=== PATIENT | female | born 1995 | race Caucasian/White ===

== ENCOUNTER 2023-12-11 10:16 | Outpatient (OUT) | payer BC, SELFPAY ==
[2023-12-11 10:44] LABS: Basophils Percent Auto 0.5 % (0.2-2.0); Eosinophils Absolute Auto 0.4 10^3/uL (0.0-0.7); Eosinophils Percent Auto 4.9 % (0.9-7.0); Hemoglobin 12.6 g/dL (12.0-16.0); Immature Granulocytes Abs Auto 0.01 10^3/uL (0.00-0.03); Immature Granulocytes Pct Auto 0.1 % (0.0-0.5); Lymphocytes Absolute Auto 3.1 10^3/uL (1.2-3.8); Lymphocytes Percent Auto 35.3 % (20.5-60.0); Mean Corpuscular HGB Conc 33.2 g/dL (29.9-35.2); Mean Corpuscular Hemoglobin 28.1 pg (26.7-34.0); Mean Corpuscular Volume 84.8 fL (81.0-99.0); Mean Platelet Volume 8.8 fL (9.5-13.5); Monocytes Absolute Auto 0.6 10^3/uL (0.3-0.8); Monocytes Percent Auto 7.1 % (1.7-12.0); Neutrophils Absolute Auto 4.6 10^3/uL (1.4-6.5); Neutrophils Percent Auto 52.1 % (43.0-75.0); Platelet Count 325 10^3/uL (150-450); Red Blood Count 4.48 10^6/uL (4.20-5.40); Red Cell Distribution Width 12.4 % (11.0-15.0); White Blood Count 8.8 10^3/uL (4.0-11.0)
[2023-12-11 10:59] LABS: INR 0.96; Partial Thromboplastin Time 32.8 sec (22.3-36.2); Prothrombin Time 10.2 sec (9.0-11.6)
[2023-12-11 11:26] LABS: HCG Quantitative <1 mIU/mL; Thyroid Stimulating Hormone 1.049 uIU/mL (0.358-3.740)
[2023-12-11 11:33] LABS: Estimated Average Glucose 103 mg/dL; Glycohemoglobin A1C 5.2 % (4.5-6.2)
[2023-12-11 11:43] LABS: Free T4 0.97 ng/dL (0.76-1.46)
== END 2023-12-11 10:17 | disposition home or self-care (01) ==
LOC: LAB 10:21
PROVIDERS: PCP Family Medicine; Visit Provider Obstetrics & Gynecology
DX: N92.0 Excessive and frequent menstruation with regular cycle (principal)
CPT/HCPCS: 36415; 83036; 84439; 84443; 84702; 85025; 85610; 85730

== ENCOUNTER 2024-02-18 20:37 | Outpatient (REF) | payer BC, SELFPAY ==
--- OUTSIDE RECORDS SUMMARY | 2024-02-18 20:42 | XMS_ITS | CCD ---
Author Organization [facility] Care Team Providers Care Parts Identification Technician Name Role Phone Chris Zazueta Attending Unavailable Saji Mays~[phone] UNKNOWN Primary Care Unavailable DENICE, DR VIVIAN Welch Consulting Unavailabl e DENICE, DR VIVIAN Welch Admitting Unavailabl e CHRISY ., DR LENNON Primary Care Unavailable DENICE, DR VIVIAN Welch Attending Unavailabl e JERICHJOEL ., JACKSON JAY Consulting Unavailchristine e MICHELLE ., DR LENNON Attending Unavailable HOY ., DR LENNON Primary Care Unavailable HOY ., DR LENNON Admitting Unavailable OSVALDO SIDDIQI Attending Unavailable OSVALDO SIDDIQI Consulting Unavailable OSVALDO SIDDIQI Admitting Unavailable CHRISY ., DR LENNON Primary Care Unavailable MICHELLE ., DR LENNON Primary Care Unavailable MARKER ., DR BROOKE Attending Unavailable MARKER ., DR BROOKE Consulting Unavailable MARKER ., DR BROOKE Admitting Unavailable JAC HOGUE Consulting Unavailable Unavailable Primary Care Provider UnavailSaji Caldera MD Primary Care Provider [phone] KRISTEN BEARD Attending Unavailable Allergies Allergy Classification Reported Allergen(s) Allergy Type Date of Onset Reaction(s) Facility (3 sources) Sulfamethoxazole / Trimethoprim; Translations: [Bactrim] Drug Allergy 7 [facility] Repository (2 sources) Sulfamethoxazole / Trimethoprim Drug Allergy 4 Unknown [facility] Medications Current Medications Medication Drug Class(es) Dates Sig (Normalized) Sig (Original) cephalexin 500 mg oral capsule (1 source) Cephalosporin Antibacterial Start: 12-11-2023 End: 12-25-2023 take 1 capsule by mouth in the morning, then take 1 capsule by mouth in the evening, then take 1 capsule by mouth at bedtime cephalexin (Keflex) 500 MG capsule Indications: Crampy pain associated with menses Take 1 capsule (500 mg) by mouth in the morning and 1 capsule (500 mg) in the evening and 1 capsule (500 mg) before bedtime. Do all this for 14 days. 102 capsule 0 12/11/2023 12/25/2023 Active citalopram 40 mg oral tablet (1 source) Serotonin Reuptake Inhibitor take 1 tablet by mouth once daily citalopram (CeleXA) 40 MG tablet TAKE 1 TABLET BY MOUTH ONCE DAILY for 90 days 0 Active 24 hr metFORMIN hydrochloride 500 mg extended release oral tablet (1 source) Biguanide Start: 12-11-2023 End: 12-10-2024 take 1 tablet by mouth every twenty-four hours at mealtime metFORMIN XR (Glucophage-XR) 500 MG 24 hr tablet Indications: Irregular periods/menstrual cycles Take 1 tablet (500 mg) by mouth in the evening. Take with meals Do not crush, chew, or split. 30 tablet 11 12/11/2023 12/10/2024 Active nystatin 100 unt/mg topical powder (1 source) Polyene Antifungal Start: 01-13-2023 nystatin (Mycostatin) 175840 UNIT/GM powder Apply a small amount to skin twice a day 0 01/13/2023 Active omeprazole 20 mg delayed release oral capsule (1 source) Proton Pump Inhibitor take 1 capsule by mouth once daily omeprazole (PriLOSEC) [address] capsule TAKE 1 CAPSULE BY MOUTH ONCE DAILY for 90 days 0 Active ondansetron 4 mg oral tablet (1 source) Serotonin-3 Receptor Antagonist Start: 04-03-2023 take 1 tablet by mouth every twenty-four hours as needed ondansetron (Zofran) 4 MG tablet Take 4 mg by mouth Daily as needed 0 04/03/2023 Active predniSONE 20 mg oral tablet (1 source) Start: 01-13-2023 take 3 tablets by mouth in the morning predniSONE (Deltasone) 20 MG tablet Take 60 mg by mouth in the morning. 0 01/13/2023 Active Vit-Fe Fumarate-FA ( Vitamin) 27-0.8 MG tablet (1 source) Vit-Fe Fumarate-FA ( Vitamin) 27-0.8 MG tablet 1 (one) time each day at the same time 0 Active Problems Active Problems Problem Classification Problem Date Documented Da te Episodic/Chronic Other female genital disorders (1 source) Abnormal uterine and vaginal bleeding, unspecified; Translations: [ABNORMAL UTERINE VAGINAL BLEED UNS] Onset: 11-11-2022 Chronic Substance-related disorders (1 source) Nicotine dependence, cigarettes, uncomplicated; Translations: [NICOTINE DEPEND CIGARETTES UNCOMP] Onset: 11-11-2022 Chronic Unclassified (3 sources) COUGH, UNSPECIFIED; Translations: [COUGH, UNSPECIFIED] Onset: 11-07-2022 Unclassified (1 source) UNVACCINATED FOR COVID-19; Translations: [UNVACCINATED FOR COVID-19] Onset: 11-07-2022 Unclassified (4 sources) CONTACT W/AND (SUSP) EXPOS COVID-19; Translations: [CONTACT W/AND (SUSP) EXPOS COVID-19] Onset: 10-25-2022 Past or Other Problems Problem Classification Problem Date Documented Da te Episodic/Chronic Other aftercare (1 source) Other halfway (current) drug therapy; Translations: [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] Onset: 11-11-2022 Episodic Other upper respiratory disease (1 source) Nasal congestion; Translations: [NASAL CONGESTION] Onset: 10-25-2022 Episodic Other upper respiratory infections (1 source) Acute upper respiratory infection, unspecified; Translations: [ACUTE UP RESPIRATORY INFECTION UNS] Onset: 11-11-2022 Episodic Unclassified (1 source) COUGH, UNSPECIFIED; Translations: [COUGH, UNSPECIFIED] Onset: 11-07-2022 Unclassified (1 source) CONTACT W/AND (SUSP) EXPOS COVID-19; Translations: [CONTACT W/AND (SUSP) EXPOS COVID-19] Onset: 10-22-2022 Urinary tract infections (1 source) Urinary tract infection, site not specified; Translations: [UTI SITE NOT SPECIFIED] Onset: 11-11-2022 Episodic Results Test Name Value Interpretation Reference Range Facil ity ALL CBC WITH AUTO DIFFon BASOPHILS ABSOLUTE AUTO 0.0 [facility] Basophils/100 WBC (Bld) 0.5 % 0.2 - 2.0 % [facility] Eosinophils/100 WBC (Bld) 4.9 % 0.9 - 7.0 % [facility] Erythrocyte distribution width (RBC) [Ratio] 12.4 % 11.0 - 15.0 % [facility] Hematocrit (Bld) [Volume fraction] 38.0 % 36.0 - 48.0 % [facility] Hemoglobin (Bld) [Mass/Vol] 12.6 g/dL 12.0 - 16.0 g/dL [facility] IMMATURE GRANULOCYTES ABS AUTO 0.01 [facility] Immature granulocytes/100 WBC (Bld) 0.1 % 0.0 - 0.5 % [facility] Interpretation and review of laboratory results Abnormal [facility] LYMPHOCYTES ABSOLUTE AUTO 3.1 [facility] Lymphocytes/100 WBC (Bld) 35.3 % 20.5 - 60.0 % [facility] MCH (RBC) [Entitic mass] 28.1 pg 26.7 - 34.0 pg [facility] MCHC (RBC) [Mass/Vol] 33.2 g/dL 29.9 - 35.2 g/dL [facility] MCV (RBC) [Entitic vol] 84.8 fL 81.0 - 99.0 fL [facility] MONOCYTES ABSOLUTE AUTO 0.6 [facility] Monocytes/100 WBC (Bld) 7.1 % 1.7 - 12.0 % [facility] NEUTROPHILS ABSOLUTE AUTO 4.6 [facility] Neutrophils/100 WBC (Bld) 52.1 % 43.0 - 75.0 % [facility] Platelet mean volume (Bld) [Entitic vol] 8.8 fL Low 9.5 - 13.5 fL [facility] EO # 0.4 [facility] PLT 325 [facility] RBC 4.48 [facility] WBC 8.8 [facility] CULTURE URINEon 11-07-2022 CULTURE URINE Culture Observations: MODERATE GROWTH OF MIXED GENITAL RASHIDA. NO POTENTIAL PATHOGENS SEEN. Normal [facility] Comment on above: Performed By: #### U RCX #### [facility] [address] [address] [address] Crys Hutchinson ER URINE PROFILEon 3 Bilirubin Ql (U) Negative Normal NEGATIVE [facility] Comment on above: Performed By: #### P REGU, UMICRO, ERUR #### [facility] [address] [place], [place] [address] Dr. Crys Hutchinson Clarity (U) CLEAR Normal CLEAR [facility] Comment on above: Performed By: #### P REGU, UMICRO, ERUR #### [facility] [address] [address] [address] Crys Hutchinson Color (U) LT. YELLOW Normal YELLOW [facility] Comment on above: Performed By: #### P REGU, UMICRO, ERUR #### [facility] [address] [address] [address] Crys CLAYTOND A micrscopic examination will be performed if indicated. Normal [facility] Comment on above: Performed By: #### P REGU, UMICRO, ERUR #### [facility] [address] [address] [address] Crys Hutchinson Glucose Ql (U) Negative Normal NEGATIVE [facility] Comment on above: Performed By: #### P REGU, UMICRO, ERUR #### [facility] [address] [address] [address] Crys Hutchinson Hemoglobin Ql (U) LARGE Abnormal NEGATIVE [facility] Comment on above: Performed By: #### P REGU, UMICRO, ERUR #### [facility] [address] [address] [address] Crys Hutchinson Ketones Ql (U) Negative Normal NEGATIVE [facility] Comment on above: Performed By: #### P REGU, UMICRO, ERUR #### [facility] [address] [address] [address] Crys Hutchinson LEUKOCYTES TRACE Abnormal NEGATIVE [facility] Comment on above: Performed By: #### P REGU, UMICRO, ERUR #### [facility] [address] [address] [address] Crys Hutchinson Nitrite Ql (U) Negative Normal NEGATIVE [facility] Comment on above: Performed By: #### P REGU, UMICRO, ERUR #### [facility] [address] [address] [address] Crys Hutchinson pH (U) 5.5 [pH] Normal 5-9 [facility] Comment on above: Performed By: #### P REGU, UMICRO, ERUR #### [facility] [address] [address] [address] Crys Hutchinson SPEC GRAVITY 1.020 Normal 1.005-<=1.025 [facility] Comment on above: Performed By: #### P REGU, UMICRO, ERUR #### [facility] [address] [address] [address] Crys Hutchinson UA PROTEIN Negative Normal NEGATIVE/ TRACE [facility] Comment on above: Performed By: #### P REGU, UMICRO, ERUR #### [facility] [address] [place] [address] Dr. Crys Hutchinson UR MICRO IND INDICATED Normal [facility] Comment on above: Performed By: #### P REGU, UMICRO, ERUR #### [facility] [address] [place] [address] Dr. Crys Hutchinson Urobilinogen Qn (U) 0.2 {Ryann'U}/dL Normal 0.2 - 1. 0 [facility] Comment on above: Performed By: #### P REGU, UMICRO, ERUR #### [facility] [address] [place] [address] Dr. Crys Hutchinson URon 11-07-2022 , QUAL Negative Normal NEGATIVE [facility] Comment on above: Performed By: #### P REGU, UMICRO, ERUR #### [facility] [address] [place] [address] Dr. Crys Hutchinson URINE MICROSCOPIC ONLYon BACTERIA SMALL Abnormal NONE SEEN [facility] Comment on above: Performed By: #### P REGU, UMICRO, ERUR #### [facility] [address] [place] [address] Dr. Crys Hutchinson Bacteria identified Cx Nom (U) INDICATED Normal [facility] Comment on above: Performed By: #### P REGU, UMICRO, ERUR #### [facility] [address] [place] [address] Dr. Crys Hutchinson CAST NONE SEEN Normal NONE SEEN [facility] Comment on above: Performed By: #### P REGU, UMICRO, ERUR #### [facility] [address] [address] [address] Crys Hutchinson Crystals LM Nom (Urine sed) NONE SEEN Normal NONE SEEN [facility] Comment on above: Performed By: #### P REGU, UMICRO, ERUR #### [facility] [address] [address] [address] Crys Hutchinson Epithelial cells LM Ql (Urine sed) FEW Abnormal NONE SEEN /RARE [facility] Comment on above: Performed By: #### P REGU, UMICRO, ERUR #### [facility] [address] [address] [address] Crys Hutchinson MUCOUS NONE SEEN Normal NONE SEEN [facility] Comment on above: Performed By: #### P REGU, UMICRO, ERUR #### [facility] [address] [address] [address] Crys Hutchinson RBC 10-20 Abnormal 0-2 [facility] Comment on above: Performed By: #### P REGU, UMICRO, ERUR #### [facility] [address] [address] [address] Crys Hutchinson WBC 2-5 Abnormal NONE SEEN [facility] Comment on above: Performed By: #### P REGU, UMICRO, ERUR #### [facility] [address] [address] [address] Crys Hutchinson XR CHEST 1 Von 11-06-2022 XR CHEST 1 V EXAMINATION: XR CHEST 1 V HISTORY: Cough COMPARISON: None. TECHNIQUE: Portable chest FINDINGS: The lung parenchyma is free of consolidation or infiltrate. No pneumothorax or pleural effusion. The cardiac, mediastinal and hilar contours are normal. The visualized osseous structures exhibit no gross abnormality. IMPRESSION: Normal chest x-ray. Electronically authenticated by: JAC HOGUE Date: 2022-11-05 22:55 Normal [facility]on 10-27 SARS-CoV-2 (COVID-19) RNA ALTAF+probe Ql (Unsp spec) Not detected Normal NOT DETECTED [facility] Comment on above: Result Comment: This test is not yet approved or cleared by the [place] FDA. When there are no FDA-approved or cleared tests available, and other criteria are met, FDA can make tests available under an emergency access mechanism called an Emergency Use Authorization (EUA). The EUA for this test is supported by the Building Illuminating Engineer of Health and Human Service's (HHS's) declaration that circumstances exist to justify the emergency use of in vitro diagnostics for the detection and/or diagnosis of the virus that causes COVID-19. This EUA will remain in effect (meaning this test can be used) for the duration of the COVID-19 declaration justifying emergency of IVDs, unless it is terminated or revoked by FDA (after which the test may no longer be used). When diagnostic testing is negative, the possibility of a false negative should be considered in the context of a patient's recent exposures and the presence of clinical signs and symptoms consistent with SARS-CoV-2. Performed By: #### C VDTBH #### [facility] [address] [place] [address] Dr. Crys Hutchinson GROUP A STREP CULTUREon 10-27 S. pyogenes Ag Ql (Unsp spec) Culture Observations: NEGATIVE FOR GROUP A STREPTOCOCCUS. Normal [facility] Comment on above: Performed By: #### S PAT GRASTCX #### [facility] [address] [place] [address] Dr. Crys Hutchinson INFLUENZA A AND B AGon 11-05 INFLUENZA A AG Negative Normal NEGATIVE SEE COMMENT [facility] Comment on above: Performed By: #### I NFLUAB #### [facility] [address] [place] [address] Dr. Crys Hutchinson INFLUENZA B AG Negative Normal NEGATIVE SEE COMMENT [facility] Comment on above: Performed By: #### I NFLUAB #### [facility] [address] [place] [address] Dr. Crys Hutchinson STREPT SCREENon 11-05-2022 STREP SCREEN A Negative Normal NEGATIVE [facility] Comment on above: Performed By: #### S PAT GRASTCX #### [facility] [address] [place], [place] [id number] Dr. Crys Hutchinson Covid-19 PCR [facility]on 09-27 SARS-CoV-2 (COVID-19) RNA ALTAF+probe Ql (Unsp spec) Not detected Normal NOT DETECTED [facility] Comment on above: Result Comment: This test is not yet approved or cleared by the [place] FDA. When there are no FDA-approved or cleared tests available, and other criteria are met, FDA can make tests available under an emergency access mechanism called an Emergency Use Authorization (EUA). The EUA for this test is supported by the Lester of Health and Human Service's (HHS's) declaration that circumstances exist to justify the emergency use of in vitro diagnostics for the detection and/or diagnosis of the virus that causes COVID-19. This EUA will remain in effect (meaning this test can be used) for the duration of the COVID-19 declaration justifying emergency of IVDs, unless it is terminated or revoked by FDA (after which the test may no longer be used). When diagnostic testing is negative, the possibility of a false negative should be considered in the context of a patient's recent exposures and the presence of clinical signs and symptoms consistent with SARS-CoV-2. Performed By: #### P RIDGE PALACIOS, YOLANDA #### [facility] [address] [place] [address] Dr. Crys Hutchinson INFLUENZA A AND B AGon 10-22 [facility] SEE BELOW Normal [facility] Comment on above: Result Comment: Nega tive for Flu A protein angiten. Infection due to Flu A cannot be ruled out. Flu A angiten in the sample may be below the detection limit of the test. Performed By: #### I NFLUAB #### [facility] [address] [place] [address] Dr. Crys Hutchinson INFLUBNEG SEE BELOW Normal [facility] Comment on above: Result Comment: Nega tive for Flu B protein antigen. Infection due to Flu B cannot be ruled out. Flu B antigen in the sample may be below the detection limit of the test. Performed By: #### I NFLUAB #### [facility] [address] [place] [address] Dr. Crys Hutchinson INFLUENZA A AG Negative Normal NEGATIVE SEE COMMENT [facility] Comment on above: Performed By: #### I NFLUAB #### [facility] [address] [address] [address] Crys Hutchinson INFLUENZA B AG Negative Normal NEGATIVE SEE COMMENT [facility] Comment on above: Performed By: #### I NFLUAB #### [facility] [address] [address] [address] Crys Hutchinson INTERNAL CONTROLS Within Normal Limits Normal Within Normal Limits [facility] Comment on above: Performed By: #### I NFLUAB #### [facility] [address] [address] [address] Crys Hutchinson Encounters Encounter Date Encounter Type Care Provider Facility Start: 12-11-2023 [facility] Result Encounter Kristen Kisha DO Work Phone: [facility] Unsolicited Start: 12-11-2023 [facility] Result Encounter Kristen Kisha DO Work Phone: [facility] Unsolicited Start: 12-11-2023 End: 12-11-2023 ambulatory KRISTEN KISHA Not Available Start: 12-10-2023 Chart abstracting Kristen Kisha DO Work Phone: [facility] Start: 01-15-[address] SAJI MAYS . Facili ty:[facility] Start: 11-07-2022 End: 11-07-[address] VIVIAN GALDAMEZ Facility:[facility] Start: 11-05-2022 End: 11-06-[address] SAJI MAYS . Facility:[facility] Start: 10-22-2022 End: 10-22-2022 ambulatory OSVALDO SIDDIQI Facility:[facility] Start: 12-31-2018 End: 01-01-2019 Patient encounter procedure Chris Morrisshant Facility:CD:[id number] Procedures Date Procedure Procedure Detail Performing Clinician Start: 12-11-2023 ALL CBC WITH AUTO DIFF Kristen Kisha DO Work Phone: Plan of Treatment Date Care Activity Detail Author Start: 02-18-2024 End: 02-18-2024 Patient encounter procedure 02/18/2024 3:00 PM EDT Office Visit [facility] [address] [place] [address] Kristen Beard, DO [address] [place] [address] [facility] Start: 12-11-2023 End: 12-11-2023 Patient encounter procedure 12/11/2023 9:00 AM EST Office Visit [facility] [address] [place] [address] Kristen Beard, DO [address] [place] [address] Irregular periods/menstrual cycles; Crampy pain associated with menses [facility] Comment on above: Irregular periods/me nstrual cycles; Crampy pain associated with menses Payers Date Payer Category Payer Unknown BCBS BCBS [id number] 2023-Present [phone] [address] [place] [address] [id number] 2023 Unknown [id number] 2018 Private Health Insurance 1997 Unknown [id number] 1997 Unknown [id number] 1997 Unknown [id number] 1997 Unknown [id number] 1997 Unknown [id number] 93 1997 Unknown [id number] 1959 Self-pay [id number] 1957 Unknown [id number] Social History Date Type Detail Facility Start: 12-10-2023 Tobacco smoking stat [facility] Tobacco smoking consumption unknown [facility] Start: 12-10-2023 End: 12-11-2023 Alcohol intake Ex-drinker (finding) [facility] Start: 12-10-2023 Tobacco Comment * current smok er frequency unknown [facility] Start: 12-10-2023 Alcohol Comment Recently quit [facility] Start: 1995 Sex Assigned At Not on file [facility] Gender identity Not on file [facility] Summary Purpose Family History No Family History Records FoundNo Family History Records FoundNo Family History Records Found Advance Directives No Advanced Directives Records FoundNo Advanced Directives Records FoundNo Advanced Directives Records Found Additional Source Comments INFORMATION SOURCE (unrecogn ized section and content) DATE CREATED AUTHOR 01/02/2019 [facility] DATE CREATED AUTHOR AUTHOR'S ORGANIZ ATION 02/28/2023 [facility] DATE CREATED AUTHOR AUTHOR'S ORGANIZ ATION 12/13/2023 [facility] EPIC Care Teams (unrecognized sec tion and content) Parts Identification Technician Relationship Specialty Start Date End Date Saji Mays MD [address] [place] [address] PCP - General Family Medicine 12/11/23 FOR RECORDS PERTAINING TO PATIENTS WHO ARE OR HAVE BEEN ENROLLED IN A CHEMICAL DEPENDENCY/SUBSTANCEABUSE PROGRAM, SOME INFORMATION MAY BE OMITTED. This clinical summary was aggregated from multiple sources. Caution should be exercised in using it in the provision of clinical care. This summary normalizes information from multiple sources, and as a consequence, information in this document may materially change the coding, format and clinical context of patient data. In addition, data may be omitted in some cases. CLINICAL DECISIONS SHOULD BE BASED ON THE PRIMARY CLINICAL RECORDS. [facility]. provides no warranty or guarantee of the accuracy or completeness of information in this document.
[2024-02-24 14:09] LABS: Age Gdln ACOG Testing Note (.); IGP, rfx Aptima HPV ASCU Note (.)
== END 2024-02-18 20:38 | disposition home or self-care (01) ==
LOC: LAB 20:37
PROVIDERS: PCP Family Medicine; Visit Provider Obstetrics & Gynecology
DX: Z01.419 Encounter for gynecological examination (general) (routine) without abnormal findings (principal)
CPT/HCPCS: G0145

== ENCOUNTER 2024-11-23 16:37 | Outpatient (OUT) | payer BC, SELFPAY ==
--- OUTSIDE RECORDS SUMMARY | 2024-11-23 16:42 | XMS_ITS | CCD ---
Author Organization [facility] [employer] (P)[facility] Care Team Providers Care Agriculture Scientist Name Role Phone Chris Zazueta Attending Unavailable Saji [phone] UNKNOWN Primary Care Unavailable DENICE, DR VIVIAN Welch Consulting Unavailabl e DENICE, DR VIVIAN Welch Admitting Unavailabl e MICHELLE ., DR LENNON Primary Care Unavailable JOVANIECK, DR VIVIAN Welch Attending Unavailabl e GRECHJOEL ., JACKSON JAY Consulting Unavailabl e HORsoa ., DR LENNON Attending Unavailable HOY ., DR LENNON Primary Care Unavailable HORosa ., DR LENNON Admitting Unavailable OSVALDO SIDDIQI Attending Unavailable OSVALDO SIDDIQI Consulting Unavailable OSVALDO SIDDIQI Admitting Unavailable MICHELLE ., DR LENNON Primary Care Unavailable HOY ., DR LENNON Primary Care Unavailable MARKER ., DR BROOKE Attending Unavailable MARKER ., DR BROOKE Consulting Unavailable MARKER ., DR BROOKE Admitting Unavailable JAC HOGUE Consulting Unavailable Unavailable Primary Care Provider Unavailchristine Mays MD, Saji Mirza Primary Care Provider [phone] KRISTEN BEARD Attending Unavailable KRISTEN BEARD Attending Unavailable ANNETTE BAEZ Attending Unavailable ANNETTE BAEZ Attending Unavailable Allergies Allergy Classification Reported Allergen(s) Allergy Type Date of Onset Reaction(s) Facility (3 sources) Sulfamethoxazole / Trimethoprim; Translations: [Bactrim] Drug Allergy 7 [facility] Repository (8 sources) Sulfamethoxazole / Trimethoprim Drug Allergy 4 [...] 12/25/2023 Active citalopram 40 mg oral tablet (7 sources) Serotonin Reuptake Inhibitor End: 11-15-2024 take 1 tablet by mouth once daily citalopram (CeleXA) 40 MG tablet TAKE 1 TABLET BY MOUTH ONCE DAILY for 90 days 11/15/2024 Discontinued clindamycin 10 mg/ml topical lotion (5 sources) Lincosamide Antibacterial Start: 09-15-2024 clindamycin (Cleocin T) 1 % lotion Indications: Acne vulgaris Apply thin layer to face, once daily in the morning, 30 day supply 60 mL 11 09/15/2024 Active 24 hr metFORMIN hydrochloride 500 mg extended release oral tablet (4 sources) Biguanide Start: 12-11-2023 End: 12-10-2024 take 1 tablet by mouth every twenty-four hours at mealtime metFORMIN XR (Glucophage-XR) 500 MG 24 hr tablet Indications: Irregular periods/menstrual cycles Take 1 tablet (500 mg) by mouth in the evening. Take with meals Do not crush, chew, or split. 30 tablet 11 12/11/2023 09/15/2024 Discontinued nystatin 100 unt/mg topical powder (4 sources) Polyene Antifungal Start: 01-13-2023 End: 09-15-2024 nystatin (Mycostatin) [id number] UNIT/GM powder Apply a small amount to skin twice a day 01/13/2023 09/15/2024 Discontinued omeprazole 20 mg delayed release oral capsule (7 sources) Proton Pump Inhibitor take 1 capsule by mouth once daily omeprazole (PriLOSEC) [address] capsule TAKE 1 CAPSULE BY MOUTH ONCE DAILY for 90 days Active ondansetron 4 mg oral tablet (7 sources) Serotonin-3 Receptor Antagonist Start: 04-03-2023 take 1 tablet by mouth every twenty-four hours as needed ondansetron (Zofran) 4 MG tablet Take 4 mg by mouth Daily as needed 04/03/2023 Active predniSONE 20 mg oral tablet (4 sources) Start: 01-13-2023 End: 09-15-2024 take 3 tablets by mouth in the morning predniSONE (Deltasone) 20 MG tablet Take 60 mg by mouth in the morning. 01/13/2023 09/15/2024 Discontinued Vit-Fe Fumarate-FA ( Vitamin) 27-0.8 MG tablet (4 sources) End: 09-15-2024 Vit-Fe Fumarate-FA ( Vitamin) 27-0.8 MG tablet 1 (one) time each day at the same time 09/15/2024 Discontinued Vit-Fe Fumarate-FA ( Vitamin) 27-0.8 MG tablet 1 (one) time each day at the same time Active Vit-Fe Fumarate-FA ( Vitamin) 27-0.8 MG tablet 1 (one) time each day at the same time 0 Active tretinoin 0.25 mg/ml topical cream (5 sources) Retinoid Start: 09-15-2024 End: 09-15-2025 tretinoin (Retin-A) 0.025 % cream Indications: Acne vulgaris Apply topically at bedtime Apply thin layer to face at bedtime 45 g 11 09/15/2024 09/15/2025 Active triamcinolone acetonide 1 mg/ml topical cream (5 sources) Corticosteroid Start: 09-15-2024 triamcinolone (Kenalog) 0.1 % cream Indications: Psoriasis vulgaris (CMS/HCC) Apply topically 2 (two) times a day as needed for rash 240 g 11 09/15/2024 Active Problems Active Problems Problem Classification Problem Date Documented Da te Episodic/Chronic Other aftercare (2 sources) Taking high risk medication; Translations: [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 lines 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] 11-15-2024 Episodic Other female genital disorders (1 source) Abnormal uterine and vaginal bleeding, unspecified; Translations: [ABNORMAL UTERINE VAGINAL BLEED UNS] Onset: 11-11-2022 Chronic Other inflammatory condition of skin (4 sources) Psoriasis vulgaris; Translations: [Psoriasis vulgaris] 09-15-2024 Chronic Other skin disorders (4 sources) Acne vulgaris; Translations: [Acne vulgaris] 09-15-2024 Episodic Substance-related disorders (1 source) Nicotine dependence, cigarettes, [...] te Episodic/Chronic Other aftercare (1 source) Other long lines 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; Translations: [OTH [facility] CURRENT DRUG THERAPY] Onset: 11-11-2022 Episodic Other [...] WITH AUTO DIFFon BASOPHILS ABSOLUTE AUTO 0.0 [facility] Basophils/100 WBC (Bld) 0.5 % 0.2 - 2.0 % [facility] Eosinophils/100 WBC (Bld) 4.9 % 0.9 - 7.0 % [facility] Erythrocyte distribution width (RBC) [Ratio] 12.4 % 11.0 - 15.0 % [facility] Hematocrit (Bld) [Volume fraction] 38.0 % 36.0 - 48.0 % [facility] ([facility]ld) [Mass/Vol] 12.6 g/dL 12.0 - 16.0 g/dL [facility] IMMATURE GRANULOCYTES ABS AUTO 0.01 [facility] Immature granulocytes/100 WBC (Bld) 0.1 % 0.0 - 0.5 % [facility] Interpretation and review of laboratory results Abnormal [facility] LYMPHOCYTES ABSOLUTE AUTO 3.1 [facility] Lymphocytes/100 WBC (Bld) 35.3 % 20.5 - 60.0 % [facility] MCH (RBC) [Entitic mass] 28.1 pg 26.7 - 34.0 pg [facility] MCHC (RBC) [Mass/Vol] 33.2 g/dL 29.9 - 35.2 g/dL [facility] MCV (RBC) [Entitic vol] 84.8 fL 81.0 - 99.0 fL [facility] MONOCYTES ABSOLUTE AUTO 0.6 [facility] Monocytes/100 WBC (Bld) 7.1 % 1.7 - 12.0 % [facility] NEUTROPHILS ABSOLUTE AUTO 4.6 [facility] Neutrophils/100 WBC (Bld) 52.1 % 43.0 - 75.0 % [facility] Platelet mean volume (Bld) [Entitic vol] 8.8 fL Low 9.5 - 13.5 fL [facility]T [facility] RBC 4.48 [facility] WBC 8.8 [facility] CULTURE URINEon 11-07-2022 CULTURE URINE Culture Observations: MODERATE GROWTH OF MIXED GENITAL RASHIDA. NO POTENTIAL PATHOGENS SEEN. Normal [facility] Comment on above: Performed By: #### U RCX #### [facility] [address] [address] [address] Crys Hutchinson ER URINE PROFILEon 3 Bilirubin Ql (U) Negative Normal NEGATIVE [facility] Comment on above: Performed By: #### P RIDGE PALACIOS, ERUR #### [facility] [address] [address] [address] Crys Hutchinson Clarity (U) CLEAR Normal CLEAR [facility] Comment on above: Performed By: #### P REGUALEJANDRARO, ERUR #### [facility] [address] [address] [address] Crys Hutchinson Color (U) LT. YELLOW Normal YELLOW [facility] Comment on above: Performed By: #### P REGU, UMICRO, ERUR #### [facility] [address] [address] [address] Crys RIVAS A micrscopic examination will be performed if indicated. Normal [facility] Comment on above: Performed By: #### P REGU, UMICRO, ERUR #### [facility] [address] [address] [address] Crys Hutchinson Glucose Ql (U) Negative Normal NEGATIVE [facility] Comment on above: Performed By: #### P REGU, UMICRO, ERUR #### [facility] [address] [address] [address] Crys Hutchinson Hemoglobin Ql (U) LARGE Abnormal NEGATIVE The [facility] Comment on above: Performed By: #### P REGU, UMICRO, ERUR #### [facility] [address] [address] [address] Crys Hutchinson Ketones Ql (U) Negative Normal NEGATIVE [facility] Comment on above: Performed By: #### P REGU, UMICRO, ERUR #### [facility] [address] [address] [address] Crys Hutchinson LEUKOCYTES TRACE Abnormal NEGATIVE [facility] Comment on above: Performed By: #### P REGU, UMICRO, ERUR #### [facility] [address] [address] [address] Crys Hutchinson Nitrite Ql (U) Negative Normal NEGATIVE [facility] Comment on above: Performed By: #### P REGU, UMICRO, ERUR #### [facility] [address] [address] [address] Crys Hutchinson pH (U) 5.5 [pH] Normal 5-9 [facility] Comment on above: Performed By: #### P REGU, UMICRO, ERUR #### [facility] [address] [address] [address] Crys Hutchinson SPEC GRAVITY 1.020 Normal 1.005-<=1.025 The [facility] Comment on above: Performed By: #### P REGU, UMICRO, ERUR #### [facility] [address] [address] [address] Crys Hutchinson UA PROTEIN Negative Normal NEGATIVE/ TRACE [facility] Comment on above: Performed By: #### P REGU, UMICRO, ERUR #### [facility] [address] [address] [address] Crys Hutchinson UR MICRO IND INDICATED Normal [facility] Comment on above: Performed By: #### P REGU, UMICRO, ERUR #### [facility] [address] [address] [address] Crys Hutchinson Urobilinogen Qn (U) 0.2 {Ryann'U}/dL Normal 0.2 - 1. 0 [facility] Comment on above: Performed By: #### P REGU, UMICRO, ERUR #### [facility] [address] [place] [address] Dr. Crys Hutchinson URon 11-07-2022 , QUAL Negative Normal NEGATIVE [facility] Comment on above: Performed By: #### P REGU, UMICRO, ERUR #### [facility] [address] [place] [address] Dr. Crys Hutchinson URINE MICROSCOPIC ONLYon BACTERIA SMALL Abnormal NONE SEEN [facility] Comment on above: Performed By: #### P REGU, UMICRO, ERUR #### [facility] [address] [place] [address] Dr. Crys Hutchinson Bacteria identified Cx Nom (U) INDICATED Normal [facility] Comment on above: Performed By: #### P REGU, UMICRO, ERUR #### [facility] [address] [address] [address] Crys Hutchinson CAST NONE SEEN Normal NONE SEEN [facility] Comment on above: Performed By: #### P REGU, UMICRO, ERUR #### [facility] [address] [place] [address] Dr. Crys Hutchinson Crystals LM Nom (Urine sed) NONE SEEN Normal NONE SEEN [facility] Comment on above: Performed By: #### P REGU, UMICRO, ERUR #### [facility] [address] [address] [address] Crys Hutchinson Epithelial cells LM Ql (Urine sed) FEW Abnormal NONE SEEN /RARE [facility] Comment on above: Performed By: #### P REGU, UMICRO, ERUR #### [facility] [address] [address] [address] Crys Hutchinson MUCOUS NONE SEEN Normal NONE SEEN [facility] Comment on above: Performed By: #### P REGU, UMICRO, ERUR #### [facility] [address] [address] [address] Crys Hutchinson RBC 10-20 Abnormal 0-2 [facility] Comment on above: Performed By: #### P REGU, UMICRO, ERUR #### [facility] [address] [address] [address] Crys Hutchinson WBC 2-5 Abnormal NONE SEEN [facility] Comment on above: Performed By: #### P REGU, UMICRO, ERUR #### [facility] [address] [address] [address] Crys Hutchinson XR CHEST 1 Von [...] JAC HOGUE Date: 2022-11-05 22:55 Normal [facility] Covid-19 PCR (CVDTB)on 10-27 SARS-CoV-2 (COVID-19) RNA ALTAF+probe Ql (Unsp spec) Not detected Normal NOT DETECTED [facility] Comment on above: Result Comment: This test is not yet approved or cleared by the [place] FDA. When there are no FDA-approved or cleared tests available, and other criteria are met, FDA can make tests available under an emergency access mechanism called an Emergency Use Authorization (EUA). The EUA for this test is supported by the [place] of Health and Human Service's (HHS's) declaration [...] SARS-CoV-2. Performed By: #### C VDTBH #### [facility] [address] [place] [address] Dr. Crys Hutchinson GROUP A STREP CULTUREon 10-27 S. pyogenes Ag Ql (Unsp spec) Culture Observations: NEGATIVE FOR GROUP A STREPTOCOCCUS. Normal [facility] Comment on above: Performed By: #### S PAT GRASTCX #### [facility] [address] [place] [address] Dr. Crys Hutchinson INFLUENZA A AND B AGon 11-05 INFLUENZA A AG Negative Normal NEGATIVE SEE COMMENT [facility] Comment on above: Performed By: #### I NFLUAB #### [facility] [address] [place] [address] Dr. Crys Hutchinson INFLUENZA B AG Negative Normal NEGATIVE SEE COMMENT [facility] Comment on above: Performed By: #### I NFLUAB #### [facility] [address] [place] [address] Dr. Crys Hutchinson STREPT SCREENon 11-05-2022 STREP SCREEN A Negative Normal NEGATIVE [facility] Comment on above: Performed By: #### S PAT GRASTCX #### [facility] [address] [place] [address] Dr. Crys Hutchinson Covid-19 PCR ([facility])on 09-27 SARS-CoV-2 (COVID-19) RNA ALTAF+probe Ql (Unsp spec) Not detected Normal NOT DETECTED [facility] Comment on above: Result Comment: This test is not yet approved or cleared by the [place] FDA. When there are no FDA-approved or cleared tests available, and other criteria are met, FDA can make tests available under an emergency access mechanism called an Emergency Use Authorization (EUA). The EUA for this test is supported by the [place] of Health and Human Service's (HHS's) declaration [...] SARS-CoV-2. Performed By: #### P RIDGE PALACIOS, LIAMR #### [facility] [address] [place] [address] Dr. Crys Hutchinson INFLUENZA A AND B AGon 10-[facility] BEL[facility] Normal [facility] Comment on above: Result Comment: Nega tive for Flu A protein angiten. Infection due to Flu A cannot be ruled out. Flu A angiten in the sample may be below the detection limit of the test. Performed By: #### I NFLUAB #### [facility] [address] [place] [address] Dr. Crys Hutchinson INFLUBNEG SEE BELOW Normal [facility] Comment on above: Result Comment: Nega tive for Flu B protein antigen. Infection due to Flu B cannot be ruled out. Flu B antigen in the sample may be below the detection limit of the test. Performed By: #### I NFLUAB #### [facility] [address] [place] [address] Dr. Crys Hutchinson INFLUENZA A AG Negative Normal NEGATIVE SEE COMMENT [facility] Comment on above: Performed By: #### I NFLUAB #### [facility] [address] [place] [address] Dr. Crys Hutchinson INFLUENZA B AG Negative Normal NEGATIVE SEE COMMENT [facility] Comment on above: Performed By: #### I NFLUAB #### [facility] [address] [address] [address] Crys Hutchinson INTERNAL CONTROLS Within Normal Limits Normal Within Normal Limits [facility] Comment on above: Performed By: #### I NFLUAB #### [facility] [address] [address] [address] Crys Hutchinson Encounters Encounter Date Encounter Type Care Provider Facility Start: 11-15-2024 End: 11-15-2024 Bamboo flowsheet Annette Northeim PA Work Phone: [facility] Start: 11-15-2024 End: 11-15-2024 Bamboo flowsheet Annette Northeim PA Work Phone: [facility] Start: 11-15-2024 End: 11-15-2024 Office outpatient visit 25 minutes Annette Northeim PA Work Phone: [facility] Comment on above: Psoriasis vulgaris ( CMS/HCC) (Primary Dx); High risk medication use; Acne vulgaris Start: 11-15-2024 End: 11-15-2024 ambulatory ANNETTE NORTHEIM Not Available Start: 09-15-2024 End: 09-15-2024 Bamboo flowsheet Annette Northeim PA Work Phone: [facility] Start: 09-15-2024 End: 09-15-2024 Bamboo flowsheet Annette Northeim PA Work Phone: [facility] Start: 09-15-2024 End: 09-15-2024 Office outpatient new 45 minutes Annette Northeim PA Work Phone: [facility] Comment on above: Psoriasis vulgaris ( CMS/HCC); Acne vulgaris Start: 09-15-2024 End: 09-15-2024 ambulatory ANNETTE NORTHEIM Not Available Start: 02-18-2024 End: 02-18-2024 ambulatory KRISTEN KISHA Not Available Start: 12-11-2023 [facility] Result Encounter Kristen Kisha DO Work Phone: [facility] Unsolicited Start: 12-11-2023 Clinisync Result Encounter Kristen Beard DO Work Phone: [facility] Unsolicited Start: 12-11-2023 End: 12-11-2023 ambulatory KRISTEN BEARD Not Available Start: 12-10-2023 Chart abstracting Kristen Beard DO Work Phone: [facility] Start: 01-15-[address] SAJI MAYS . Facili ty:[facility]1 Start: 11-07-2022 End: 11-07-[address] VIVIAN GALDAMEZ Facility:[facility] Start: 11-05-2022 End: 11-06-[address] SAJI MAYS . Facility:[facility] Start: 10-22-2022 End: 10-22-2022 ambulatory OSVALDO SIDDIQI Facility:[facility] Start: 12-31-2018 End: 01-01-2019 Patient encounter procedure Chris Zazueta Facility::[id number] Procedures Date Procedure Procedure Detail Performing Clinician Start: 12-11-2023 ALL CBC WITH AUTO DIFF Kristen Beard DO Work Phone: Plan of Treatment Date Care Activity Detail Author Start: 03-15-2025 End: 03-15-2025 Patient encounter procedure 03/15/2025 8:50 AM EDT Office Visit [facility] [address] [place] [id number] Annette Baez PA [address] [place] [address] [facility] Start: 02-28-2025 End: 02-28-2025 Patient encounter procedure 02/28/2025 4:00 PM EDT Office Visit [facility] [address] [address] Kristen Beard, DO [address] [place] [address] [facility] Start: 11-15-2024 End: 11-15-2025 Alanine aminotransferase [Enzymatic activity/volume] in Serum or Plasma ALT Lab Routine Psoriasis vulgaris (CMS/HCC) High risk medication use Expected: 11/15/2024 (Approximate), Expires: 11/15/2025 [facility] Comment on above: Expected: 11/15/2024 (Approximate), Expires: 11/15/2025 Start: 11-15-2024 End: 11-15-2025 Aspartate aminotransferase [Enzymatic activity/volume] in Serum or Plasma AST Lab Routine Psoriasis vulgaris (CMS/HCC) High risk medication use Expected: 11/15/2024 (Approximate), Expires: 11/15/2025 [facility] Comment on above: Expected: 11/15/2024 (Approximate), Expires: 11/15/2025 Start: 11-15-2024 End: 11-15-2025 CBC W Auto Differential panel - Blood CBC and differential Lab Routine Psoriasis vulgaris (CMS/HCC) High risk medication use Expected: 11/15/2024 (Approximate), Expires: 11/15/2025 [facility] Comment on above: Expected: 11/15/2024 (Approximate), Expires: 11/15/2025 Start: 11-15-2024 End: 11-15-2025 Hepatitis B virus surface Ag [Presence] in Serum or Plasma by Immunoassay Hepatitis B surface antigen Lab Routine Psoriasis vulgaris (CMS/HCC) High risk medication use Expected: 11/15/2024 (Approximate), Expires: 11/15/2025 [facility] Comment on above: Expected: 11/15/2024 (Approximate), Expires: 11/15/2025 Start: 11-15-2024 End: 11-15-2025 Hepatitis C virus Ab [Presence] in Serum or Plasma by Immunoassay Hepatitis C antibody Lab Routine Psoriasis vulgaris (CMS/HCC) High risk medication use Expected: 11/15/2024 (Approximate), Expires: 11/15/2025 [facility] Comment on above: Expected: 11/15/2024 (Approximate), Expires: 11/15/2025 Start: 11-15-2024 End: 11-15-2025 HIV 1 RNA,QL REAL TIME PCR HIV 1 RNA,QL REAL TIME PCR Lab Routine Psoriasis vulgaris (CMS/HCC) High risk medication use Expected: 11/15/2024 (Approximate), Expires: 11/15/2025 [facility] Comment on above: Expected: 11/15/2024 (Approximate), Expires: 11/15/2025 Start: 11-15-2024 End: 11-15-2025 QUANTIFERON TB GOLD [facility] Work Phone: Comment on above: Expected: 11/15/2024 (Approximate), Expires: 11/15/2025 Start: 11-15-2024 End: 11-15-2024 Patient encounter procedure [facility] Comment on above: Arrived Start: 09-15-2024 End: 09-15-2024 Patient encounter procedure 09/15/2024 8:40 AM EST Office Visit [facility] [address] [place] [address] Annette Baez PA [address] [place] [address] Arrived [facility] Comment on above: Arrived Start: 02-18-2024 End: 02-18-2024 Patient encounter procedure 02/18/2024 3:00 PM EDT Office Visit [facility] [address] [place] [address] Kristen Beard, DO [address] [facility] [address] [place], [place] [id number] [facility] Start: 12-11-2023 End: 12-11-2023 Patient encounter procedure 12/11/2023 9:00 AM EST Office Visit [facility] [address] [place] [address] Kristen Beard, DO [address] [place], [place] [id number] Irregular periods/menstrual cycles; Crampy pain associated with menses [facility] Comment on above: Irregular periods/me nstrual cycles; Crampy pain associated with menses Payers Date Payer Category Payer [facility] [employer]BS [id number] 2023 Unknown BCBS BCBS [id number] [id number] 2023-Present [phone] [address] [place] [address] [id number] 2023 Unknown [id number] 2018 Private Health Insurance 1997 Unknown [id number] 1997 Unknown [id number] 593 1997 Unknown [id number] 593 1997 Unknown [id number] 593 1997 Unknown [id number] [id number] 593 1997 Unknown [id number]. 1259 1997 Unknown [id number] [id number]. 1259 1997 Unknown [id number]. 1259 1997 Unknown [id number] 1259 1959 Self-pay [id number] 1959 Unknown [id number] Social History Date Type Detail Facility Start: 12-10-2023 End: 11-15-2024 Tobacco smoking status NHIS Tobacco smoking consumption unknown [facility] Start: 12-10-2023 End: 11-15-2024 Alcohol intake Ex-drinker (finding) [facility] Start: 12-10-2023 Tobacco Comment * current smok er frequency unknown [facility] Start: 12-10-2023 Alcohol Comment [facility] quit [facility] Start: 1995 Sex Assigned At Not on file [facility] Gender identity Not [facility] file [facility] History of Present illness Narrative 11-15-2024 JACKSON Sargent - 11/15/2024 8:30 AM EST Note Date & Type Note Facility 11-15-2024 History of Presen t illness Narrative Images from the original note were not included. Subjective Maria C Flores is a 29 y.o. female who presents for the following: Psoriasis biologic follow up Location: Bilateral knees and elbows Duration: Years Associated Factors: getting more tender and itchy Initial BSA: 10%, sPGA 3 Joint pain present: No History of Depression: Yes, currently takes Celexa Treatments tried: TAC Changes made to treatment at last visit: Yes Current treatment: Otezla 30 mg BID(samples given last appointment), TAC 0.1% BID prn--pt states she just finished samples and will wait for Tremfya injection training Months of current treatment: 2 Last TB test: 2019 Patient has not noticed improvement in scaling since starting current treatment. Established patient Follow up Diagnosis: Acne Location: face Last visit: 2 months ago Symptoms: still flared Status: no change Current treatment: Clindamycin lotion qAM, Tretinoin 0.025% nightly--per patient scripts were too expensive and did not pick them up; pt states she will try a more natural route All pertinent medical history, medications, and allergies were reviewed. General Exam: alert, oriented to person, place, and time, normal affect, well appearing Accompanied by spouse A focused exam completed based on patient reported problems, see below: 1. Psoriasis vulgaris (CMS/HCC) Left Elbow - Posterior, Left Knee - Anterior, Right Elbow - Posterior, Right Knee - Anterior Well-marginated erythematous papules/plaques with silvery scale. Flaring today BSA 10% %. sPGA 3 The patient was informed that psoriasis is a chronic condition that can be controlled but not cured. Patient has been on Otezla in the past and received samples for 4 weeks from our office. She improved but never cleared, and had significant GI upset. Lower extremities are very flared and bothersome today. Patient also has ear involvement that is not clear with use of TAC 0.1%. Discontinue Otezla at this point. Continue using TAC 0.1% bid when flared for stubborn areas, refills given today. At this point, patient is candidate for injectable biologic medication as penitentiary use of topical steroids in contraindicated. Discussed starting Tremfya. Patient denies history of CHF, IBD, or MS. Reviewed side effects with patient including increased risk of infections and injection site reactions. Recommended holding medication dose if patient has an active infection and can resume once cleared. Dosing would include one 100 mg injection at week one, repeat 100 mg injection at week 4 and then one 100 mg injection every 8 weeks after. Related Procedures QUANTIFERON TB GOLD CBC and differential AST ALT Hepatitis B surface antigen Hepatitis C antibody HIV 1 RNA,QL REAL TIME PCR QUANTIFERON TB GOLD Related Medications triamcinolone (Kenalog) 0.1 % cream Apply topically 2 (two) times a day as needed for rash 2. High risk medication use Related Procedures CBC and differential AST ALT Hepatitis B surface antigen Hepatitis C antibody HIV 1 RNA,QL REAL TIME PCR QUANTIFERON TB GOLD 3. Acne vulgaris Head - Anterior (Face) Scattered comedones and inflammatory pustules. Flaring today Patient was counseled that this condition is chronic and can be controlled, but not cured. The patient and/or parent were counseled that it may take up to 2-3 months to notice significant improvement of the acne. Non comedogenic skin care was discussed. Patient declines treatment at this time. Would like to try other natural remedies. Related Medications clindamycin (Cleocin T) 1 % lotion Apply thin layer to face, once daily in the morning, 30 day supply tretinoin (Retin-A) 0.025 % cream Apply topically at bedtime Apply thin layer to face at bedtime Next Visit: prn (injection training)//4 months (psoriasis follow up) documented in this encounter [facility] History of Present illness Narrative 09-15-2024 JACKSON Sargent - 09/15/2024 8:40 AM EST Note Date & Type Note Facility 09-15-2024 History of Presen t illness Narrative Images from the original note were not included. Subjective Maria C Flores is a 29 y.o. female who presents for the following: Dry skin. Location: Bilateral knees Duration: Years Associated Factors: itchy, scaly Joint pain present: No History of Depression: Yes-currently takes Celexa Treatments tried: triamcinolone Current treatment: nothing currently- has been on Otezla which worked great but patient was having issues getting covered through insurance Months of current treatment: Last TB test: 2019 Patient has noticed improvement in scaling since starting current treatment. New patient All pertinent medical history, medications, and allergies were reviewed. General Exam: alert, oriented to person, place, and time, normal affect, well appearing Unaccompanied A focused exam completed based on patient reported problems, see below: 1. Psoriasis vulgaris (CMS/HCC) Left Knee - Anterior, Right Knee - Anterior Well-marginated erythematous papules/plaques with silvery scale. Flaring today BSA 10%. sPGA 3 The patient was informed that psoriasis is a chronic condition that can be controlled but not cured. Patient was clear on Otezla before insurance stopped covering it for her. Today, she is flaring on knees, elbows and scalp. Start Otezla samples given today for 4 week supply. Instructed to contact office if psoriasis worsens or fails to improve despite treatment. Patient aware that our PA nurse will work with insurance to see options for coverage. Dose will be 30 mg twice daily. Discussed most common side effects including GI upset and diarrhea. Continue using TAC 0.1% bid when flared for stubborn areas, refills given today. Follow up in 2 months. Related Medications triamcinolone (Kenalog) 0.1 % cream Apply topically 2 (two) times a day as needed for rash 2. Acne vulgaris Head - Anterior (Face) Scattered comedones and inflammatory pustules. Flaring today Patient was counseled that this condition is chronic and can be controlled, but not cured. The patient and/or parent were counseled that it may take up to 2-3 months to notice significant improvement of the acne. Non comedogenic skin care was discussed. Continue using OTC Cetaphil wash and moisturizer. Start Clindamycin lotion qam and Tretinoin 0.025% at bedtime. Start by using a pea size amount of tretinoin every other night working up to using every night. Follow up in 2 months. Avoid while on this medication, pt denies current /plans to become . Related Medications clindamycin (Cleocin T) 1 % lotion Apply thin layer to face, once daily in the morning, 30 day supply tretinoin (Retin-A) 0.025 % cream Apply topically at bedtime Apply thin layer to face at bedtime Next Visit: 2 months documented in this encounter [facility] Evaluation note Note Date & Type Note Facility Evaluation note Diagnosis Psoriasis vulgaris (CMS/HCC) Other psoriasis Acne vulgaris Other acne documented in this encounter [facility] Evaluation note Note Date & Type Note Facility Evaluation note Diagnosis Psoriasis vulgaris (CMS/HCC)- Primary Other psoriasis High risk medication use Acne vulgaris Other acne documented in this encounter [facility] Healthcare Summary Purpose Family History No Family History Records FoundNo Family History Records FoundNo Family History Records Found Advance Directives No Advanced Directives Records FoundNo Advanced Directives Records FoundNo Advanced Directives Records Found Additional Source Comments INFORMATION SOURCE (unrecogn ized section and content) DATE CREATED AUTHOR [facility] DATE CREATED AUTHOR AUTHOR'S ORGANIZ ATION 02/28/2023 [facility] DATE CREATED AUTHOR AUTHOR'S ORGANIZ ATION 11/16/2024 [facility] Care Teams (unrecognized sec tion and content) Agriculture Scientist Relationship Specialty Start Date End Date Saji Mays MD [address] [facility] [place] [address] PCP - General Family Medicine 12/11/23 Agriculture Scientist Relationship Specialty Start Date End Date Saji Mays MD [address] [facility] [place] [address] PCP - General Family Medicine 12/11/23 Agriculture Scientist Relationship Specialty Start Date End Date Saji Mays MD [address] [facility] [place] [address] PCP - General Family Medicine 12/11/23 Agriculture Scientist Relationship Specialty Start Date End Date Saji Mays MD [address] [facility] [place] [address] PCP - General Family Medicine 12/11/23 Agriculture Scientist Relationship Specialty Start Date End Date Saji Mays MD [address] [facility] [place] [address] PCP - General Family Medicine 12/11/23 Reason for Visit (unrecogniz ed section and content) Reason Comments Dry skin Reason Comments Follow-up FOR RECORDS PERTAINING TO PATIENTS WHO ARE [...] BE BASED ON THE PRIMARY CLINICAL RECORDS. [facility]. provides no warranty or guarantee of the accuracy or completeness of information in this document.
[2024-11-23 17:04] LABS: Basophils Absolute Auto 0.1 10^3/uL (0.0-0.1); Basophils Percent Auto 0.6 % (0.2-2.0); Eosinophils Absolute Auto 0.6 10^3/uL (0.0-0.7); Eosinophils Percent Auto 6.4 % (0.9-7.0); Hemoglobin 12.9 g/dL (12.0-16.0); Immature Granulocytes Abs Auto 0.02 10^3/uL (0.00-0.03); Immature Granulocytes Pct Auto 0.2 % (0.0-0.5); Lymphocytes Absolute Auto 4.1 10^3/uL (1.2-3.8); Mean Corpuscular HGB Conc 33.9 g/dL (29.9-35.2); Mean Corpuscular Hemoglobin 28.7 pg (26.7-34.0); Mean Corpuscular Volume 84.4 fL (81.0-99.0); Mean Platelet Volume 8.9 fL (9.5-13.5); Monocytes Absolute Auto 0.7 10^3/uL (0.3-0.8); Monocytes Percent Auto 7.5 % (1.7-12.0); Neutrophils Absolute Auto 3.4 10^3/uL (1.4-6.5); Neutrophils Percent Auto 38.3 % (43.0-75.0); Platelet Count 339 10^3/uL (150-450); Red Cell Distribution Width 11.9 % (11.0-15.0); White Blood Count 8.8 10^3/uL (4.0-11.0)
[2024-11-23 17:22] LABS: Alanine Aminotransferase 18 U/L (14-59); Aspartate Amino Transferase 12 U/L (15-37)
[2024-11-25 05:07] LABS: HBsAg Screen Negative (Negative); HCV Antibody Non Reactive (Non Reactive); HIV Ab/p24 Ag Screen Non Reactive (Non Reactive)
[2024-11-26 10:07] LABS: QuantiFERON-TB Gold Plus Negative (Negative)
== END 2024-11-23 16:38 | disposition home or self-care (01) ==
PROVIDERS: PCP Family Medicine; Visit Provider Student in an Organized Health Care Education/Training Program
DX: L40.0 Psoriasis vulgaris (principal); Z79.899 Other long term (current) drug therapy
CPT/HCPCS: 36415; 84450; 84460; 85025; 86480; 86803; 87340; 87389

== ENCOUNTER 2025-02-28 20:17 | Outpatient (REF) | payer BC, SELFPAY ==
[2025-03-03 16:09] LABS: Age Gdln ACOG Testing Note (.); IGP, rfx Aptima HPV ASCU Note (.)
== END 2025-02-28 20:18 | disposition home or self-care (01) ==
LOC: LAB 20:17
PROVIDERS: PCP Family Medicine; Visit Provider Obstetrics & Gynecology
DX: Z01.419 Encounter for gynecological examination (general) (routine) without abnormal findings (principal)
CPT/HCPCS: 88175

== ENCOUNTER 2025-10-03 18:13 | Emergency (ER) | payer BC, SELFPAY ==
[2025-10-03] VITALS (10 sets, daily range): BP systolic 140; BP diastolic 80–88; PULSE 85–234; TEMP 36.8; O2SAT 95–100; BMI 33.1
--- NOTE | 2025-10-03 18:28 | ECG_ITS ---
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 Measurements Intervals [place] Rate: 225 P: 55 ND: 166 QRS: 67 QRSD: 80 T: 25 QT: 266 QTc: 370 Interpretive Statements SUPRAVENTRICULAR TACHYCARDIA [address] depression, possible subendocardial injury 4564 Twave abnormality, possible lateral ischemia 9150 abnormal ECG No previous ECG available for comparison Electronically Signed On 10-04-2025 19:59:30 EST by ELIU YANG M.D.
--- NOTE | 2025-10-03 18:28 | ECG_ITS ---
[facility] Test Date: 2025-10-03 Pat Name: TANIYA QUIGLEY Department: Room: - Gender: Female Activity Manager: : 1995 Requested By: [id number] Order Number: [id number] Reading MD: ELIU YANG M.D. Measurements Intervals [place] Rate: 99 P: 63 HI: 138 QRS: 60 QRSD: 82 T: 50 QT: 318 QTc: 375 Interpretive Statements 1100 Sinus rhythm 9110 normal ECG Compared to ECG 10/03/2025 18:21:16 Supraventricular tachycardia no longer present ST (T wave) deviation no longer present Possible ischemia no longer present Electronically Signed On 10-04-2025 19:59:53 EST by ELIU YANG M.D.
[2025-10-03 18:34] LABS: Hematocrit 42.9 % (36.0-48.0); Hemoglobin 14.5 g/dL (12.0-16.0); Immature Granulocytes Abs Auto 0.03 10^3/uL (0.00-0.03); Immature Granulocytes Pct Auto 0.2 % (0.0-0.5); Lymphocytes Absolute Auto 4.8 10^3/uL (1.2-3.8); Mean Corpuscular HGB Conc 33.8 g/dL (29.9-35.2); Mean Corpuscular Hemoglobin 29.2 pg (26.7-34.0); Mean Corpuscular Volume 86.3 fL (81.0-99.0); Platelet Count 359 10^3/uL (150-450); Red Blood Count 4.97 10^6/uL (4.20-5.40); White Blood Count 13.7 10^3/uL (4.0-11.0)
[2025-10-03] MEDS: 0.9 % SODIUM CHLORIDE 1,000 ML 1000 ML IV (18:37)
[2025-10-03 18:50] LABS: Alanine Aminotransferase 33 U/L (14-59); Albumin Globulin Ratio 1.1; Albumin Level 3.8 g/dL (3.4-5.0); Alkaline Phosphatase 90 U/L (46-116); Anion Gap 18.6; Aspartate Amino Transferase 30 U/L (15-37); Blood Urea Nitrogen 11.0 mg/dL (7.0-18.0); Calcium 8.9 mg/dL (8.5-10.1); Carbon Dioxide 22.8 mmol/L (21.0-32.0); Chloride 102 mmol/L (98-107); Estimated GFR (African America >60 (>=60 mL/min/1.73m^2); Estimated GFR (Non-African Ame >60 (>=60 mL/min/1.73m^2); Globulin 3.5 g/dL; Glucose 149 mg/dL (74-106); Magnesium 1.7 mg/dL (1.8-2.4); Potassium 3.4 mmol/L (3.5-5.1); Sodium 140 mmol/L (136-145); Total Protein 7.3 g/dL (6.4-8.2)
--- NOTE | 2025-10-03 18:56 | ED.ARRPALP1 ---
HPI - Arrhythmia/Palpitations General Chief Complaint: Arrhythmia/Palpitations Stated Complaint: Racing heart, SOB Time Seen by Provider: 10/03/25 18:27 Source: patient Limitations: no limitations History of Present Illness HPI narrative: The patient is a 30-year-old female presented to the ER with a sense of dizziness was found to be in SVT on arrival she did not have any chest pain, no nausea no vomiting no other complaints Related Data Allergies Allergy/AdvReac Type Severity Reaction Status Date / Time sulfamethoxazole (From Allergy Unknown Unknown Verified 10/03/25 18:18 Bactrim) trimethoprim (From Bactrim) Allergy Unknown Unknown Verified 10/03/25 18:18 Review of Systems ROS Status of ROS 10 or more systems reviewed and unremarkable except as noted in history and below PFSH PFSH Social History Little interest or pleasure in doing things: not at all Feeling down, depressed, or hopeless: not at all Exam Narrative Exam Narrative: Nurses notes and vital signs reviewed and patient is not hypoxic. General: Well-appearing and in no apparent distress. Skin: Warm, dry, no pallor noted. No rash. Head: Normocephalic, atraumatic. Neck: Supple, non-tender. Eye: Pupils are equal, round and EOMI. No scleral icterus. Ears, Nose, Mouth, and Throat: TM are clear, no nasal mucosal hypertrophy. Oral mucosa is moist, no posterior oropharynx erythema, uvula is mid-line Cardiovascular: Regular Rate and Rhythm without murmur, gallop or rub. Respiratory: No accessory muscle use or respiratory distress. Lungs are clear to auscultation, no wheezing, rales or rhonchi Chest Wall: no tenderness Back: No midline thoracic or lumbar vertebral tenderness. No CVA tenderness Musculoskeletal: normal ROM, no calf or popliteal tenderness, no lower extremity edema/swelling GI: Abdomen is soft, non-distended. Normal bowel sounds. No masses appreciated. No tenderness to palpation. No rebound, guarding, or rigidity noted. Neurological: A&O x4. No cranial nerve dysfunction observed. No truncal ataxia. Moves all extremities. Sensation intact. Psychiatric: Cooperative and interactive. Normal mood and affect. Constitutional Vital Signs, click to edit/add: Last Vital Signs Temp 98.2 F 10/03/25 18:18 Pulse 100 H 10/03/25 18:30 Resp 21 H 10/03/25 18:30 BP 140/88 10/03/25 18:22 Pulse Ox 95 10/03/25 18:30 O2 Del Method Room Air 10/03/25 18:18 Course Vital Signs Vital signs: Vital Signs Temperature 98.2 F 10/03/25 18:18 Pulse Rate 233 H 10/03/25 18:18 Respiratory Rate 22 H 10/03/25 18:18 Blood Pressure 140/80 10/03/25 18:18 Pulse Oximetry 100 10/03/25 18:18 Oxygen Delivery Method Room Air 10/03/25 18:18 Temperature 98.2 F 10/03/25 18:18 Pulse Rate 100 H 10/03/25 18:30 Respiratory Rate 21 H 10/03/25 18:30 Blood Pressure 140/88 10/03/25 18:22 Pulse Oximetry 95 10/03/25 18:30 Oxygen Delivery Method Room Air 10/03/25 18:18 MDM - Arrhythmia/Palpitations MDM Narrative Medical decision making narrative: On arrival the patient was found to be in SVT with a heart rate of [address] ovation CBC and chemistry ordered and awaiting the result Troponin pending as well Patient care will be transferred to Dr. Donis Lab Data Labs: Lab Results 10/03/25 Range/Units 18:23 WBC 13.7 H (4.0-11.0) 10^3/uL RBC 4.97 (4.20-5.40) 10^6/uL Hgb 14.5 (12.0-16.0) g/dL Hct 42.9 (36.0-48.0) % MCV 86.3 (81.0-99.0) fL MCH 29.2 (26.7-34.0) pg MCHC 33.8 (29.9-35.2) g/dL RDW 12.5 (11.0-15.0) % Plt Count 359 (150-450) 10^3/uL MPV 8.8 L (9.5-13.5) fL Neut % (Auto) 56.4 (43.0-75.0) % Lymph % (Auto) 34.9 (20.5-60.0) % [place] % (Auto) 5.1 (1.7-12.0) % Eos % (Auto) 2.8 (0.9-7.0) % Baso % (Auto) 0.6 (0.2-2.0) % Neut # (Auto) 7.7 H (1.4-6.5) 10^3/uL Lymph # (Auto) 4.8 H (1.2-3.8) 10^3/uL [place] # (Auto) 0.7 (0.3-0.8) 10^3/uL Eos # (Auto) 0.4 (0.0-0.7) 10^3/uL Baso # (Auto) 0.1 (0.0-0.1) 10^3/uL Abs Immat Gran (auto) 0.03 (0.00-0.03) 10^3/uL Imm/Tot Granulo (auto) 0.2 (0.0-0.5) % Sodium 140 (136-145) mmol/L Potassium 3.4 L (3.5-5.1) mmol/L Chloride 102 (98-107) mmol/L Carbon Dioxide 22.8 (21.0-32.0) mmol/L Anion Gap 18.6 BUN 11.0 (7.0-18.0) mg/dL Creatinine 0.81 (0.55-1.02) mg/dL Est GFR ( Amer) >60 (>=60 mL/min/1.73m^2) Est GFR (Non-Af Amer) >60 (>=60 mL/min/1.73m^2) BUN/Creatinine Ratio 13.6 Glucose 149 H (74-106) mg/dL Calcium 8.9 (8.5-10.1) mg/dL Magnesium 1.7 L (1.8-2.4) mg/dL Total Bilirubin 0.4 (0.2-1.0) mg/dL AST 30 (15-37) U/L ALT 33 (14-59) U/L Alkaline Phosphatase 90 (46-116) U/L Troponin I High Sens 5.9 (4.0-51.3) pg/mL Total Protein 7.3 (6.4-8.2) g/dL Albumin 3.8 (3.4-5.0) g/dL Globulin 3.5 g/dL Albumin/Globulin Ratio 1.1 Discharge Plan Discharge Patient Disposition: Still a Patient
--- OUTSIDE RECORDS SUMMARY | 2025-10-03 18:56 | XMS_ITS | CCD ---
Author Organization [facility] Care Team Providers [employer] Program Director Name Role Phone Chris Zazueta Attending Unavailable Saji [phone] UNKNOWN Primary Care Unavailable DENICE, DR VIVIAN Welch Consulting Unavailabl e REINECK, DR VIVIAN Welch Admitting Unavailabl e HOY ., DR LENNON Primary Care Unavailable REINECK, DR VIVIAN Welch Attending Unavailabl e GRECHNY ., JACKSON JAY Consulting Unavailabl e HOY ., DR LENNON Attending Unavailable HOY ., DR LENNON Primary Care Unavailable HOY ., DR LENNON Admitting Unavailable OSVALDO SIDDIQI Attending Unavailable DEVANG, OSVALDO Consulting Unavailable OSVALDO SIDDIQI Admitting Unavailable HOY ., DR LENNON Primary Care Unavailable HOY ., DR LENNON Primary Care Unavailable MARKER ., DR BROOKE Attending Unavailable MARKER ., DR BROOKE Consulting Unavailable MARKER ., DR BROOKE Admitting Unavailable JAC HOGUE Consulting Unavailable Unavailable Primary Care Provider UnavailSaji Caldera MD Primary Care Provider [phone] Saji Mays MD Primary Care Provider [phone] Saji Mays MD Primary Care Provider [id number] Saji Mays MD Primary Care Provider [id number] MICHELINE SOUZA Attending Unavailable KRISTEN BEARD Attending Unavailable NORTHEIM, ANNETTE Attending Unavailable NORTHEIM, ANNETTE Attending Unavailable NORTHEIM, ANNETTE Attending Unavailable NORTHEIM, ANNETTE Attending Unavailable NORTHEIM, ANNETTE Attending Unavailable NORTHEIM, ANNETTE Attending Unavailable Allergies Allergy ClassificationReported Allergen(s)Allergy TypeDate of OnsetReaction(s) Facility (3 sources)Sulfamethoxazole / Trimethoprim; Translations: [Bactrim]Drug Allergy 97-78-5094IgccczFirelands [facility] (20 sources)Sulfamethoxazole / TrimethoprimDrug Eicrjqi66-09-3681JdzwnvfPGKN Healthcare Medications Current Medications MedicationDrug Class(es)DatesSig (Normalized)Sig (Original)calcium citrate 950 mg oral tablet (13 sources)calcium citrate (Calcitrate) 950 (200 Ca) MG tablet Take 475 mg by mouth Daily Activecephalexin 500 mg oral capsule (1 source)Cephalosporin AntibacterialStart: 12-11-2023 End: 33-31-3130kiks 1 capsule by mouth in the morning, then take 1 capsule by mouth in the evening, then take 1 capsule by mouth at bedtimecephalexin (Keflex) 500 MG capsule Indications: Crampy pain associated with menses Take 1 capsule (500 mg) by mouth in the morning and 1 capsule (500 mg) in the evening and 1 capsule (500 mg) before bedtime. Do all this for 14 days. 102 capsule 0 12/11/2023 12/25/2023 ActiveCholecalciferol (Vitamin D3) 2400 UNIT/ML liquid (13 sources)Cholecalciferol (Vitamin D3) 2400 UNIT/ML liquid as directed Active citalopram 40 mg oral tablet (20 sources)Serotonin Reuptake InhibitorStart: 61-81-8484urxw 1 tablet by mouth once dailycitalopram (CeleXA) 40 MG tablet Take 40 mg by mouth Daily 02/21/2025 Active End: 53-95-5757mhhi 1 tablet by mouth once dailycitalopram (CeleXA) 40 MG tablet TAKE 1 TABLET BY MOUTH ONCE DAILY for 90 days 11/15/2024 DiscontinuedMAGNESIUM 4 MUSCLES (13 sources)MAGNESIUM 4 MUSCLES Magnesium Agkcjs30 hr metFORMIN hydrochloride 500 mg extended release oral tablet (4 sources)BiguanideStart: 12-11-2023 End: 32-19-2898vlxj 1 tablet by mouth every twenty-four hours at mealtime metFORMIN XR (Glucophage-XR) 500 MG 24 hr tablet Indications: Irregular periods/menstrual cycles Take 1 tablet (500 mg) by mouth in the evening. Take with meals Do not crush, chew, or split. 30 tablet 11 12/11/2023 09/15/2024 Discontinuednystatin 100 unt/mg topical powder (4 sources)Polyene AntifungalStart: 01-13-2023 End: 34-69-0269awfbadif (Mycostatin) 843290 UNIT/GM powder Apply a small amount to skin twice a day 01/13/2023 09/15/2024 Discontinuedondansetron 4 mg oral tablet (20 sources)Serotonin-3 Receptor AntagonistStart: 31-82-1681uflp 1 tablet by mouth every twenty-four hours as neededondansetron (Zofran) 4 MG tablet Take 4 mg by mouth Daily as needed 04/03/2023 Activephentermine hydrochloride 37.5 mg oral tablet (1 source)Sympathomimetic Amine AnorecticStart: 94-83-8614xxie 1 tablet by mouth before mealtimephentermine (Adipex-P) 37.5 MG tablet Take 37.5 mg by mouth in the morning. Take before meals. 07/06/2025 ActivepredniSONE 20 mg oral tablet (4 sources)Start: 01-13-2023 End: 41-98-3884dpcn 3 tablets by mouth in the morningpredniSONE (Deltasone) 20 MG tablet Take 60 mg by mouth in the morning. 01/13/2023 09/15/2024 Discontinued Vit-Fe Fumarate-FA ( Vitamin) 27-0.8 MG tablet (4 sources) End: 36-37-7978Wiymjexo Vit-Fe Fumarate-FA ( Vitamin) 27-0.8 MG tablet 1 (one) time each day at the same time 09/15/2024 DiscontinuedPrenatal Vit-Fe Fumarate-FA ( Vitamin) 27-0.8 MG tablet 1 (one) time each day at the same time ActivePrenatal Vit-Fe Fumarate-FA ( Vitamin) 27-0.8 MG tablet 1 (one) time each day at the same time 0 Activezinc gluconate 77 mg oral lozenge (13 sources)Zinc 10 MG lozenge Zinc Active Completed/Discontinued Medications MedicationDrug Class(es)DatesSig (Normalized)Sig (Original)clindamycin 10 mg/ml topical lotion (10 sources)Lincosamide AntibacterialStart: 09-15-2024 End: 05-93-8410upvlcgeohcd (Cleocin T) 1 % lotion Indications: Acne vulgaris Apply thin layer to face, once daily in the morning, 30 day supply 60 mL 11 09/15/2024 02/28/2025 Discontinued1 ml guselkumab 100 mg/ml prefilled syringe (20 sources)Interleukin-23 AntagonistStart: 09-01-2025 End: 93-41-0851viwuqlrbox (Tremfya) injection 100 mgStart: 09-01-2025 End: 01-73-2509252 mg, Subcutaneous, Once, On Radha 09/01/25 at 1530, For 1 dose, Administer into front of thighs, back of upper arm, or lower abdomen (at least 2 inches from navel); avoid tender, bruised, red, hard, thick, or psoriatic skin. Rotate injection sites. Remove from fridge and allow to sit at room temperature in original carton for 30 minutes prior to administering. Do not shake.Start: 07-07-2025 End: 92-01-3902Kxgrbldlpn solution auto-injector 100 mgStart: 07-07-2025 End: 29-43-7826uuoaau 100 mg by subcutaneous injection ftgg556 mg, Subcutaneous, Once, On Radha 07/07/25 at 1600, For 1 doseStart: 07-07-2025 End: 91-26-1319Dpcswaeibb solution auto-injector 100 mgStart: 07-07-2025 End: 16-62-7878mnzqxa 100 mg by subcutaneous injection irdw465 mg, Subcutaneous, Once, On Radha 07/07/25 at 1600, For 1 doseStart: 49-25-5381vhkzuzrvxt (Tremfya) injection 100 mgStart: 03-10-2025 End: 93-12-2054ripeddtmsg (Tremfya) injection 100 mgStart: 03-10-2025 End: 71-55-3577zrdjilbhod (Tremfya) injection 100 mgStart: 03-10-2025 End: 31-40-8062774 mg, Subcutaneous, Once, On Radha 03/10/25 at 1615, For 1 dose, Administer into front of thighs, back of upper arm, or lower abdomen (at least 2 inches from navel); avoid tender, bruised, red, hard, thick, or psoriatic skin. Rotate injection sites. Remove from fridge and allow to sit at room temperature in original carton for 30 minutes prior to administering. Do not shake.Start: 03-10-2025 End: 49-27-4097688 mg, Subcutaneous, Once, On Radha 03/10/25 at 1615, For 1 dose, Administer into front of thighs, back of upper arm, or lower abdomen (at least 2 inches from navel); avoid tender, bruised, red, hard, thick, or psoriatic skin. Rotate injection sites. Remove from fridge and allow to sit at room temperature in original carton for 30 minutes prior to administering. Do not shake.Start: 02-07-2025 End: 05-43-8525Zuxqnomblt solution auto-injector 100 mgStart: 02-07-2025 End: 78-52-9570kopirw 100 mg by subcutaneous injection qtto581 mg, Subcutaneous, Once, On 02/07/25 at 1600, For 1 doseStart: 02-01-2025 End: 40-92-0043Gztbrboqlf (Tremfya) 100 MG/ML solution auto-injector Indications: Plaque Psoriasis Inject 100 mg under the skin See administration instructions Inject 100 mg (contents of one pen) under the skin at week 0 and week 4. 2 mL 02/01/2025 03/02/2025 ActiveStart: 32-24-4405Iztjrboyqv (Tremfya) 100 MG/ML solution auto-injector Indications: Plaque Psoriasis Inject 100 mg un devi the skin every 8 (eight) weeks 1 mL 01/31/2025 Activeomeprazole 20 mg delayed release oral capsule (12 sources)Proton Pump Inhibitor End: 83-60-6483dqtgyvrpql (PriLOSEC) [address] capsule 02/28/2025 Discontinued tretinoin 0.25 mg/ml topical cream (10 sources)RetinoidStart: 09-15-2024 End: 31-84-5750iqtlirtiu (Retin-A) 0.025 % cream Indications: Acne vulgaris Apply topically at bedtime Apply thin layer to face at bedtime 45 g 09/15/2024 02/28/2025 Discontinuedtriamcinolone acetonide 1 mg/ml topical cream (10 sources)CorticosteroidStart: 09-15-2024 End: 25-45-7705imoqbkjbcqisz (Kenalog) 0.1 % cream Indications: Psoriasis vulgaris (CMS/HCC) Apply topically 2 (two) times a day as needed for rash 240 g 11 09/15/2024 02/28/2025 Discontinued Problems Active Problems Problem ClassificationProblemDateDocumented DateEpisodic/ChronicOther aftercare (10 sources)Taking high risk medication; Translations: [Other meterman (current) drug therapy]55-21-7575CyqpmvuzJjuvq female genital disorders (1 source)Abnormal uterine and vaginal bleeding, unspecified; Translations: [ABNORMAL UTERINE VAGINAL BLEED UNS]Onset: 08-81-2500EmefdkdFhogj inflammatory condition of skin (12 sources)Psoriasis vulgaris; Translations: [Psoriasis vulgaris]09-15-2024 ChronicOther skin disorders (4 sources)Acne vulgaris; Translations: [Acne vulgaris]30-40-6983Ktmijbcv Substance-related disorders (1 source)Nicotine dependence, cigarettes, uncomplicated; Translations: [NICOTINE DEPEND CIGARETTES UNCOMP]Onset: 31-81-8578QikzvycTdkbpibcvkob (3 sources)COUGH, UNSPECIFIED; Translations: [COUGH, UNSPECIFIED]Onset: 54-07-0108Lwzroonyybfq (1 source)UNVACCINATED FOR COVID-19; Translations: [UNVACCINATED FOR COVID-19] Onset: 91-52-5058Pobdngubrcdl (4 sources)CONTACT W/AND (SUSP) EXPOS COVID-19; Translations: [CONTACT W/AND (SUSP) EXPOS COVID-19]Onset: 10-25-2022 Past or Other Problems Problem ClassificationProblemDateDocumented DateEpisodic/ChronicOther aftercare (1 source)Other meterman (current) drug therapy; Translations: [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]Onset: 22-39-6349RfjrgtflWhvuf upper respiratory disease (1 source)Nasal congestion; Translations: [NASAL CONGESTION]Onset: 10-25-2022 EpisodicOther upper respiratory infections (1 source)Acute upper respiratory infection, unspecified; Translations: [ACUTE UP RESPIRATORY INFECTION UNS]Onset: 00-42-0164YsyjzbppPlvyozgayqki (1 source)COUGH, UNSPECIFIED; Translations: [COUGH, UNSPECIFIED]Onset: 49-88-7727Dbgturdjjjyr (1 source)CONTACT W/AND (SUSP) EXPOS COVID-19; Translations: [CONTACT W/AND (SUSP) EXPOS COVID-19]Onset: 69-37-4941Morpobd tract infections (1 source)Urinary tract infection, site not specified; Translations: [UTI SITE NOT SPECIFIED]Onset: 06-02-4432Ndsaabch Results Test NameValueInterpretationReference RangeFacilityIGP,APTIMA HPV,AGE GDLNon 24-58-8697QGJ GDLN ACOG TESTINGNote.[facility] HealthcareComment on above:TESTS RESULT FLAG UNITS REF RANGE LAB Clinician Provided Cytology Information Source.............Cervix;Endocervix No. of containers..01 ThinPrep Vial Age Algo ACOG Marcia... FLAG LEGEND: L-Low Normal,H-High Normal,LL-Alert Low,HH-Alert High <-Panic Low,>-Panic High,A-Abnormal,AA-Critical Abnormal Performed at: 01 =[facility], [place] [address] Priscila Majano MD, IGP, RFX APTIMA HPV ASCUNote.[facility] HealthcareComment on above:TESTS RESULT FLAG UNITS REF RANGE LAB DIAGNOSIS: 02 NEGATIVE FOR INTRAEPITHELIAL LESION OR MALIGNANCY. Specimen adequacy: 02 Satisfactory for evaluation. Endocervical and/or squamous metaplastic cells (endocervical component) are present. Performed by: Vanita Zelaya Claim Representative ([facility]) . 02 Note: Note 02 The Pap smear is a screening test designed to aid in the detection of premalignant and malignant conditions of the uterine cervix. It is not a diagnostic procedure and should not be used as the sole means of detecting cervical cancer. Both false-positive and false-negative reports do occur. Test Methodology: Note 02 This liquid based ThinPrep(R) pap test was screened with the use of an image guided system. . 02 The HPV DNA reflex criteria were not met with this specimen result therefore, no HPV testing was performed. FLAG LEGEND: L-Low Normal,H-High Normal,LL-Alert Low,HH-Alert High <-Panic Low,>-Panic High,A-Abnormal,AA-Critical Abnormal Performed at: [address] [place] [address] Priscila Majano MD, Performed at: =G - [facility] [address], [place] [id number] Neurology Director: Priscila Majano MD, Phone: [phone] Performed at: - [facility] [id number] Neurology Director: Priscila Majano MD, Phone: [phone] BRUSH-SPATULA CERVIX ENDOCERVIX CLINISYNCNOUT HealthcareCytology Cervical or vaginal smear or scraping studyon 89-74-2760EVPQSullivan County Memorial HospitalALL CBC WITH AUTO DIFFon 30-88-1838FRTVSBTFO ABSOLUTE AUTO0.0NOHarry S. Truman Memorial Veterans' HospitalBasophils/100 WBC (Bld)0.5 %0.2 - 2.0 %[facility] Eosinophils/100 WBC (Bld)4.9 %0.9 - 7.0 %[facility] HospitalErythrocyte distribution width (RBC) [Ratio]12.4 %11.0 - 15.0 %[facility] HospitalHematocrit (Bld) [Volume fraction]38.0 %36.0 - 48.0 %[facility] HospitalHemoglobin (Bld) [Mass/Vol]12.6 g/dL 12.0 - 16.0 g/dLSullivan County Memorial HospitalIMMATURE GRANULOCYTES ABS AUTO0.01NOHarry S. [facility] Immature granulocytes/100 WBC (Bld)0.1 %0.0 - 0.5 %[facility] HospitalInterpretation and review of laboratory resultsAbnormalSullivan County Memorial HospitalLYMPHOCYTES ABSOLUTE AUTO3.1NOMS [facility] HospitalLymphocytes/100 WBC (Bld)35.3 %20.5 - 60.0 %[facility] HospitalH (RBC) [Entitic mass]28.1 pg26.7 - 34.0 pgGeneral Leonard Wood Army Community HospitalHC (RBC) [Mass/Vol]33.2 g/dL29.9 - 35.2 g/dLSullivan County Memorial HospitalMCV (RBC) [Entitic vol]84.8 fL 81.0 - 99.0 fLSullivan County Memorial HospitalMONOCYTES ABSOLUTE AUTO0.6NOHarry [facility]. [facility] Monocytes/100 WBC (Bld)7.1 %1.7 - 12.0 %[facility] HospitalNEUTROPHILS ABSOLUTE AUTO 4.6NOHarry S. Truman Memorial Veterans' HospitalNeutrophils/100 WBC (Bld)52.1 %43.0 - 75.0 %[facility] Platelet mean volume (Bld) [Entitic vol]8.8 fLLow9.5 - 13.5 fLSullivan County Memorial HospitalTB EO #0.4NOMS [facility] HospitalTB [id number] Area Regional Medical Center RBC4.48NOMineral Area Regional Medical Center WBC 8.8NOHarry S. Truman Memorial Veterans' HospitalCLINISYNCNOMS HealthcareCULTURE URINEon 92-20-0440ATNGQCL URINECulture Observations: MODERATE GROWTH OF MIXED GENITAL RASHIDA. NO POTENTIAL PATHOGENS SEEN.NormalThe [facility] Methodist HospitalComment on above:Performed By: #### URCX #### [facility] [address] [address] [address] Crys Bishop URINE PROFILEon 62-55-3180Ybujzntxj Ql (U)NegativeNormal NEGATIVEHolzer Health SystemComment on above:Performed By: #### PREGU, UMICRO, ERUR #### [facility] [address] [address] [address] Crys Weathersarity (U)CLEARNormalCLEARHolzer Health SystemComment on above: Performed By: #### PREGU, UMICRO, ERUR #### [facility] [address] [address] [address] Crys Turner (U)LT. YELLOWNormalYELLOWHolzer Health SystemComment on above:Performed By: #### PREGU, UMICRO, ERUR #### [facility] [address] [address] [address] Crys CamachoKANE COUNTY HUMAN RESOURCE SSD micrscopic examination will be performed if indicated. NormalHolzer Health SystemComhills & dales general hospital on above:Performed By: #### PREGU, UMICRO, ERUR #### [facility] [address] [address] [address] Crys HutchinsonGlucose Ql (U)NegativeNormalNEGATIVEHolzer Health SystemComment on above:Performed By: #### PREGU, UMICRO, ERUR #### [facility] [address] [address] [address] Crys HutchinsonHemoglobin Ql (U)LARGEAbnormalNEGATIVETrinity Health System West Campus on above:Performed By: #### PREGU, UMICRO, ERUR #### [facility] [address] [address] [address] Crys HutchinsonKetones Ql (U)NegativeNormalNEGATIVEHolzer Health SystemComment on above:Performed By: #### PREGU, UMICRO, ERUR #### [facility] [address] [address] [address] Crys HutchinsonLEUKOCYTESTRACEAbnormalNEGATIVEThe [facility]de HospitalComment on above:Performed By: #### PREGU, UMICRO, ERUR #### [facility] [address] [address] [address] Crys Nava Ql (U)NegativeNormalNEGATIVEThe [facility] HospitalComment on above:Performed By: #### PREGU, UMICRO, ERUR #### [facility] [address] [address] [address] Crys HutchinsonpH (U)5.5 [pH]Normal5-9The [facility] HospitalComment on above: Performed By: #### PREGU, UMICRO, ERUR #### [facility] [address] [place] [address] Dr. Crys HutchinsonSPEC GRAVITY1.403Mabdnu2.005-<=1.025The [facility] HospitalComment on above:Performed By: #### PREGU UMICRO, ERUR #### [facility] [address] [place] [address] Dr. Crys Parekh PROTEINNegativeNormalNEGATIVE/ TRACEThe [facility] Comment on above:Performed By: #### PREGU, UMICRO, ERUR #### [facility] [address] [place] [address] Dr. Crys Chadwick MICRO INDINDICATEDNormTrumbull Memorial HospitalComment on above: Performed By: #### PREGU, UMICRO, ERUR #### [facility] [address] [place] [address] Dr. Crys Puentebilinogen Qn (U)0.2 {Ryann'U}/dLNormal0.2 - 1.0The [facility] HospitalComment on above:Performed By: #### PREGU, UMICRO, ERUR #### [facility] [address] [place] [address] Dr. Crys HutchinsonPREGNANCY URon 89-54-2465ISXEYYJWW, QUALNegativeNormalNEGATIVEThe [facility] HospitalComment on above:Performed By: #### PREGU, UMICRO, ERUR #### [facility] [address] [address] [address] Crys Huston MICROSCOPIC ONLYon 16-94-0554RFFYCAIFAQBPNGlezbpxmAOGA SEEN [facility] on above:Performed By: #### PREGU, UMICRO, ERUR #### [facility] [address] [address] [address] Crys Waite identified Cx Nom (U)INDICATEDNormalThe [facility] HospitalComhills & dales general hospital on above:Performed By: #### PREGU, UMICRO, ERUR #### [facility] [address] [address] [address] Crys GomesE SEENNormalNONE SEENCleveland Clinic Avon Hospital on above:Performed By: #### PREGU, UMICRO, ERUR #### [facility] [address] [address] [address] Crys Isbellystals LM Nom (Urine sed)NONE SEENNormalNONE SEENThe [facility] on above:Performed By: #### PREGU, UMICRO, ERUR #### [facility] [address] [address] [address] Spangler ChangEpithelial cells LM Ql (Urine sed)FEWAbnormalNONE SEEN /RAREThe [facility] on above:Performed By: #### PREGU, UMICRO, ERUR #### [facility] [address] [address] [address] Crys BoswellCOUSNONE SEENNormalNONE SEENCleveland Clinic [facility] Hospital on above:Performed By: #### PREGU, UMICRO, ERUR #### [facility] [address] [address] [address] Crys CamachoRtuylMQC34-82Bdhcwvdd9-4YefCleveland Clinic [facility] on above: Performed By: #### PREGU, UMICRO, ERUR #### [facility] [address] [address] [address] Crys ZamoraBC2-5AbnormalNONE SEENThe [facility] HospitalComment on above: Performed By: #### ADDIEURIDGE, ERUR #### [facility] [address] [address] [address] Crys HutchinsonXR CHEST 1 Von 70-13-3065EG CHEST 1 VEXAMINATION: XR CHEST 1 V HISTORY: Cough COMPARISON: None. TECHNIQUE: Portable chest FINDINGS: The lung parenchyma is free of consolidation or infiltrate. No pneumothorax or pleural effusion. The cardiac, mediastinal and hilar contours are normal. The visualized osseous structures exhibit no gross abnormality. IMPRESSION: Normal chest x-ray. Electronically authenticated by: JAC HOGUE Date: 2022-11-05 22:55NormHighland District Hospitale [facility] HospitalCovid-19 PCR (CVDTBH)on 81-41-4953LCGA-CoV-2 (COVID-19) RNA ALTAF+probe Ql (Unsp spec)Not detectedNormalNOT DETECTEDThe [facility] Comment on above:Result Comment: This test is not yet approved or cleared by the [place] FDA. When there are no FDA-approved or cleared tests available, and other criteria are met, FDA can make tests available under an emergency access mechanism called an Emergency Use Authorization (EUA). The EUA for this test is supported by the [place] of Health and Human Service's (HHS's) declaration that circumstances exist to justify the emergency use of in vitro diagnostics for the detection and/or diagnosis of the virus that causes COVID- 19. This EUA will remain in effect (meaning [...] of clinical signs and symptoms consistent with SARS-CoV-2.Performed By: #### CVDTBH #### [facility] [address] [address] [address] Crys HutchinsonGROUP A STREP CULTUREon 11-05-2022S. pyogenes Ag Ql (Unsp spec) Culture Observations: NEGATIVE FOR GROUP A STREPTOCOCCUS.NormalThe [facility] HospitalComment on above: Performed By: #### SSCRN, GRASTCX #### [facility] [address] [address] [address] Crys HutchinsonINFLHILARYZA A AND B AGon 76-89-2429JNWQQPFVW A AGNegativeNormal NEGATIVE SEE COMMENTThe [facility] HospitalComment on above:Performed By: #### INFLUAB #### [facility] [address] [place] [address] Dr. Crys HutchinsonINFLABY B AGNegativeNormalNEGATIVE SEE COMMENTThe [facility] HospitalComment on above:Performed By: #### INFLUAB #### [facility] [address] [place] [address] Dr. Crys HutchinsonSTREPT SCREENon [id number] SCREEN ANegativeNormalNEGATIVEThe [facility] HospitalComment on above:Performed By: #### SSCRTameka, GRASTCX #### [facility] [address] [place] [address] Dr. Crys HutchinsonCovid-19 PCR ([facility])on [id number]-CoV-2 (COVID-19) RNA ALTAF+probe Ql (Unsp spec)Not detectedNormalNOT DETECTEDThe [facility] Comment on above:Result Comment: This test is not yet approved or cleared by the [place] FDA. When there are no FDA-approved or cleared tests available, and other criteria are met, FDA can make tests available under an emergency access mechanism called an Emergency Use Authorization (EUA). The EUA for this test is supported by the [place] of Health and Human Service's (HHS's) declaration that circumstances exist to justify the emergency use of in vitro diagnostics for the detection and/or diagnosis of the virus that causes COVID- 19. This EUA will remain in effect (meaning [...] of clinical signs and symptoms consistent with SARS-CoV-2.Performed By: #### RIDGE CHRISTINE ERUR #### [facility] [address] [place] [address] Dr. Crys Gupta AND B AGon [id number] Health Lorain Hospital on above:Result Comment: Negative for Flu A protein angiten. Infection due to Flu A cannot be ruled out. FluA angiten in the sample may be below the detection limit of the test.Performed By: #### INFLUAB #### [facility] [address] [place] [address] Dr. Crys BearUBNEGHSOhio State Health System on above: Result Comment: Negative for Flu B protein antigen. Infection due to Flu B cannot be ruled out. FluB antigen in the sample may be below the detection limit of the test.Performed By: #### INFLUAB #### [facility] [address] [place] [address] Dr. Crys Gupta AGNegativeNormalNEGATIVE SEE COMMENTThe [facility] on above:Performed By: #### INFLUAB #### [facility] [address] [place] [address] Dr. Crys Meadows AGNegativeNormalNEGATIVE SEE COMMENTThe [facility] on above:Performed By: #### INFLUAB #### [facility] [address] [place] [address] Dr. Crys HutchinsonINTERNAL CONTROLSWithin Normal LimitsNormalWithin Normal Limits [facility] on above:Performed By: #### INFLUAB #### [facility] [address] [place] [address] Dr. Crys Hutchinson Vital Signs Date TimeVital SignValuePerforming HbyjzfcdsPqtyrevp61-40-3890 15:58-0400Body mass index (BMI) [Ratio]34.78 kg/d4Tiany Kisha DO Work Phone: [facility] HospitalVhksilazsw34-95-5267 15:58-0400Body dzpfex74.8 kg Kristen Kisha DO Work Phone: [facility] HospitalIpcjjnufjm22-09-4209 15:58-0400Diastolic blood ruyzokma11 mm[Hg]Kristen Kisha DO Work Phone: NOTS Yewoiokfad72-22-4744 15:58-0400Systolic blood mm[Hg]Kristen Kisha DO Work Phone: [facility] Encounters Encounter DateEncounter TypeCare ProviderFacilityStart: 09-01-2025 End: 22-50-9825Dsnfhx outpatient visit 5 minutesRylee Northeim PA Work Phone: [facility] DermatologyComment on above:Psoriasis vulgaris (Primary Dx); High risk medication useStart: 09-01-2025 End: 80-27-4077sueyxdwgvhJDRLJ NORTHEIMNot AvailableStart: 09-01-2025 End: 87-93-9514Vjwnbr flowsheetRylee Northeim PA Work Phone: [facility] DermatologyStart: 09-01-2025 End: 11-75-4893Rskcyz flowsheetRylee Northeim PA Work Phone: [facility] DermatologyStart: 07-07-2025 End: 40-62-2723Dmmshh outpatient visit 5 minutesRylee Northeim PA Work Phone: [facility]enzie DermatologyComment on above:Psoriasis vulgaris ; High risk medication useStart: 07-07-2025 End: 71-56-1523ilmombzpylYSBKE NORTHEIMNot AvailableStart: 05-05-2025 End: 49-04-3176Amhvyr outpatient visit 5 minutesRylee Northeim PA Work Phone: NOBO SWS DERMComment on above:Psoriasis vulgaris (Primary Dx); High risk medication useStart: 05-05-2025 End: 62-73-5174zfifqehxncSPFDA NORTHEIMNot AvailableStart: 05-05-2025 End: 04-69-0334Arxdkl flowsheetRylee Northeim PA Work Phone: [facility] SWS DERMStart: 05-05-2025 End: 62-48-2680Gdjqwg flowsheetMagnetic SoftwareSaint [facility] PA Work Phone: noms SWS DERMStart: 03-10-2025 End: 84-06-9339Wnezhw outpatient visit 5 minutesRylee Joesouth [facility] PA Work Phone: noms SWS DERMComment on above:Psoriasis vulgaris (CMS/HCC) (Primary Dx); High risk medication useStart: 03-10-2025 End: 60-74-8681pakdtwaibhYOQFM NORTHMNot AvailableStart: 03-10-2025 End: 49-97-7468Oqgxxw flowsheetCrockett Hospital PA Work Phone: NOHL SWS DERMStart: 03-10-2025 End: 67-81-7576Efnvvg flowsheetCrockett Hospital PA Work Phone: noms SWS DERMStart: 02-28-2025 End: 39-42-3373Uiyiswo encounter procedureCorey Kisha DO Work Phone: N[facility] HealthcareStart: 02-28-2025 End: 84-01-0584Htcqdjtz preventive med est patient 18-39 yrsCorey Kisha DO Work Phone: NOAG BCP OBComment on above:Well woman exam with routine gynecological examStart: 02-28-2025 End: 29-19-7113pjusedzsgoMUZNA FAZIONot AvailableStart: 02-28-2025 End: 76-58-4839Mscbsz flowsheetCorey Kisha DO Work Phone: [facility] BCP OBStart: 02-28-2025 End: 51-01-8779Qmneci flowsheetCorey Kisha DO Work Phone: [facility] BCP OBStart: 02-28-2025 End: 43-89-3172Brcdzqcel Result EncounterCorey Kisha DO Work Phone: NOPZ External Department UnsolicitedStart: 02-07-2025 End: 50-52-5112Mnwyvb outpatient visit 5 minutesNatalie A Felter CARE ASST-TECHNOLOGY INTERN Work Phone: NOFB SWS DERMComment on above:Psoriasis vulgaris (CMS/HCC); High risk medication useStart: 02-07-2025 End: 91-97-5522vivbjhurtfNCNEZVT A FELTERNot AvailableStart: 02-07-2025 End: 68-38-3428Vvbhyk flowsheetNatalie A Felter CARE ASST-TECHNOLOGY INTERN Work Phone: NOMS SWS DERMStart: 02-07-2025 End: 25-24-3037Lklvhe flowsheetNatalie A Felter CARE ASST-TECHNOLOGY INTERN Work Phone: NOMS SWS DERMStart: 11-15-2024 End: 41-82-4533Qnqeda flowsheetRylee [facility] PA Work Phone: NOMS SWS DERMStart: 11-15-2024 End: 13-42-4554Jliajm flowsheetRye [facility] PA Work Phone: NOMS SWS DERMStart: 11-15-2024 End: 58-27-0685Wscyze outpatient visit 25 minutesC[facility]ett [facility] PA Work Phone: NOMS SWS DERMComment on above:Psoriasis vulgaris (CMS/HCC) (Primary Dx); High risk medication use; Acne vulgarisStart: 11-15-2024 End: 83-24-0219dubvzbvxctQOCEI NORTHEIMNot AvailableStart: 09-15-2024 End: 72-86-6878Vjxurd flowsheetlee [facility] PA Work Phone: N[facility] SWS DERMStart: 09-15-2024 End: 38-20-4610Fdjgcq flowsheetRylee [facility] PA Work Phone: [facility] SWS DERMStart: 09-15-2024 End: 37-67-7949Jupzwa outpatient new 45 minutesCrockett Hospital PA Work Phone: [facility] SWS DERMComment on above:Psoriasis vulgaris (CMS/HCC); Acne vulgarisStart: 09-15-2024 End: 80-31-0981ofggupucjjNECSL NORTHEIMNot AvailableStart: 67-10-0934Tkkpnepeb Result EncounterCorey Kisha DO Work Phone: noms External Department UnsolicitedStart: 12-11-2023 Clinisync Result EncounterCorey Kisha DO Work Phone: noms External Department UnsolicitedStart: 12-10-2023 Chart abstractingCorey Kisha DO Work Phone: [facility] BCP OBStart: 46-48-1344jctmxlbmxtKV SAJI MICHELLE . Facility:P0Xusnp: 11-07-2022 End: 21-51-5704zgckuxojicZO VIVIAN Welch DENICEFacility:P8Ysdxk: 11-05-2022 End: 61-92-0074pinvlfcwtzIF SAJI MICHELLE .Facility:M1Biszf: 10-22-2022 End: 59-63-6837rrwtnytmczRROIDQ CRAMERFacility:A2Wblgf: 12-31-2018 End: 43-65-2929Zywbfxk encounter procedureJodeb ZazuetaFacility:CD:[id number] Procedures DateProcedureProcedure DetailPerforming ClinicianStart: 08-88-3525QSF,APTIMA HPV,AGE GDLNCorey Kisha DO Work Phone: Start: 51-70-4906Jdkx cerv/vag auto thin layer prep mnl screenCorey Kisha DO Work Phone: Start: 27-92-6680UTS CBC WITH AUTO DIFFCorey Kisha DO Work Phone: Plan of Treatment DateCare ActivityDetailAuthorStart: 03-06-2026 End: 03-72-4443Fiypnir encounter procedureNOMS BCP OBStart: 11-02-2025 End: 16-70-6962Plblcgs encounter pceljztth02/07/2026 3:00 PM EST Office Visit [facility] [address] [place] [address] Annette Baez PA [address] [place] [address] NOMReynaldo Mann DermatologyStart: 09-01-2025 End: 81-62-6668Gzughey encounter procedureNOMS Mackenzie DermatologyComment on above:ArrivedStart: 07-07-2025 End: 92-69-9531Gatausm encounter bmaffnshn54/11/2025 3:50 PM EDT Office Visit [facility] [address] [place] [address] Annette Baez PA [address] [place] [address] NOMS SWS DERMStart: 05-05-2025 End: 83-40-5205Efbktjx encounter procedureNOMS SWS DERMComment on above:Arrived Start: 03-15-2025 End: 02-14-6166Ibyknbi encounter geakdkpwk44/20/2025 8:50 AM EDT Office Visit [facility] [address] [place] [address] Annette Baez, JACKSON [address] [place] [address] NOMS SWS DERMStart: 03-10-2025 End: 52-01-8029Pgsthqi encounter procedureNOMS SWS DERMComment on above:Arrived Start: 02-28-2025 End: 84-42-2234Teuwrqk encounter procedureNOMS BCP OBComment on above:Arrived Start: 02-07-2025 End: 57-20-1847Jqbxrtpb Slmzxyl0702/07/2025 3:35 PM EDT Clinical Support [facility] [address] [place] [address] Micheline Souza APRN-TIM [address] [place] [address] ( Work) ArrivedNOMS SWS DERMComment on above:ArrivedStart: 11-15-2024 End: 58-32-3998Hmybaru aminotransferase [Enzymatic activity/volume] in Serum or PlasmaALT Lab Routine Psoriasis vulgaris (CMS/HCC) High risk medication use Expected: 11/15/2024 (Approximate), Expires: 11/15/2025[facility] HealthcareComment on above:Expected: 11/15/2024 (Approximate), Expires: 11/15/2025Start: 11-15-2024 End: 06-17-2709Vdwawshli aminotransferase [Enzymatic activity/volume] in Serum or PlasmaAST Lab Routine Psoriasis vulgaris (CMS/HCC) High risk medication use Expected: 11/15/2024 (Approximate), Expires: 11/15/2025[facility] HealthcareComment on above:Expected: 11/15/2024 (Approximate), Expires: 11/15/2025Start: 11-15-2024 End: 38-65-5378OAV W Auto Differential panel - BloodCBC and differential Lab Routine Psoriasis vulgaris ([facility]/HCC) High risk medication use Expected: (Approximate), Expires: 11/15/2025[facility] HealthcareComment on above: Expected: 11/15/2024 (Approximate), Expires: 11/15/2025Start: 11-15-2024 End: 09-41-6298Crqeowxcl B virus surface Ag [Presence] in Serum or Plasma by ImmunoassayHepatitis B surface antigen Lab Routine Psoriasis vulgaris ([facility]/HCC) High risk medication use Expected: 11/15/2024 (Approximate), Expires: 11/15/2025 [facility] HealthcareComment on above:Expected: 11/15/2024 (Approximate), Expires: 11/15/2025Start: 11-15-2024 End: 90-01-3723Rcmfvlmra C virus Ab [Presence] in Serum or Plasma by Immunoassay Hepatitis C antibody Lab Routine Psoriasis vulgaris (CMS/HCC) High risk medication use Expected: 11/15/2024 (Approximate), Expires: 11/15/2025[facility] HealthcareComment on above:Expected: 11/15/2024 (Approximate), Expires: 11/15/2025Start: 11-15-2024 End: 61-71-1140UOR 1 RNA,QL REAL TIME PCRHIV 1 RNA,QL REAL TIME PCR Lab Routine Psoriasis vulgaris (CMS/HCC) High risk medication use Expected: 11/15/2024 (Approximate), Expires: 11/15/2025[facility] HealthcareComment on above:Expected: 11/15/2024 (Approximate), Expires: 11/15/2025Start: 11-15-2024 End: 68-98-1913KWGKPEJIPHI TB GOLDNOMS Healthcare Work Phone: comment on above:Expected: 11/15/2024 (Approximate), Expires: 11/15/2025Start: 11-15-2024 End: 41-27-9221Sidpazb encounter procedureNOMS SWS DERMComment on above:Arrived Start: 09-15-2024 End: 64-19-1028Mtvhqrb encounter yzeumooxe26/20/2024 8:40 AM EST Office Visit [facility] [address] [place] [address] Annette Baez PA [address] [place] [address] ArrivedNOMS SWS DERMComment on above:ArrivedStart: 02-18-2024 End: 37-32-7533Yfnxpwz encounter hplejwzgj59/24/2024 3:00 PM EDT Office Visit [facility] [address] [place] [phone] Kristen Beard, DO [address] [place], [place] [id number] NOM[facility] BCP OBStart: 12-11-2023 End: 33-14-4687Qcrfyxa encounter gugxcgcju92/15/2024 9:00 AM EST Office Visit [facility] [address] [place] [address] Kristen Beard, DO [address] [place], [place] [id number] Irregular periods/menstrual cycles; Crampy pain associated with mensesNOMS BCP OBComment on above:Irregular periods/menstrual cycles; Crampy pain associated with mensesCytology Cervical or vaginal smear or scraping studyPap Smear Pathology and Cytology Routine Well woman exam with routine gynecological exam Ordered: 02/28/2025[facility] Work Phone: comment on above:Ordered: 02/28/2025 Payers DatePayer CategoryPayerPolicy [id number] Sub[facility] Plan / Payer (Effective 2023-Present) Name: Maria C Flores Relation to Subscriber: Spouse Name: Devin Flores Dateof : 1991 Address: [facility] [address] [place] [address] Payer ID: Not on file Type: Not on file Address: [id number] [place], [place] [id number] [facility] [id number] 2023-Present [phone] [place], [place] [id number] Private Health Nz[id number] 2.840.1.233169.3.579.2.727 [id number] 2.840.1.709992.3.57[id number] 2.840.1.062493.3.57[id number] 2.0.1.215284.3.57[id number] 2.16.840.1.434122.3.579.[id number] 2.16.840.1.109831.3.579.[id number] 2.16.840.1.775170.3.57[id number] 2.16.840.1.519416.3.57[id number] 2.16.840.1.138934.3.57[id number] 2.16.840.1.394855.3.57[id number] 2.16.840.1.041901.3.57[id number] 2.16.840.1.672006.3.57[id number] 2.16.840.1.035566.3.579.2.876416-57-1254Rboq-zny59886881136-31-8931Uxjxiwa [id number] Social History DateTypeDetailFacilityStart: 12-10-2023 End: 63-94-2143Qjloktp smoking status NHISTobacco smoking consumption unknown [facility] HealthcareStart: 12-10-2023 End: 73-26-6070Vuyxhni intakeEx-drinker (finding)[facility] HealthcareStart: 33-89-2570Ijxubbz Comment* current smoker frequency unknownNOUT HealthcareStart: 19-03-1534Pffijig CommentRecently quitNOMS HealthcareStart: 29-69-2310Ryu Assigned At BirthNot on fileNOUT HealthcareStart: 12-96-5314Xddnxx identityNot on [facility] HealthcareStart: 61-64-8288Yfbudbr smoking status NHISNever smoked tobaccoNOMS HealthcareStart: 05-02-7271Klvdhyn use and exposureSmokeless tobacco non-userNOUT HealthcareStart: 39-37-5414Qzxpsqk of Social functionNOUT HealthcareStart: 25-54-2545JniKhwxqfUOLD Healthcare Clinical Notes 09-15-2024 to 09-01-2025 Note Date & NaldEhiwGrxrqrov15-12-7051 History of Present illness Narrative* JACKSON Sargent - 09/01/2025 3:30 PM EST Follow up: Psoriasis Location: bilateral knees and elbows Duration: years Associated Factors: none today Initial BSA: 10%, sPGA 3 Joint pain present: No History of Depression: Yes, currently takes Celexa Treatments tried: TAC 0.1 % cream, Otezla 30 mg Changes made to treatment at last visit: no Current treatment: Tremfya 100 MG/ML solution auto-injector Last TB test: 12/01/2024 Patient has noticed improvement in itching since starting current treatment. Here today for Tremfya injection All pertinent medical history, medications, and allergies were reviewed. General Exam: alert, oriented to person, place, and time, normal affect, well appearing Unaccompanied A focused exam completed based on patient reported problems, see below: Skin Exam 1. PSORIASIS VULGARIS Left Elbow - Posterior, Left Knee - Anterior, Right Elbow - Posterior, Right Knee - Anterior Here for injection today. Patient presents today for Tremfya 100 mg injection. The patient was educated on the proper procedure for self-injecting. Informed patient the frequency in which the injection should be given. The patient was instructed to postpone injection if ill on the day injection is due and to resume when feeling well. Instructed not to receive any live vaccines while taking this medication. Proper methods of sharps disposal were reviewed. RTC 8 weeks for next injection. Medication: Tremfya Route: Subcutaneous Location of injection: right thigh Lot #: [id number] Expiration date: 04/2026 Plan to follow up in 8 weeks for next injection. This Visit - guselkumab (Tremfya) injection 100 mg Existing Treatments - Guselkumab (Tremfya) 100 MG/ML solution auto-injector - Inject 100 mg under the skin every 8 (eight) weeks - guselkumab (Tremfya) injection 100 mg 2. HIGH RISK MEDICATION USE This Visit - guselkumab (Tremfya) injection 100 mg Existing Treatments - guselkumab (Tremfya) injection 100 mg Next Visit: 8 weeks injection and follow up documented in this encounterSullivan County Memorial HospitalIbuebktehc33-80-2450 History of Present illness Narrative* JACKSON Sargent - 07/07/2025 3:50 PM EDT Follow up: Psoriasis Location: bilateral knees and elbows Duration: years Associated Factors: none today Initial BSA: 10%, sPGA 3 Joint pain present: No History of Depression: Yes, currently takes Celexa Treatments tried: TAC 0.1 % cream, Otezla 30 mg Changes made to treatment at last visit: no Current treatment: Tremfya 100 MG/ML solution auto-injector Last TB test: 12/01/2024 Patient has noticed improvement in itching since starting current treatment. Here today for Tremfya injection All pertinent medical history, medications, and allergies were reviewed. General Exam: alert, oriented to person, place, and time, normal affect, well appearing Unaccompanied A focused exam completed based on patient reported problems, see below: Skin Exam 1. PSORIASIS VULGARIS Left Elbow - Posterior, Left Knee - Anterior, Right Elbow - Posterior, Right Knee - Anterior Here for injection today. Patient presents today for Tremfya 100 mg injection. The patient was educated on the proper procedure for self-injecting. Informed patient the frequency in which the injection should be given. The patient was instructed to postpone injection if ill on the day injection is due and to resume when feeling well. Instructed not to receive any live vaccines while taking this medication. Proper methods of sharps disposal were reviewed. RTC 8 weeks for next injection. Tremfya supplied by patient. See MAR Location: right thigh Expiration: 04/26/2026 Lot #: [id number] Plan to follow up in 8 weeks for next injection. Related Medications Guselkumab (Tremfya) 100 MG/ML solution auto-injector Inject 100 mg under the skin every 8 (eight) weeks guselkumab (Tremfya) injection 100 mg Guselkumab solution auto-injector 100 mg 2. HIGH RISK MEDICATION USE Related Medications guselkumab (Tremfya) injection 100 mg Next Visit: 09/01, INJECTION documented in this encounterSullivan County Memorial HospitalXxzspghevy25-26-4390 History of Present illness Narrative* JACKSON Sargent - 05/05/2025 3:50 PM EDT Follow up: Psoriasis Location: bilateral knees and elbows Duration: years Associated Factors: none today Initial BSA: 10%, sPGA 3 Joint pain present: No History of Depression: Yes, currently takes Celexa Treatments tried: TAC 0.1 % cream, Otezla 30 mg Changes made to treatment at last visit: no Current treatment: Tremfya 100 MG/ML solution auto-injector Last TB test: 12/01/2024 Patient has noticed improvement in itching since starting current treatment. Here today for Tremfya injection All pertinent medical history, medications, and allergies were reviewed. General Exam: alert, oriented to person, place, and time, normal affect, well appearing Unaccompanied A focused exam completed based on patient reported problems, see below: Skin Exam 1. PSORIASIS VULGARIS Left Elbow - Posterior, Left Knee - Anterior, Right Elbow - Posterior, Right Knee - Anterior Here for injection today. Patient presents today for Tremfya 100 mg injection. The patient was educated on the proper procedure for self-injecting. Informed patient the frequency in which the injection should be given. The patient was instructed to postpone injection if ill on the day injection is due and to resume when feeling well. Instructed not to receive any live vaccines while taking this medication. Proper methods of sharps disposal were reviewed. RTC 8 weeks for next injection. Tremfya supplied by patient. See MAR Location: right thigh Expiration: 06/27/2026 Lot #: [id number] Plan to follow up in 8 weeks for next injection. Related Medications Guselkumab (Tremfya) 100 MG/ML solution auto-injector Inject 100 mg under the skin every 8 (eight) weeks guselkumab (Tremfya) injection 100 mg 2. HIGH RISK MEDICATION USE Related Medications guselkumab (Tremfya) injection 100 mg Next Visit: 2 months documented in this encounterSullivan County Memorial HospitalDcjodatxys32-84-1374 History of Present illness Narrative* JACKSON Sargent - 03/10/2025 3:50 PM EDT Subjective Maria C Flores is a 29 y.o. female who presents for the following: Psoriasis biologic follow up Location: bilateral knees and elbows Duration: years Associated Factors: none today Initial BSA: 10%, sPGA 3 Joint pain present: No History of Depression: Yes, currently takes Celexa Treatments tried: TAC 0.1 % cream, Otezla 30 mg Changes made to treatment at last visit: no Current treatment: Tremfya 100 MG/ML solution auto-injector Months of current treatment: 1 Last TB test: 12/01/2024 Patient has noticed improvement in itching since starting current treatment. Established patient All pertinent medical history, medications, and allergies were reviewed. General Exam: alert, oriented to person, place, and time, normal affect, well appearing Unaccompanied A focused exam completed based on patient reported problems, see below: Skin Exam 1. PSORIASIS VULGARIS (CMS/HCC) Left Elbow - Posterior, Left Knee - Anterior, Right Elbow - Posterior, Right Knee - Anterior Patient presents today for Tremfya 100 mg injection. The patient was educated on the proper procedure for self-injecting. Informed patient the frequency in which the injection should be given. The patient was instructed to postpone injection if ill on the day injection is due and to resume when feeling well. Instructed not to receive any live vaccines while taking this medication. Proper methods of sharps disposal were reviewed. RTC 8 weeks for next injection. Tremfya supplied by patient. See MAR Location: left thigh Expiration: 04/26/2026 Lot #: [id number]. Plan to follow up in 8 weeks for next injection. Related Medications Guselkumab (Tremfya) 100 MG/ML solution auto-injector Inject 100 mg under the skin every 8 (eight) weeks guselkumab (Tremfya) injection 100 mg 2. HIGH RISK MEDICATION USE Next Visit: as scheduled. documented in this encounterSullivan County Memorial HospitalIgzvsuwxiy74-18-2429 History of Present illness Narrative* Fallon Davidson, EXTERIOR DOOR INSTALLER - 02/28/2025 4:00 PM EDT Reason for Appointment: Patient ID: Maria C Flores is a 29 y.o. female who presents for Well Women Visit Patient presents today for Annual Exam. MEDICATIONS Current Outpatient Medications Medication Instructions calcium citrate (CALCITRATE) 475 mg, Daily Cholecalciferol (Vitamin D3) 2400 UNIT/ML liquid as directed citalopram (CELEXA) 40 mg, Daily MAGNESIUM 4 MUSCLES Magnesium ondansetron (ZOFRAN) 4 mg, Daily PRN Tremfya 100 mg, Subcutaneous, Every 8 weeks Tremfya 100 mg, Subcutaneous, See admin instructions, Inject 100 mg (contents of one pen) under theskin at week 0 and week 4. Zinc 10 MG lozenge Zinc ALLERGIES Allergies Allergen Reactions Sulfamethoxazole-Trimethoprim Unknown Other Reaction(s): never taken, family is allergic PROBLEMS Active Ambulatory Problems Diagnosis Date Noted No Active Ambulatory Problems Resolved Ambulatory Problems Diagnosis Date Noted No Resolved Ambulatory Problems Past Medical History: Diagnosis Date Anxiety and depression ([facility]) Contraceptive education Current smoker Hip pain Morbid obesity with BMI of 50.0-59.9, [place] Pap smear for cervical cancer screening 2019 Pubic bone pain HISTORY PAST MEDICAL HISTORY SOCIAL HISTORY Past Medical History: Diagnosis Date Anxiety and depression ([facility]) Contraceptive education Current smoker Hip pain Morbid obesity with BMI of 50.0-59.9, adult ([facility]) Pap smear for cervical cancer screening 2019 neg Pubic bone pain Social History Tobacco Use Smoking status: Unknown Smokeless tobacco: Not on file Tobacco comments: * current smoker frequency unknown Vaping Use Vaping status: Never Used Substance Use Topics Alcohol use: Not Currently Comment: Recently quit Drug use: Never FAMILY HISTORY Family History Problem Relation Name Age of Onset Hypertension Father Heart disease Father Cancer Maternal Grandmother Diabetes Maternal Grandfather Heart disease Paternal Grandfather Hypertension Paternal Grandfather SURGICAL HISTORY Past Surgical History: Procedure Laterality Date CYST REMOVAL 2017 WISDOM TOOTH EXTRACTION 2013 wisdom teeth REVIEW OF SYSTEMS Review of Systems: Review of Systems Constitutional: Negative. HENT: Negative. Eyes: Negative. Respiratory: Negative. Cardiovascular: Negative. Gastrointestinal: Negative. Genitourinary: Negative. Musculoskeletal: Negative. Skin: Negative. Neurological: Negative. All other systems reviewed and are negative. Hematological: Negative. Endocrine: Negative. Allergic/Immunologic: Negative. OBJECTIVE Objective: Physical Exam Constitutional: Appearance: Normal appearance. She is well-developed. Genitourinary: Vulva normal. Breasts: Breasts are soft. Right: Normal. Left: Normal. Cardiovascular: Rate and Rhythm: Normal rate and regular rhythm. Pulmonary: Effort: Pulmonary effort is normal. Breath sounds: Normal breath sounds. Abdominal: General: Bowel sounds are normal. There is no distension. Palpations: Abdomen is soft. Tenderness: There is no abdominal tenderness. There is no guarding or rebound. Musculoskeletal: General: No swelling. Normal range of motion. Right lower leg: No edema. Left lower leg: No edema. Neurological: Mental Status: She is alert and oriented to person, place, and time. Skin: General: Skin is warm and dry. Psychiatric: Mood and Affect: Mood normal. Behavior: Behavior normal. Vitals and nursing note reviewed. Exam conducted with a collections agent present. Vitals: Estimated body mass index is 34.78 kg/m as calculated from the following: Height as of 24: 5' 5 . Weight as of this encounter: 209 lb. BP: 126/80 No LMP recorded. ASSESSMENT & PLAN ICD-10-CM 1. Well woman exam with routine gynecological exam Z01.419 Pap Smear Annual Exam: Patient presents today for an annual exam. Patient states she is doing well and has no complaints. Pap was obtained without difficulty. Patient had skin tag on left buttocks. Removed without complications with scissors and pickups. Follow Up: Patient is to return in one year for annual unless needed otherwise. Documented by Fallon Davidson LPN on behalf of: Kristen Beard DO documented in this encounterSullivan County Memorial [id number] History of Present illness Narrative* Micheline Souza APRN-TIM - 02/07/2025 3:35 PM EDT Claritza Flores is a 29 y.o. female who presents for the following: Psoriasis biologic follow up Location: Bilateral knees and elbows Duration: Years Associated Factors: getting more tender and itchy Initial BSA: 10%, sPGA 3 Joint pain present: No History of Depression: Yes, currently takes Celexa Treatments tried: TAC 0.1 % cream, Otezla 30 mg Changes made to treatment at last visit: Yes Current treatment: Patient is here today for Tremfya injection training Months of current treatment: 0 Last TB test: 2018, 12/01/2024 Established patient All pertinent medical history, medications, and allergies were reviewed. General Exam: alert, oriented to person, place, and time, normal affect, well appearing Accompanied by spouse A focused exam completed based on patient reported problems, see below: Skin Exam 1. PSORIASIS VULGARIS (CMS/HCC) Left Elbow - Posterior, Left Knee [...] TAC 0.1% bid when flared for stubborn areas,. Patient presents today for Tremfya 100 mg injection training. The patient was educated on the proper procedure for self-injecting. The patient performed self- injection without difficulty. Informed patient the frequency in which the injection should be given. The patient was instructed to postpone injection if ill on the day injection is due and to resume when feeling well. Instructed not to receive any live vaccines while taking this medication. Proper methods of sharps disposal were reviewed. Related Medications triamcinolone (Kenalog) 0.1 % cream Apply topically 2 (two) times a day as needed for rash Guselkumab (Tremfya) 100 MG/ML solution auto-injector Inject 100 mg under the skin every 8 (eight) weeks Guselkumab (Tremfya) 100 MG/ML solution auto-injector Inject 100 mg under the skin See administration instructions Inject 100 mg (contents of one pen) under the skin at week 0 and week 4. Guselkumab solution auto-injector 100 mg 2. HIGH RISK MEDICATION USE Next Visit: 4 weeks, injection tremfya documented in this encounterSullivan County Memorial [id number] History of Present illness Narrative* Annette Baez, JACKSON - 11/15/2024 8:30 AM EST Images from the original note were not [...] is candidate for injectable biologic medication as meterman use of topical steroids in contraindicated. Discussed [...] months (psoriasis follow up) documented in this encounterSullivan County Memorial [id number] History of Present illness Narrative* JACKSON Sargent - 09/15/2024 8:40 AM EST Images from the original note were not included. Claritza Flores is a 29 y.o. female who [...] it for her. Today, she is flaring onknees, elbows and scalp. Start Otezla samples given [...] moisturizer. Start Clindamycin lotion qam and Tretinoin 0.025%at bedtime. Start by using a pea size [...] Next Visit: 2 months documented in [facility] encounterN[facility]Evaluation [facility]* Diagnosis Psoriasis vulgaris (CMS/HCC) Other psoriasis Acne vulgaris Other acne [facility] Diagnosis Psoriasis vulgaris (CMS/HCC)- Primary Other psoriasis High risk medication use Acne vulgaris Other acne [facility] Diagnosis Psoriasis vulgaris (CMS/HCC) Other psoriasis High risk medication use [facility]* Diagnosis Well woman exam with routine gynecological exam Routine gynecological examination documented [facility] this [facility] Diagnosis Psoriasis vulgaris (CMS/HCC)- Primary Other psoriasis High risk medication use [facility]* Diagnosis Psoriasis vulgaris- Primary Other psoriasis High risk medication use [facility]* Diagnosis Psoriasis vulgaris Other psoriasis High risk medication use [facility]* Diagnosis Psoriasis vulgaris- Primary Other psoriasis High risk medication use documented in this encounter [facility] Summary Purpose Family History No Family History Records FoundNo Family History Records FoundNo Family History Records Found Advance Directives No Advanced Directives Records FoundNo Advanced Directives Records FoundNo Advanced Directives Records Found Additional Source Comments INFORMATION SOURCE (unrecogn ized section and content) DATE CREATED AUTHOR 01/02/2019 [facility] DATE CREATED AUTHOR AUTHOR'S ORGANIZ ATION 02/28/2023 [facility] DATE CREATED AUTHOR AUTHOR'S ORGANIZ ATION 09/03/2025 [facility] EPIC Care Teams (unrecognized sec tion and content) Team MemberRelationshipSpecialtyStart DateEnd Date Saji Mays MD [address] [place] [address] PCP - GeneralFamily Medicine12/11/23Team MemberRelationshipSpecialtyStart DateEnd Date Saji Mays MD [address] [place] [facility] [place] [address] PCP - GeneralFamily Medicine12/11/23Team MemberRelationshipSpecialtyStart DateEnd Date Saji Mays MD [address] [place] [facility] [place] [address] PCP - GeneralFamily Medicine12/11/23Team MemberRelationshipSpecialtyStart DateEnd Date Saji Mays MD [address] [place] [facility] [place] [address] PCP - GeneralFamily Medicine12/11/23Team MemberRelationshipSpecialtyStart DateEnd Date Saji Mays MD [address] [place] [facility] [place] [address] PCP - GeneralFamily Medicine12/11/23Team MemberRelationshipSpecialtyStart DateEnd Date Saji Mays MD [address] [place] [facility] [place] [address] PCP - GeneralFamily Medicine12/11/23Team MemberRelationshipSpecialtyStart DateEnd Date Saji Mays MD PCP - GeneralFamily Medicine12/11/23Team MemberRelationshipSpecialtyStart DateEnd Date Saji Mays MD PCP - GeneralFamily Medicine12/11/23Team MemberRelationshipSpecialtyStart DateEnd Date Saji Mays MD PCP - [facility]12/11/23Te MemberRelationshipSpecialtyStart DateEnd Date Saji Mays MD [address] [place] [facility] [place] [address] PCP - [facility]12/11/23Te MemberRelationshipSpecialtyStart DateEnd Date Saji Mays MD [address] [place] [facility] [place] [address] PCP - [facility]12/11/23Te MemberRelationshipSpecialtyStart DateEnd Saji Mays MD [address] [place] [facility] [address] PCP - [facility]12/11/23Te MemberRelationshipSpecialtyStart DateEnd Saji Mays MD [address] [place] [facility] [place] [address] PCP - [facility]12/11/23 Reason for Visit (unrecogniz ed section and content) ReasonCommentsDry skinReasonCommentsFollow-upReasonCommentsInjection Training ReasonCommentsWell Women VisitReasonCommentsPsoriasis FOR RECORDS PERTAINING TO PATIENTS WHO ARE [...] BE BASED ON THE PRIMARY CLINICAL RECORDS. [facility]. provides no warranty or guarantee of the accuracy or completeness of information in this document.
[2025-10-03] MEDS: MAGNESIUM OXIDE 400 MG TABLET PO (19:03)
[2025-10-03] MEDS: POTASSIUM BICARBONATE/CIT 25 MEQ TABLET EFF PO (19:03)
--- NOTE | 2025-10-03 20:09 | XR_ITS ---
The [address] [address] Patient Name: TANIYA QUIGLEY MRN: [facility]:[id number] date: 1995 Sex: F Assigned Patient Location: ER Current Patient Location: ER Accession/Order Number: [id number] Exam Date: 10/03/2025 20:27 Report Date: 10/03/2025 21:55 At the request of: DAVID LITTLEJOHN MD Procedure: XR chest 2V PA AND LATERAL CHEST: CLINICAL HISTORY: tachycardia COMPARISON: 11/05/2022 FINDINGS: Unremarkable cardiomediastinal. Lungs clear. No effusion or pneumothorax. XR/XR chest 2V IMPRESSION: NO ACUTE CARDIOPULMONARY ABNORMALITY. Impression dictated by: Hamilton Gutierrez M.D. 10/03/2025 9:55 PM Dictation Location: [place] [address] Electronically authenticated by: [id number] Y Date: 10/03/2025 21:55
== END 2025-10-03 22:38 | disposition home or self-care (01) ==
PROVIDERS: Emergency Medicine; Emergency Provider Internal Medicine; PCP Family Medicine
DX: I47.10 Supraventricular tachycardia, unspecified (principal)
CPT/HCPCS: 36415; 71046; 80053; 83735; 84484; 85025; 93005; 99284; 99285

== ENCOUNTER 2025-10-04 15:02 | Emergency (ER) | payer BC, SELFPAY ==
[2025-10-04] VITALS (13 sets, daily range): BP systolic 128; BP diastolic 99; PULSE 88–106; TEMP 36.7; O2SAT 96–99; BMI 33.1
--- NOTE | 2025-10-04 15:04 | ED_ITS ---
HPI HPI - General Adult General Chief complaint: Arrhythmia/Palpitations Stated complaint: OTHER Time Seen by Provider: 10/04/25 15:03 History of Present Illness HPI narrative: Patient presents to the ER for the january for the same complaint of having chest pressure associated with SVT, by the time she was evaluated by the EMS the patient was provided with the adenosine 6 milligram after which the patient was provided with IV fluid Presented to us with no symptom and she did not have any chest pain or dizziness at any time she only had chest pressure Related Data Home Medications ?Medication ?Instructions ?Recorded ?Confirmed cholecalciferol (vitamin D3) 50 50 mcg PO DAILY 10/04/25 mcg (2,000 unit) capsule (D3-2000) citalopram 40 mg tablet 40 mg PO DAILY 10/04/2507/21 Previous Rx's ?Medication ?Instructions ?Recorded flecainide 50 mg tablet 50 mg PO Q12H #20 tabs 10/04 magnesium oxide 400 mg PO DAILY #3 caps 07/21 Allergies Allergy/AdvReac Type Severity Reaction Status Date / Time sulfamethoxazole (From Allergy Unknown Unknown Verified 10/03/25 18:18 Bactrim) trimethoprim (From Bactrim) Allergy Unknown Unknown Verified 10/03/25 18:18 Review of Systems ROS Status of ROS 10 or more systems reviewed and unremark able except as noted in history and below PFSH PFSH Social History Little interest or pleasure in doing things: not at all Feeling down, depressed, or hopeless: not at all Exam Narrative Exam Narrative: Nurses notes and vital signs reviewed and patient is not hypoxic. General: Well-appearing and in no apparent distress. Skin: Warm, dry, no pallor noted. No rash. Head: Normocephalic, atraumatic. Neck: Supple, non-tender. Cardiovascular: Regular Rate and Rhythm without murmur, gallop or rub. Respiratory: No accessory muscle use or respiratory distress. Lungs are clear to auscultation, no wheezing, rales or rhonchi Chest Wall: no tenderness Back: No midline thoracic or lumbar vertebral tenderness. No CVA tenderness Musculoskeletal: normal ROM, no calf or popliteal tenderness, no lower extremity edema/swelling GI: Abdomen is soft, non-distended. Normal bowel sounds. No masses appreciated. No tenderness to palpation. No rebound, guarding, or rigidity noted. Neurological: A&O x4. No cranial nerve dysfunction observed. No truncal ataxia. Moves all extremities. Sensation intact. Psychiatric: Cooperative and interactive. Normal mood and affect. Constitutional Vital Signs, click to edit/add: Last Vital Signs Temp 98.1 F 10/04/25 15:03 Pulse 94 H 10/04/25 15:20 Resp 19 10/04/25 15:20 BP 128/99 H 10/04/25 15:04 Pulse Ox 99 10/04/25 15:20 O2 Del Method Room Air 10/04/25 15:03 Course Vital Signs Vital signs: Vital Signs Temperature 98.1 F 10/04/25 15:03 Pulse Rate 95 H 10/04/25 15:03 Respiratory Rate 20 10/04/25 15:03 Blood Pressure 128/99 H 10/04/25 15:03 Pulse Oximetry 98 10/04/25 15:03 Oxygen Delivery Method Room Air 10/04/25 15:03 Temperature 98.1 F 10/04/25 15:03 Pulse Rate 94 H 10/04/25 15:20 Respiratory Rate 19 10/04/25 15:20 Blood Pressure 128/99 H 10/04/25 15:04 Pulse Oximetry 99 10/04/25 15:20 Oxygen Delivery Method Room Air 10/04/25 15:03 Medical Decision Making [facility] Narrative Medical decision making narrative: Already had a blood workup done yesterday including the fact that her troponin was elevated mildly after the second test The patient potassium level is normal and the magnesium is mildly low The patient EKG shows no QT prolongation at the QTc is less than 400, patient right now is having sinus rhythm no ST elevation or depression and she have no symptoms The patient blood workup otherwise showed unremarkable results with the troponin less than what it was yesterday at the level of 160 and when she was discharged it was 190 The patient case was discussed with Dr. Mercado from cardiology service and he recommended the patient to be started on flecainide I will start the patient flecainide 50 mg twice daily instead of 100 because it is lower dose and I did discuss that with the patient and she is agreeable on starting the lower dose of 50 mg twice daily Patient also take Celexa and right now there is no QTc prolongation and adding the flecainide the patient will be on a short-term treatment for that but she will come back in case of any new symptoms Patient also discharged with magnesium oxide as supplements for the next few days The patient to come back to the ER in case of new symptoms or concerns and she is to follow-up with Dr. Mercado as outpatient for possible ablation The patient to follow-up with the primary care within 2 to 3 days and to come back to the ER in case of any worsening of the current symptoms or any new symptoms or concerns Lab Data Labs: Lab Results 10/04/25 Range/Units 15:05 WBC 12.1 H (4.0-11.0) 10^3/uL RBC 4.63 (4.20-5.40) 10^6/uL Hgb 13.7 (12.0-16.0) g/dL Hct 40.1 (36.0-48.0) % MCV 86.6 (81.0-99.0) fL MCH 29.6 (26.7-34.0) pg MCHC 34.2 (29.9-35.2) g/dL RDW 12.5 (11.0-15.0) % Plt Count 276 (150-450) 10^3/uL MPV 8.9 L (9.5-13.5) fL Neut % (Auto) 69.4 (43.0-75.0) % Lymph % (Auto) 21.8 (20.5-60.0) % [place] % (Auto) 5.1 (1.7-12.0) % Eos % (Auto) 2.8 (0.9-7.0) % Baso % (Auto) 0.5 (0.2-2.0) % Neut # (Auto) 8.4 H (1.4-6.5) 10^3/uL Lymph # (Auto) 2.7 (1.2-3.8) 10^3/uL [place] # (Auto) 0.6 (0.3-0.8) 10^3/uL Eos # (Auto) 0.3 (0.0-0.7) 10^3/uL Baso # (Auto) 0.1 (0.0-0.1) 10^3/uL Abs Immat Gran (auto) 0.05 H (0.00-0.03) 10^3/uL Imm/Tot Granulo (auto) 0.4 (0.0-0.5) % Sodium 144 (136-145) mmol/L Potassium 3.8 (3.5-5.1) mmol/L Chloride 110 H (98-107) mmol/L Carbon Dioxide 22.4 (21.0-32.0) mmol/L Anion Gap 15.4 BUN 7.0 (7.0-18.0) mg/dL Creatinine 0.78 (0.55-1.02) mg/dL Est GFR ( Amer) >60 (>=60 mL/min/1.73m^2) Est GFR (Non-Af Amer) >60 (>=60 mL/min/1.73m^2) BUN/Creatinine Ratio 9.0 Glucose 98 (74-106) mg/dL Calcium 8.6 (8.5-10.1) mg/dL Magnesium 1.6 L (1.8-2.4) mg/dL Total Bilirubin 0.5 (0.2-1.0) mg/dL AST 26 (15-37) U/L ALT 31 (14-59) U/L Alkaline Phosphatase 82 (46-116) U/L Troponin I High Sens 166.9 H* (4.0-51.3) pg/mL Total Protein 6.5 (6.4-8.2) g/dL Albumin 3.4 (3.4-5.0) g/dL Globulin 3.1 g/dL Albumin/Globulin Ratio 1.1 TSH 1.625 (0.358-3.740) uIU/mL Serum HCG, Qual Negative (NEGATIVE) Discharge Plan Discharge Chief Complaint: Arrhythmia/Palpitations Clinical Impression: SVT (supraventricular tachycardia) Patient Disposition: Home, Self-Care Time of Disposition Decision: 16:31 Condition: Good Prescriptions / Home Meds: New flecainide 50 mg tablet 50 mg PO Q12H Qty: 20 0RF magnesium oxide 400 mg magnesium capsule 400 mg PO DAILY Qty: 3 0RF No Action citalopram 40 mg tablet 40 mg PO DAILY cholecalciferol (vitamin D3) [D3-2000] 50 mcg (2,000 unit) capsule 50 mcg PO DAILY Print Language: Uruguayan Instructions: Supraventricular Tachycardia (ED) Additional Instructions: Make sure you follow-up with cardiology as outpatient and call for an appointment with Dr. Mercado by discharge and make sure that you are added as added on to follow-up with Dr. Mercado , Make sure you mention that you were seen in the ER Please come back to the ER in case any new symptoms or concerns Referrals: Nazario Mays MD [Primary Care Provider, Family Practice] - 1 week Bull Mercado MD [Physician, Cardiology] - As soon as possible Referral Note: please make sure to call after dc for appointment
--- NOTE | 2025-10-04 15:04 | ECG_ITS ---
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 Measurements Intervals [place] Rate: 97 P: 66 VT: 174 QRS: 52 QRSD: 80 T: 39 QT: 330 QTc: 384 Interpretive Statements 1100 Sinus rhythm 9110 normal ECG Compared to ECG 10/03/2025 18:28:01 No significant changes Electronically Signed On 10-04-2025 20:03:17 EST by ELIU YANG M.D.
--- NOTE | 2025-10-04 15:15 | XR_ITS ---
[place] [id number] Patient Name: TANIYA QUIGLEY MRN: [id number] date: 1995 Sex: F Assigned Patient Location: ED.MAIN Current Patient Location: ED.MAIN Accession/Order Number: [id number] Exam Date: 10/04/2025 15:10 Report Date: 10/04/2025 16:01 At the request of: LUIS ANTONIO BOBBY MD Procedure: XR chest 1V XR chest 1V 10/04/2025 3:16 PM SIGNS AND SYMPTOMS: ^chest pressure PROTOCOL: Frontal radiograph of the chest COMPARISON: 10/03/2025 FINDINGS: The trachea is midline. The heart and mediastinal structures are within normal limits. The lung parenchyma is clear. The bony thorax is intact. XR/XR chest 1V IMPRESSION: No acute cardiopulmonary pathology. Impression dictated by: Rik Mendez M.D. 10/04/2025 4:01 PM Dictation Location: [place] Electronically authenticated by: [id number] Y Date: 10/04/2025 16:01
[2025-10-04 15:23] LABS: Hematocrit 40.1 % (36.0-48.0); Hemoglobin 13.7 g/dL (12.0-16.0); Immature Granulocytes Abs Auto 0.05 10^3/uL (0.00-0.03); Immature Granulocytes Pct Auto 0.4 % (0.0-0.5); Lymphocytes Absolute Auto 2.7 10^3/uL (1.2-3.8); Mean Corpuscular HGB Conc 34.2 g/dL (29.9-35.2); Mean Corpuscular Hemoglobin 29.6 pg (26.7-34.0); Mean Corpuscular Volume 86.6 fL (81.0-99.0); Platelet Count 276 10^3/uL (150-450); Red Blood Count 4.63 10^6/uL (4.20-5.40); White Blood Count 12.1 10^3/uL (4.0-11.0)
[2025-10-04 15:36] LABS: Alanine Aminotransferase 31 U/L (14-59); Albumin Globulin Ratio 1.1; Albumin Level 3.4 g/dL (3.4-5.0); Alkaline Phosphatase 82 U/L (46-116); Anion Gap 15.4; Aspartate Amino Transferase 26 U/L (15-37); Blood Urea Nitrogen 7.0 mg/dL (7.0-18.0); Calcium 8.6 mg/dL (8.5-10.1); Carbon Dioxide 22.4 mmol/L (21.0-32.0); Chloride 110 mmol/L (98-107); Estimated GFR (African America >60 (>=60 mL/min/1.73m^2); Estimated GFR (Non-African Ame >60 (>=60 mL/min/1.73m^2); Globulin 3.1 g/dL; Glucose 98 mg/dL (74-106); Magnesium 1.6 mg/dL (1.8-2.4); Potassium 3.8 mmol/L (3.5-5.1); Sodium 144 mmol/L (136-145); Total Protein 6.5 g/dL (6.4-8.2)
[2025-10-04 15:41] LABS: Thyroid Stimulating Hormone 1.625 uIU/mL (0.358-3.740)
--- OUTSIDE RECORDS SUMMARY | 2025-10-04 16:07 | XMS_ITS | CCD ---
[facility] Care Team Providers Care Chief Customer Officer Name Role Phone Chris Zazueta Attending Unavailable Saji [phone] UNKNOWN Primary Care Unavailable DENICE, DR VIVIAN [...] Provider UnavailSaji Caldera MD Primary Care Provider [phone] Saji Mays MD Primary Care Provider [id number] [...] (3 sources)Sulfamethoxazole / Trimethoprim; Translations: [Bactrim]Drug Allergy 20-73-9401RnevtzMain [facility] Rep[facility] (20 sources)Sulfamethoxazole / TrimethoprimDrug Haymuaq04-01-3021JunzrnjAXIO [facility] Medications Current Medications MedicationDrug Class(es)DatesSig (Normalized)Sig (Original)calcium citrate 950 mg oral tablet (13 sources)calcium citrate (Calcitrate) 950 (200 Ca) MG tablet Take 475 mg by mouth Daily Activecephalexin 500 mg oral capsule (1 source)Cephalosporin AntibacterialStart: 12-11-2023 End: 44-31-9704sryd 1 capsule by mouth in the morning, [...] mg oral tablet (20 sources)Serotonin Reuptake InhibitorStart: 83-08-5308pxlr 1 tablet by mouth once dailycitalopram (CeleXA) 40 MG tablet Take 40 mg by mouth Daily 02/21/2025 Active End: 16-46-1576weqw 1 tablet by mouth once dailycitalopram (CeleXA) 40 MG tablet TAKE 1 TABLET BY MOUTH ONCE DAILY for 90 days 11/15/2024 DiscontinuedMAGNESIUM 4 MUSCLES (13 sources)MAGNESIUM 4 MUSCLES Magnesium Appgpc48 hr metFORMIN hydrochloride 500 mg extended release oral tablet (4 sources)BiguanideStart: 12-11-2023 End: 18-66-3687ists 1 tablet by mouth every twenty-four hours at mealtime metFORMIN XR (Glucophage-XR) 500 MG 24 hr tablet Indications: Irregular periods/menstrual cycles Take 1 tablet (500 mg) by mouth in the evening. Take with meals Do not crush, chew, or split. 30 tablet 11 12/11/2023 09/15/2024 Discontinuednystatin 100 unt/mg topical powder (4 sources)Polyene AntifungalStart: 01-13-2023 End: 23-55-6496bdhfofvh (Mycostatin) 922815 UNIT/GM powder Apply a small amount to skin twice a day 01/13/2023 09/15/2024 Discontinuedondansetron 4 mg oral tablet (20 sources)Serotonin-3 Receptor AntagonistStart: 70-70-5150voyl 1 tablet by mouth every twenty-four hours as neededondansetron (Zofran) 4 MG tablet Take 4 mg by mouth Daily as needed 04/03/2023 Activephentermine hydrochloride 37.5 mg oral tablet (1 source)Sympathomimetic Amine AnorecticStart: 98-56-3073rydm 1 tablet by mouth before mealtimephentermine (Adipex-P) 37.5 MG tablet Take 37.5 mg by mouth in the morning. Take before meals. 07/06/2025 ActivepredniSONE 20 mg oral tablet (4 sources)Start: 01-13-2023 End: 14-71-0359tukt 3 tablets by mouth in the morningpredniSONE (Deltasone) 20 MG tablet Take 60 mg by mouth in the morning. 01/13/2023 09/15/2024 Discontinued Vit-Fe Fumarate-FA ( Vitamin) 27-0.8 MG tablet (4 sources) End: 44-44-8566Nzjzwiwp Vit-Fe Fumarate-FA ( Vitamin) 27-0.8 MG tablet [...] topical lotion (10 sources)Lincosamide AntibacterialStart: 09-15-2024 End: 22-78-1441ogmbkzpggko (Cleocin T) 1 % lotion Indications: Acne vulgaris Apply thin layer to face, once daily in the morning, 30 day supply 60 mL 11 09/15/2024 02/28/2025 Discontinued1 ml guselkumab 100 mg/ml prefilled syringe (20 sources)Interleukin-23 AntagonistStart: 09-01-2025 End: 51-06-3369kclytzklpv (Tremfya) injection 100 mgStart: 09-01-2025 End: 35-00-7734922 mg, Subcutaneous, Once, On Radha 09/01/25 at [...] to administering. Do not shake.Start: 07-07-2025 End: 22-94-0260Urpqbxzffj solution auto-injector 100 mgStart: 07-07-2025 End: 16-87-7042coicup 100 mg by subcutaneous injection rnfc350 mg, Subcutaneous, Once, On Radha 07/07/25 at 1600, For 1 doseStart: 07-07-2025 End: 36-91-8004Lzvkppyevr solution auto-injector 100 mgStart: 07-07-2025 End: 31-36-4900vudlfz 100 mg by subcutaneous injection frhu656 mg, Subcutaneous, Once, On Radha 07/07/25 at 1600, For 1 doseStart: 41-29-3527pxfczogcir (Tremfya) injection 100 mgStart: 03-10-2025 End: 05-17-8712yebmpwenqp (Tremfya) injection 100 mgStart: 03-10-2025 End: 75-59-6362soeoofrizq (Tremfya) injection 100 mgStart: 03-10-2025 End: 97-62-9157276 mg, Subcutaneous, Once, On Radha 03/10/25 at [...] to administering. Do not shake.Start: 03-10-2025 End: 30-41-7609100 mg, Subcutaneous, Once, On Radha 03/10/25 at [...] to administering. Do not shake.Start: 02-07-2025 End: 55-83-8259Fxwnxokfhm solution auto-injector 100 mgStart: 02-07-2025 End: 3771vdmowy 100 mg by subcutaneous injection vraq735 mg, Subcutaneous, Once, On 02/07/25 at 1600, For 1 doseStart: 02-01-2025 End: 74-18-9887Brsdpvzefe (Tremfya) 100 MG/ML solution auto-injector Indications: Plaque Psoriasis Inject 100 mg under the skin See administration instructions Inject 100 mg (contents of one pen) under the skin at week 0 and week 4. 2 mL 02/01/2025 03/02/2025 ActiveStart: 66-78-3468Mmmpgajztp (Tremfya) 100 MG/ML solution auto-injector Indications: Plaque Psoriasis Inject 100 mg un devi the skin every 8 (eight) weeks 1 mL 01/31/2025 Activeomeprazole 20 mg delayed release oral capsule (12 sources)Proton Pump Inhibitor End: 51-38-8711suytfxfjcv (PriLOSEC) [address] capsule 02/28/2025 Discontinued tretinoin 0.25 mg/ml topical cream (10 sources)RetinoidStart: 09-15-2024 End: 25-78-3757kcisquivq (Retin-A) 0.025 % cream Indications: Acne vulgaris Apply topically at bedtime Apply thin layer to face at bedtime 45 g 09/15/2024 02/28/2025 Discontinuedtriamcinolone acetonide 1 mg/ml topical cream (10 sources)CorticosteroidStart: 09-15-2024 End: 38-45-8833tcjgzutvjyfuq (Kenalog) 0.1 % cream Indications: Psoriasis vulgaris (CMS/HCC) Apply topically 2 (two) times a day as needed for rash 240 g 11 09/15/2024 02/28/2025 Discontinued Problems Active Problems Problem ClassificationProblemDateDocumented DateEpisodic/ChronicOther aftercare (10 sources)Taking high risk medication; Translations: [Other rat exterminator (current) drug therapy]64-85-4328EbknowrxKaygt female genital disorders (1 source)Abnormal uterine and vaginal bleeding, unspecified; Translations: [ABNORMAL UTERINE VAGINAL BLEED UNS]Onset: 63-49-7756OphokanVkexj inflammatory condition of skin (12 sources)Psoriasis vulgaris; Translations: [Psoriasis vulgaris]09-15-2024 ChronicOther skin disorders (4 sources)Acne vulgaris; Translations: [Acne vulgaris]20-64-9389Lffuxjis Substance-related disorders (1 source)Nicotine dependence, cigarettes, uncomplicated; Translations: [NICOTINE DEPEND CIGARETTES UNCOMP]Onset: 64-22-5927RfchbrvPojyetxxbtwa (3 sources)COUGH, UNSPECIFIED; Translations: [COUGH, UNSPECIFIED]Onset: 00-68-5788Askkorsiiyay (1 source)UNVACCINATED FOR COVID-19; Translations: [UNVACCINATED FOR COVID-19] Onset: 94-61-6780Sjvhjolewzok (4 sources)CONTACT W/AND (SUSP) EXPOS COVID-19; Translations: [CONTACT W/AND (SUSP) EXPOS COVID-19]Onset: 10-25-2022 Past or Other Problems Problem ClassificationProblemDateDocumented DateEpisodic/ChronicOther aftercare (1 source)Other rat exterminator (current) drug therapy; Translations: [OTH REGISTERED NURSE MATERNITY CURRENT DRUG THERAPY]Onset: 97-68-1903YupknjaxTcprx upper respiratory disease (1 source)Nasal congestion; Translations: [NASAL CONGESTION]Onset: 10-25-2022 EpisodicOther upper respiratory infections (1 source)Acute upper respiratory infection, unspecified; Translations: [ACUTE UP RESPIRATORY INFECTION UNS]Onset: 50-76-7467TqkdktcwNefkfudeoczt (1 source)COUGH, UNSPECIFIED; Translations: [COUGH, UNSPECIFIED]Onset: 40-36-0653Weectsvrilgn (1 source)CONTACT W/AND (SUSP) EXPOS COVID-19; Translations: [CONTACT W/AND (SUSP) EXPOS COVID-19]Onset: 84-84-2524Jqbszlz tract infections (1 source)Urinary tract infection, site not specified; Translations: [UTI SITE NOT SPECIFIED]Onset: 64-01-6393Xpkcqjgc Results Test NameValueInterpretationReference RangeFacilityIGP,APTIMA HPV,AGE GDLNon 18-90-9973CGS GDLN ACOG TESTINGNote.[facility] HealthcareComment on above:TESTS RESULT FLAG UNITS REF RANGE LAB Clinician Provided Cytology Information Source.............Cervix;Endocervix No. of containers..01 ThinPrep Vial Age Algo ACOG Marcia... FLAG LEGEND: L-Low Normal,H-High Normal,LL-Alert Low,HH-Alert High <-Panic Low,>-Panic High,A-Abnormal,AA-Critical Abnormal Performed at: 01 =G [facility], [place] [address] Priscila Majano MD, IGP, RFX APTIMA HPV ASCUNote.[facility] HealthcareComment on above:TESTS RESULT FLAG UNITS REF RANGE LAB DIAGNOSIS: 02 NEGATIVE FOR INTRAEPITHELIAL LESION OR MALIGNANCY. Specimen adequacy: 02 Satisfactory for evaluation. Endocervical and/or squamous metaplastic cells (endocervical component) are present. Performed by: Vanita Zelaya Podiatry Professor ([facility]) . 02 Note: Note 02 The Pap [...] <-Panic Low,>-Panic High,A-Abnormal,AA-Critical Abnormal Performed at: [address] [place] [address] Priscila Majano MD, Performed at: =G - [facility] [address], [place] [id number] [employer]: Priscila Majano MD, Phone: [phone] Performed at: - [facility] [id number] [employer]: Priscila Majano MD, Phone: [phone] BRUSH-SPATULA CERVIX ENDOCERVIX CLINISYNCNOOR HealthcareCytology Cervical or vaginal smear or scraping studyon 69-62-8617WIBXSSM Health CareALL CBC WITH AUTO DIFFon 97-24-0978OYALCVSOU ABSOLUTE AUTO0.0NOSt. Joseph Medical CenterBasophils/100 WBC (Bld)0.5 %0.2 - 2.0 %[facility] Eosinophils/100 WBC (Bld)4.9 %0.9 - 7.0 %[facility] Health CareErythrocyte distribution width (RBC) [Ratio]12.4 %11.0 - 15.0 %[facility] CareHematocrit (Bld) [Volume fraction]38.0 %36.0 - 48.0 %[facility] CareHemoglobin (Bld) [Mass/Vol]12.6 g/dL 12.0 - 16.0 g/dLSSM Health CareIMMATURE GRANULOCYTES ABS AUTO0.01NOSt. [facility] Immature granulocytes/100 WBC (Bld)0.1 %0.0 - 0.5 %[facility] CareInterpretation and review of laboratory resultsAbnormalSSM Health CareLYMPHOCYTES ABSOLUTE AUTO3.1NOMS [facility] HospitalLymphocytes/100 WBC (Bld)35.3 %20.5 - 60.0 %[facility]linH (RBC) [Entitic mass]28.1 pg26.7 - 34.0 pgMercy Hospital JoplinHC (RBC) [Mass/Vol]33.2 g/dL29.9 - 35.2 g/dLSSM Health CareMCV (RBC) [Entitic vol]84.8 fL 81.0 - 99.0 fLSSM Health CareMONOCYTES ABSOLUTE AUTO0.6NOSt. [facility] Medical Center Monocytes/100 WBC (Bld)7.1 %1.7 - 12.0 %[facility] Health CareNEUTROPHILS ABSOLUTE AUTO 4.6NOSt. Joseph Medical CenterNeutrophils/100 WBC (Bld)52.1 %43.0 - 75.0 %[facility] Platelet mean volume (Bld) [Entitic vol]8.8 fLLow9.5 - 13.5 fLSSM Health CareTB EO #0.4NOMS [facility] HospitalTB [id number] Hospital RBC4.48NOChristian Hospital WBC 8.8NOSt. Joseph Medical CenterCLINISYNCNOMS HealthcareCULTURE URINEon 63-00-4668VQHLNAH URINECulture Observations: MODERATE GROWTH OF MIXED GENITAL RASHIDA. NO POTENTIAL PATHOGENS SEEN.NormalThe [facility] Crille HospitalComment on above:Performed By: #### URCX #### [facility] [address] [address] [address] Crys Bishop URINE PROFILEon 57-22-3250Cdltgtcaj Ql (U)NegativeNormal NEGATIVESt. Mary'S Medical Center, Ironton CampusComment on above:Performed By: #### PREGU, UMICRO, ERUR #### [facility] [address] [address] [address] Crys Weathersarity (U)CLEARNormalCLEARSt. Mary'S Medical Center, Iront[place] CampusComment on above: Performed By: #### PREGU, UMICRO, ERUR #### [facility] [address] [address] [address] Crys Turner (U)LT. YELLOWNormalYELLOWSt. Mary'S Medical Center, Iront[place] CampusComment on above:Performed By: #### PREGU, UMICRO, ERUR #### [facility] [address] [address] [address] Crys CamachoSPANISH FORK [facility] micrscopic examination will be performed if indicated. NormalSt. Mary'S Medical Center, Ironton CampusCommclaren thumb region on above:Performed By: #### PREGU, UMICRO, ERUR #### [facility] [address] [address] [address] Crys HutchinsonGlucose Ql (U)NegativeNormalNEGATIVESt. Mary'S [facility], [facility] CampusComment on above:Performed By: #### PREGU, UMICRO, ERUR #### [facility] [address] [address] [address] Crys HutchinsonHemoglobin Ql (U)LARGEAbnormalNEGATIVEOhiohealth Grady Memorial Hospital on above:Performed By: #### PREGU, UMICRO, ERUR #### [facility] [address] [address] [address] Crys HutchinsonKetones Ql (U)NegativeNormalNEGATIVESt. Mary'S [facility], [facility] CampusComment on above:Performed By: #### PREGU, UMICRO, ERUR #### [facility] [address] [address] [address] Crys HutchinsonLEUKOCYTESTRACEAbnormalNEGATIVEThe [facility]negard HospitalComment on above:Performed By: #### PREGU, UMICRO, ERUR #### [facility] [address] [address] [address] Crys Nava Ql (U)NegativeNormalNEGATIVEThe [facility] Crille HospitalComment on above:Performed By: #### PREGU, UMICRO, ERUR #### [facility] [address] [address] [address] Crys HutchinsonpH (U)5.5 [pH]Normal5-9The [facility] Crille HospitalComment on above: Performed By: #### PREGU, UMICRO, ERUR #### [facility] [address] [place] [address] Dr. Crys HutchinsonSPEC GRAVITY1.946Tndeef5.005-<=1.025The [facility] Crille HospitalComment on above:Performed By: #### PREGU UMICRO, ERUR #### [facility] [address] [place] [address] Dr. Crys Parekh PROTEINNegativeNormalNEGATIVE/ TRACEThe [facility] Comment on above:Performed By: #### PREGU, UMICRO, ERUR #### [facility] [address] [place] [address] Dr. Crys Chadwick MICRO INDINDICATEDNormGuernsey Memorial HospitalComment on above: Performed By: #### PREGU, UMICRO, ERUR #### [facility] [address] [place] [address] Dr. Crys Puentebilinogen Qn (U)0.2 {Ryann'U}/dLNormal0.2 - 1.0The [facility] Cr[facility] HospitalComment on above:Performed By: #### PREGU, UMICRO, ERUR #### [facility] [address] [place] [address] Dr. Crys HutchinsonPREGNANCY URon 23-47-4869CVPIBTXZC, QUALNegativeNormalNEGATIVEThe [facility] HospitalComment on above:Performed By: #### PREGU, UMICRO, ERUR #### [facility] [address] [address] [address] Crys Huston MICROSCOPIC ONLYon 82-23-1791LCGVHSJUWMRMLOcbdvazyABRZ SEEN [facility] on above:Performed By: #### PREGU, UMICRO, ERUR #### [facility] [address] [address] [address] Crys Waite identified Cx Nom (U)INDICATEDNormalThe [facility] Crille HospitalCommclaren thumb region on above:Performed By: #### PREGU, UMICRO, ERUR #### [facility] [address] [address] [address] Crys GomesE SEENNormalNONE SEENProtestant Hospital on above:Performed By: #### PREGU, UMICRO, ERUR #### [facility] [address] [address] [address] Crys Isbellystals LM Nom (Urine sed)NONE SEENNormalNONE SEENThe [facility] on above:Performed By: #### PREGU, UMICRO, ERUR #### [facility] [address] [address] [address] Spangler ChangEpithelial cells LM Ql (Urine sed)FEWAbnormalNONE SEEN /RAREThe [facility] on above:Performed By: #### PREGU, UMICRO, ERUR #### [facility] [address] [address] [address] Crys BoswellCOUSNONE SEENNormalNONE SEENProtestant Hospital on above:Performed By: #### PREGU, UMICRO, ERUR #### [facility] [address] [address] [address] Crys CamachoOagjhJWY02-76Sukvgwkl3-3YmyProtestant Hospital on above: Performed By: #### PREGU, UMICRO, ERUR #### [facility] [address] [address] [address] Crys ZamoraBC2-5AbnormalNONE SEENThe [facility] HospitalComment on above: Performed By: #### ADDIEURIDGE, ERUR #### [facility] [address] [address] [address] Crys HutchinsonXR CHEST 1 Von [id number] CHEST 1 VEXAMINATION: XR CHEST 1 V HISTORY: Cough COMPARISON: None. TECHNIQUE: Portable chest FINDINGS: The lung parenchyma is free of consolidation or infiltrate. No pneumothorax or pleural effusion. The cardiac, mediastinal and hilar contours are normal. The visualized osseous structures exhibit no gross abnormality. IMPRESSION: Normal chest x-ray. Electronically authenticated by: JAC HOGUE Date: 2022-11-05 22:55NormUC West Chester Hospitale [facility] HospitalCovid-19 PCR (CVDTBH)on 67-58-1228UQFE-CoV-2 (COVID-19) RNA ALTAF+probe Ql (Unsp spec)Not detectedNormalNOT DETECTEDThe [facility] Comment on above:Result Comment: This test is not yet approved or cleared by the [place] FDA. When there are no FDA-approved or cleared tests available, and other criteria are met, FDA can make tests available under an emergency access mechanism called an Emergency Use Authorization (EUA). The EUA for this test is supported by the [place] of Health and Human Service's (HHS's) declaration [...] consistent with SARS-CoV-2.Performed By: #### CVDTBH #### [facility] [address] [address] [address] Crys HutchinsonGROUP A STREP CULTUREon 11-05-2022S. pyogenes Ag Ql (Unsp spec) Culture Observations: NEGATIVE FOR GROUP A STREPTOCOCCUS.NormalThe [facility] HospitalComment on above: Performed By: #### SSCRN, GRASTCX #### [facility] [address] [address] [address] Crys HutchinsonINFLHILARYZA A AND B AGon 93-89-7580POJAKZJRW A AGNegativeNormal NEGATIVE SEE COMMENTThe [facility] HospitalComment on above:Performed By: #### INFLUAB #### [facility] [address] [place] [address] Dr. Crys HutchinsonINFLABY B AGNegativeNormalNEGATIVE SEE COMMENTThe [facility] HospitalComment on above:Performed By: #### INFLUAB #### [facility] [address] [place] [address] Dr. Crys HutchinsonSTREPT SCREENon 24-15-0714TZPFE SCREEN ANegativeNormalNEGATIVEThe [facility] HospitalComment on above:Performed By: #### SSCRTameka, GRASTCX #### [facility] [address] [place] [address] Dr. Crys HutchinsonCovid-19 PCR ([facility])on 97-87-2027JJCD-CoV-2 (COVID-19) RNA ALTAF+probe Ql (Unsp spec)Not detectedNormalNOT DETECTEDThe [facility] Comment on above:Result Comment: This test is not yet approved or cleared by the [place] FDA. When there are no FDA-approved or cleared tests available, and other criteria are met, FDA can make tests available under an emergency access mechanism called an Emergency Use Authorization (EUA). The EUA for this test is supported by the [place] of Health and Human Service's (HHS's) declaration [...] symptoms consistent with SARS-CoV-2.Performed By: #### RIDGE CHRISTIEN ERUR #### [facility] [address] [place] [address] Dr. Crys Gupta AND B AGon 49-76-0127EGMFBZVYCFZRJThe [facility] on above:Result Comment: Negative for Flu A protein angiten. Infection due to Flu A cannot be ruled out. FluA angiten in the sample may be below the detection limit of the test.Performed By: #### INFLUAB #### [facility] [address] [place] [address] Dr. Crys BearUBNEGHSWayne HealthCare Main Campus on above: Result Comment: Negative for Flu B protein antigen. Infection due to Flu B cannot be ruled out. FluB antigen in the sample may be below the detection limit of the test.Performed By: #### INFLUAB #### [facility] [address] [place] [address] Dr. Crys Gupta AGNegativeNormalNEGATIVE SEE COMMENTThe [facility] on above:Performed By: #### INFLUAB #### [facility] [address] [place] [address] Dr. Crys Meadows AGNegativeNormalNEGATIVE SEE COMMENTThe [facility] on above:Performed By: #### INFLUAB #### [facility] [address] [place] [address] Dr. Crys HutchinsonINTERNAL CONTROLSWithin Normal LimitsNormalWithin Normal Limits The [facility] on above:Performed By: #### INFLUAB #### [facility] [address] [place] [address] Dr. Crys Hutchinson Vital Signs Date TimeVital SignValuePerforming PzupqkwrpBpxaydkw85-44-1534 15:58-0400Body mass index (BMI) [Ratio]34.78 kg/l6Hpahn Kisha DO Work Phone: [facility] CareXunjwsdtgz32-87-1867 15:58-0400Body siwaqt37.8 kg Kristen Kisha DO Work Phone: [facility] CareOupcimffrf19-16-5452 15:58-0400Diastolic blood ywtxjdog45 mm[Hg]Kristen Kisha DO Work Phone: [facility] Lthnqezfbr30-78-5300 15:58-0400Systolic blood dfajvxaz745 mm[Hg]Kristen Kisha DO Work Phone: [facility] Encounters Encounter DateEncounter TypeCare ProviderFacilityStart: 09-01-2025 End: 56-69-8372Wbeyye outpatient visit 5 minutesRylee Northeim PA Work Phone: [facility] Mann DermatologyComment on above:Psoriasis vulgaris (Primary Dx); High risk medication useStart: 09-01-2025 End: 32-44-2790ygbtvlxefiEXBPZ NORTHEIMNot AvailableStart: 09-01-2025 End: 88-88-6618Akyxct flowsheetRylee Northeim PA Work Phone: [facility] DermatologyStart: 09-01-2025 End: 38-61-5760Cudfba flowsheetRylee Northeim PA Work Phone: [facility] DermatologyStart: 07-07-2025 End: 37-44-1158Cffwsl outpatient visit 5 minutesRylee Northeim PA Work Phone: [facility]enzie DermatologyComment on above:Psoriasis vulgaris ; High risk medication useStart: 07-07-2025 End: 06-65-2529kbsitvaipyOTZHL NORTHEIMNot AvailableStart: 05-05-2025 End: 09-61-2793Nziexx outpatient visit 5 minutesRylee Northeim PA Work Phone: [facility] SWS DERMComment on above:Psoriasis vulgaris (Primary Dx); High risk medication useStart: 05-05-2025 End: 02-37-7528knctikidcpQTTFC NORTHEIMNot AvailableStart: 05-05-2025 End: 23-79-8758Tkijzj flowsheetRylee Northeim PA Work Phone: [facility] SWS DERMStart: 05-05-2025 End: 98-13-9552Fcmjby flowsheetTSAT GroupSouthPointe Hospital PA Work Phone: noms SWS DERMStart: 03-10-2025 End: 16-99-0134Mbhlpo outpatient visit 5 minutesRylee [facility] PA Work Phone: [facility] SWS DERMComment on above:Psoriasis vulgaris (CMS/HCC) (Primary Dx); High risk medication useStart: 03-10-2025 End: 57-75-4855anvxhjyywoSKWVU NORTHMNot AvailableStart: 03-10-2025 End: 94-67-2657Cngwfy flowsheetMemphis Va [facility] Center PA Work Phone: NOJR SWS DERMStart: 03-10-2025 End: 05-93-6818Ltogzv flowsheetMemphis Va Medical Center PA Work Phone: noms SWS DERMStart: 02-28-2025 End: 56-41-6402Bpdjcfo encounter procedureCorey Kisha DO Work Phone: [facility] HealthcareStart: 02-28-2025 End: 63-80-1182Thbimowb preventive med est patient 18-39 yrsCorey Kisha DO Work Phone: [facility] BCP OBComment on above:Well woman exam with routine gynecological examStart: 02-28-2025 End: 85-24-9666vkoeailuhvNVODV FAZIONot AvailableStart: 02-28-2025 End: 30-17-7961Qooskr flowsheetCorey Kisha DO Work Phone: [facility] BCP OBStart: 02-28-2025 End: 71-38-7606Jhdgxe flowsheetCorey Kisha DO Work Phone: [facility] BCP OBStart: 02-28-2025 End: 02-29-7576Icfzysidh Result EncounterCorey Kisha DO Work Phone: [facility] External Department UnsolicitedStart: 02-07-2025 End: 76-97-7539Dgxtqu outpatient visit 5 minutesNatalie A Felter INSTRUMENTATION AND CONTROLS DESIGNER-DISABILITY BENEFITS SPECIALIST Work Phone: [facility] SWS DERMComment on above:Psoriasis vulgaris (CMS/HCC); High risk medication useStart: 02-07-2025 End: 69-67-8475snfhulbwoySVRDHQT A FELTERNot AvailableStart: 02-07-2025 End: 23-13-2847Rravqa flowsheetNatalie A Felter INSTRUMENTATION AND CONTROLS DESIGNER-DISABILITY BENEFITS SPECIALIST Work Phone: [facility] SWS DERMStart: 02-07-2025 End: 88-83-1768Lpepfy flowsheetNatalie A Felter INSTRUMENTATION AND CONTROLS DESIGNER-DISABILITY BENEFITS SPECIALIST Work Phone: [facility] SWS DERMStart: 11-15-2024 End: 54-68-6479Hhtgan flowsheetRylee [facility] PA Work Phone: [facility] SWS DERMStart: 11-15-2024 End: 47-96-0792Slcseg flowsheetRye [facility] PA Work Phone: [facility] SWS DERMStart: 11-15-2024 End: 38-80-6299Acwauv outpatient [facility] Work Phone: [facility] SWS DERMComment on above:Psoriasis vulgaris (CMS/HCC) (Primary Dx); High risk medication use; Acne vulgarisStart: 11-15-2024 End: 56-06-0161eayanjvlhoKXOMS NORTHEIMNot AvailableStart: 09-15-2024 End: 03-67-7278Pyqgcs flowsheetlee [facility] PA Work Phone: [facility] SWS DERMStart: 09-15-2024 End: 07-01-4473Kxzhpd flowsheetRylee [facility] PA Work Phone: [facility] SWS DERMStart: 09-15-2024 End: 78-01-0168Vebycd outpatient new 45 minutesMem[facility] Work Phone: [facility] SWS DERMComment on above:Psoriasis vulgaris (CMS/HCC); Acne vulgarisStart: 09-15-2024 End: 75-03-3453dogwxnumhbJPCWP NORTHEIMNot AvailableStart: 91-26-6586Uevqnmgza Result EncounterCorey Kisha DO Work Phone: noms External Department UnsolicitedStart: 12-11-2023 Clinisync Result EncounterCorey Kisha DO Work Phone: noms External Department UnsolicitedStart: 12-10-2023 Chart abstractingCorey Kisha DO Work Phone: NOMS BCP OBStart: 37-39-5786woymaxcxylXV SAJI MICHELLE . Facility:B8Fmldd: 11-07-2022 End: 48-83-4857thzwvemhdkFI VIVIAN Welch DENICEFacility:P2Dlhlf: 11-05-2022 End: 93-77-8730hksijvebmdIV SAJI MICHELLE .Facility:R1Mwzau: 10-22-2022 End: 41-35-6307jmvzkotwbjQEZEGR CRAMERFacility:Y1Bshdc: 12-31-2018 End: 54-58-2763Ujhhezu encounter procedureJodeb ZazuetaFacility:CD:[id number] Procedures DateProcedureProcedure DetailPerforming ClinicianStart: 92-88-9486GCN,APTIMA HPV,AGE GDLNCorey Kisha DO Work Phone: Start: 97-05-2864Pxrd cerv/vag auto thin layer prep mnl screenCorey Kisha DO Work Phone: Start: 12-31-2215KON CBC WITH AUTO DIFFCorey Kisha DO Work Phone: Plan of Treatment DateCare ActivityDetailAuthorStart: 03-06-2026 End: 88-54-9176Jfwdesx encounter procedureNOMS BCP OBStart: 11-02-2025 End: 48-30-6305Wllhrvy encounter /07/2026 3:00 PM EST Office [facility] [address] [place] [address] Annette Baez PA [address] [place] [address] NOMReynaldo Mann DermatologyStart: 09-01-2025 End: 36-26-2216Zsacosm encounter procedureNOMS Mackenzie DermatologyComment on above:ArrivedStart: 07-07-2025 End: 41-68-3239Nipxeec encounter vdlknomtg05/11/2025 3:50 PM EDT Office Visit [facility] DERM [address] [place] [address] Annette Baez PA [address] [place] [address] NOM[facility] SWS DERMStart: 05-05-2025 End: 51-47-9645Yckbefi encounter procedureNOMS SWS DERMComment on above:Arrived Start: 03-15-2025 End: 36-62-6102Fyxdvsw encounter xzpaoprnm11/20/2025 8:50 AM EDT Office Visit [facility] [address] [place] [address] Annette Baez, JACKSON [address] [place] [address] NOMS SWS DERMStart: 03-10-2025 End: 80-46-5031Fkividn encounter procedureNOMS SWS DERMComment on above:Arrived Start: 02-28-2025 End: 17-24-7521Cxrrsvc encounter procedureNOMS BCP OBComment on above:Arrived Start: 02-07-2025 End: 32-21-6155Rquvvrfy Tinlnuk0202/07/2025 3:35 PM EDT Clinical Support [facility] [address] [place] [address] Micheline Souza APRN-TIM [address] [place] [address] ( Work) ArrivedNOMS SWS DERMComment on above:ArrivedStart: 11-15-2024 End: 34-06-9676Cqctmwz aminotransferase [Enzymatic activity/volume] in Serum or PlasmaALT Lab Routine Psoriasis vulgaris (CMS/HCC) High risk medication use Expected: 11/15/2024 (Approximate), Expires: [facility]/2025[facility] HealthcareComment on above:Expected: 11/15/2024 (Approximate), Expires: 11/15/2025Start: 11-15-2024 End: 61-32-5910Naceoqiyq aminotransferase [Enzymatic activity/volume] in Serum or PlasmaAST Lab Routine Psoriasis vulgaris (CMS/HCC) High risk medication use Expected: 11/15/2024 (Approximate), Expires: 11/15/2025[facility] HealthcareComment on above:Expected: 11/15/2024 (Approximate), Expires: 11/15/2025Start: 11-15-2024 End: 01-48-0701IKG W Auto Differential panel - BloodCBC and differential Lab Routine Psoriasis vulgaris ([facility]/HCC) High risk medication use Expected: (Approximate), Expires: 11/15/2025[facility] HealthcareComment on above: Expected: 11/15/2024 (Approximate), Expires: 11/15/2025Start: 11-15-2024 End: 93-70-7257Edejtonim B virus surface Ag [Presence] in Serum or Plasma by ImmunoassayHepatitis B surface antigen Lab Routine Psoriasis vulgaris ([facility]/HCC) High risk medication use Expected: 11/15/2024 (Approximate), Expires: 11/15/2025 [facility] HealthcareComment on above:Expected: 11/15/2024 (Approximate), Expires: 11/15/2025Start: 11-15-2024 End: 74-70-1558Cmnivgvnk C virus Ab [Presence] in Serum or Plasma by Immunoassay Hepatitis C antibody Lab Routine Psoriasis vulgaris (CMS/HCC) High risk medication use Expected: 11/15/2024 (Approximate), Expires: 11/15/2025[facility] HealthcareComment on above:Expected: 11/15/2024 (Approximate), Expires: 11/15/2025Start: 11-15-2024 End: 66-75-2457HFU 1 RNA,QL REAL TIME PCRHIV 1 RNA,QL REAL TIME PCR Lab Routine Psoriasis vulgaris (CMS/HCC) High risk medication use Expected: 11/15/2024 (Approximate), Expires: 11/15/2025[facility] HealthcareComment on above:Expected: 11/15/2024 (Approximate), Expires: 11/15/2025Start: 11-15-2024 End: 97-46-9228XFKSUETANJV TB GOLDNOMS Healthcare Work Phone: comment on above:Expected: 11/15/2024 (Approximate), Expires: 11/15/2025Start: 11-15-2024 End: 51-81-5330Uaewisf encounter procedureNOMS SWS DERMComment on above:Arrived Start: 09-15-2024 End: 57-50-7578Helabxp encounter ojptyxbvs27/20/2024 8:40 AM EST Office Visit [facility] [address] [place] [address] Annette Baez PA [address] [place] [address] ArrivedNOMS SWS DERMComment on above:ArrivedStart: 02-18-2024 End: 42-94-3354Zaddocs encounter /24/2024 3:00 PM EDT Office Visit [facility] [address] [place] [address] Kristen Beard, DO [address] [place], [place] [phone] NOMS BCP OBStart: 12-11-2023 End: 38-32-9051Bwhfxyg encounter /15/2024 9:00 AM EST Office Visit [facility] [address] [facility] [place] [address] Kristen Beard, DO [address] [place], [place] [phone] Irregular periods/menstrual cycles; Crampy pain associated with mensesNOMS BCP OBComment on above:Irregular periods/menstrual cycles; Crampy pain associated with mensesCytology Cervical or vaginal smear or scraping studyPap Smear Pathology and Cytology Routine Well woman exam with routine gynecological exam Ordered: 02/28/2025[facility] Work Phone: comment on above:Ordered: 02/28/2025 Payers DatePayer CategoryPayerPolicy [id number] Member Subscriber Plan / Payer (Effective 2023-Present) Name: Maria C Flores Relation to Subscriber: Spouse Name: Devin Flores Dateof : 1991 Address: [facility] [address] [place] [address] Payer ID: Not on file Type: Not on file Address: [id number] [place], [place] [id number] [facility] [id number] 2023-Present [phone] [place], [place] [id number] Private Health By[id number] 2.840.1.372004.3.579.2.727 [id number] 2.840.1.407793.3.57[id number] 2.840.1.370539.3.57[id number] 2.0.1.945737.3.57[id number] 2.16.840.1.559569.3.57[id number] 2.16.840.1.424765.3.57[id number] 2.16.840.1.815602.3.57[id number] 2.16.840.1.869025.3.57[id number] 2.16.840.1.796729.3.57[id number] 2.16.840.1.336728.3.57[id number] 2.16.840.1.657597.3.57[id number] 2.16.840.1.415888.3.57[id number] 2.16.840.1.146466.3.579.2.540121-74-9943Bulo-xew05245338935-93-6254Plxjwlc [id number] Social History DateTypeDetailFacilityStart: 12-10-2023 End: 32-66-8734Afheoxn smoking status NHISTobacco smoking consumption unknown [facility] HealthcareStart: 12-10-2023 End: 52-39-1381Bilvbkx intakeEx-drinker (finding)[facility] HealthcareStart: 81-92-4071Ddfcjok Comment* current smoker frequency unknownNOOR HealthcareStart: 80-82-4908Hafgagq CommentRecently quitNOMS HealthcareStart: 51-17-2700Juw Assigned At BirthNot on fileNOOR HealthcareStart: 92-57-6542Wgtgfs identityNot on [facility] HealthcareStart: 29-98-0814Llwtjmp smoking status NHISNever smoked tobaccoNOMS HealthcareStart: 49-58-9786Nvhrxfp use and exposureSmokeless tobacco non-userNOOR HealthcareStart: 73-82-1225Xdszbnj of Social functionNOOR HealthcareStart: 78-07-0009PklMskomdYLYG Healthcare Clinical Notes 09-15-2024 to 09-01-2025 Note Date & MsphDqzpGeshuwwx09-72-0422 History of Present illness Narrative* JACKSON Sargent [...] injection and follow up documented in this encounterSSM Health CareAzxqvtlleb24-28-5965 History of Present illness Narrative* JACKSON Sargent [...] Next Visit: 09/01, INJECTION documented in this encounterSSM Health CareBsychvhpts84-60-7372 History of Present illness Narrative* JACKSON Sargent [...] Location: right thigh Expiration: 06/27/2026 Lot #: [id number] Plan to follow up in 8 weeks for next injection. Related Medications Guselkumab (Tremfya) 100 MG/ML solution auto-injector Inject 100 mg under the skin every 8 (eight) weeks guselkumab (Tremfya) injection 100 mg 2. HIGH RISK MEDICATION USE Related Medications guselkumab (Tremfya) injection 100 mg Next Visit: 2 months documented in this encounterSSM Health CareIlamsopdqg15-78-7961 History of Present illness Narrative* JACKSON Sargent [...] Next Visit: as scheduled. documented in this encounterSSM Health CareQezotpsvqn30-62-9449 History of Present illness Narrative* Fallon Davidson, CLINIC PHYSICIAN DIRECTOR - 02/28/2025 4:00 PM EDT Reason for [...] Medical History: Diagnosis Date Anxiety and depression ([facility]) Contraceptive education Current smoker Hip pain Morbid obesity with BMI of 50.0-59.9, adult [place] Pap smear for cervical cancer screening 2019 Pubic bone pain HISTORY PAST MEDICAL HISTORY SOCIAL HISTORY Past Medical History: Diagnosis Date Anxiety and depression ([facility]) Contraceptive education Current smoker Hip pain Morbid obesity with BMI of 50.0-59.9, adult ([facility]) Pap smear for cervical cancer screening [...] nursing note reviewed. Exam conducted with a food service supervisor present. Vitals: Estimated body mass index is [...] of: Kristen Beard DO documented in this encounterSSM Health CareEgqrqsrwca38-04-0915 History of Present illness Narrative* Micheline Souza [...] 4 weeks, injection tremfya documented in this encounterSSM Health CareDzultuibsb26-40-4251 History of Present illness Narrative* Annette Baez, [...] is candidate for injectable biologic medication as rat exterminator use of topical steroids in contraindicated. Discussed [...] months (psoriasis follow up) documented in this encounterSSM Health CareNechusqqqu92-26-6277 History of Present illness Narrative* JACKSON Sargent [...] Next Visit: 2 months documented in this encounterNOOR HealthcareEvaluation note* Diagnosis Psoriasis vulgaris (CMS/HCC) Other [...] section and content) DATE CREATED AUTHOR 01/02/2019 [facility] DATE CREATED AUTHOR AUTHOR'S ORGANIZ ATION 02/28/2023 [facility] DATE CREATED AUTHOR AUTHOR'S ORGANIZ ATION 09/03/2025 [facility] EPIC Care Teams (unrecognized sec tion and content) Team MemberRelationshipSpecialtyStart DateEnd Date Saji Mays MD [address] [place] [address] PCP - GeneralFamily Medicine12/11/23Team MemberRelationshipSpecialtyStart DateEnd Date Saji Mays MD [address] [place] [facility] [address] PCP - GeneralFamily Medicine12/11/23Team MemberRelationshipSpecialtyStart DateEnd Date Saji Mays MD [address] [place] [facility] [address] PCP - GeneralFamily Medicine12/11/23Team MemberRelationshipSpecialtyStart DateEnd Date Saji Mays MD [address] [place] [facility] [place] [address] PCP - GeneralFamily Medicine12/11/23Team MemberRelationshipSpecialtyStart DateEnd Date Saji Mays MD [address] [place] [facility] [address] PCP - GeneralFamily Medicine12/11/23Team MemberRelationshipSpecialtyStart DateEnd Date Saji Mays MD [address] [place] [facility] [address] PCP - GeneralFamily Medicine12/11/23Team MemberRelationshipSpecialtyStart DateEnd Date Saji Mays MD PCP - GeneralFamily Medicine12/11/23Team MemberRelationshipSpecialtyStart DateEnd Date Saji Mays MD PCP - GeneralFamily Medicine12/11/23Team MemberRelationshipSpecialtyStart DateEnd Date Saji Mays MD PCP - [facility]12/11/23Te MemberRelationshipSpecialtyStart DateEnd Date Saji Mays MD [address] [place] [facility] [place] [address] PCP - [facility]12/11/23Te MemberRelationshipSpecialtyStart DateEnd Date Saji Mays MD [address] [place] [facility] [address] PCP - [facility]12/11/23Te MemberRelationshipSpecialtyStart DateEnd Saji Mays MD [address] [place] [facility] [place] [address] PCP - [facility]12/11/23Te MemberRelationshipSpecialtyStart DateEnd Saji Mays MD [address] [place] [facility] [address] PCP - [facility]12/11/23 Reason for Visit (unrecogniz ed section and [...] BE BASED ON THE PRIMARY CLINICAL RECORDS. [facility] [employer] [facility]. provides no warranty or guarantee of the accuracy or completeness of information in this document.
[2025-10-04] MEDS: MAGNESIUM OXIDE 400 MG TABLET PO (16:39)
[2025-10-04] MEDS: FLECAINIDE ACETATE 50 MG TABLET PO (16:39)
== END 2025-10-04 16:48 | disposition home or self-care (01) ==
PROVIDERS: Emergency Provider Emergency Medicine; PCP Family Medicine
DX: I47.10 Supraventricular tachycardia, unspecified (principal); E83.42 Hypomagnesemia
CPT/HCPCS: 36415; 71045; 80053; 83735; 84443; 84484; 84703; 85025; 93005; 99284

== ENCOUNTER 2025-10-26 09:43 | Outpatient (OUT) | payer BC, SELFPAY ==
--- OUTSIDE RECORDS SUMMARY | 2024-10-14 11:30 | XMS_ITS ---
Demographics Address [address] [place] [address] Mobile Email Address Preferred Language en Marital Status Rastafarian Affiliation Unknown Race White Ethnic Group Not or Lati no Author Organization [facility] [place] Address [address] [place] [address] Support Name Relationship Address Phone Kathrine Ernst Emergency Contact [address] [place] [address] Maria C Flores Guarantor Unknown [phone] Care Team Providers Care Marketing Project Coordinator Name Role Phone Joce Mays Primary Care Provider REASON FOR VISIT diet Encounters Encounter Location Date Provider Diagnosis [facility] [address] [place] [address] 10/14/2024 Joce Mays Plan Of Treatment No Information Progress Notes * Maria C FLORES MDOB: [birth year] (30 yo F)Acc No.[id number]:10/14/2024 UNLOCKED PROGRESS NOTE Progress Note Patient: Maria C SAN :?Nazario Mays (TTC), MDDOB:1995???Age: 29 Y???Sex:FemaleDate:4Phone:[phone]:[address] [place], [place]-[address] Subjective: * Chief Complaints: * 1 . Diet. * Medical History: Objective: * Vitals: Assessment: Plan: * Treatment: * * Electronic signature of Joce Mays MD, [phone] on 10/26/2025 at 09:45 AM EST Sign off status: PendingVisit Status:?CANC (Cancelled) * Provider: Maximino Mays MD (TTC) Date: 12/15/2023 Generated for Printing/Faxing/eTransmitting on:?10/26/2025 09:45 AM EST
--- OUTSIDE RECORDS SUMMARY | 2025-04-25 03:30 | XMS_ITS ---
Demographics Address [address] [place] [address] Mobile Email Address Preferred Language en Marital Status Buddhism Affiliation Unknown Race White Ethnic Group Not or Lati no Author Organization [facility] [place] Address [address] [place] [address] Support Name Relationship Address Phone Kathrine Ernst Emergency Contact [address] [place] [address] Maria C Flores Guarantor Unknown [phone] Care Team Providers Care Cord Tire Builder Name Role Phone Joce Mays Primary Care Provider [phone] REASON FOR VISIT 1MON Encounters Encounter Location Date Provider Diagnosis [facility] [address] [place] [address] 04/25/2025 Joce Mays Plan Of Treatment No Information Progress Notes * DANN Maria C MDOB: [birth year] (30 yo F)Acc No.[id number]:04/25/2025 UNLOCKED PROGRESS NOTE Progress Note Patient: Maria C SAN :?Nazario Mays (TTC), MDDOB:1995???Age: 29 Y???Sex:FemaleDate:04/25/2025Phone:[phone]:[address] [place], [place]-[address] Subjective: * Chief Complaints: * 1 . 1MON. * Medical History: Objective: * Vitals: Assessment: Plan: * Treatment: * * Electronic signature of Joce Mays MD, [id number] on 10/26/2025 at 09:45 AM EST Sign off status: PendingVisit Status:?OFF CANC (OFFICE CANCEL) * Provider: Maximino Mays MD (TTC) Date: 0 04/25/2025 Generated for Printing/Faxing/eTransmitting on:?10/26/2025 09:45 AM EST
--- OUTSIDE RECORDS SUMMARY | 2025-10-26 09:45 | XMS_ITS | Clinical Summary ---
Author Organization [facility] Address [address] [place] [address] Care Team Providers Care Pattern And Chain Maker Name Role Phone Nazario Mays MD Primary Care Provider [phone] Allergies Active AllergyReactionsCriticalityNoted DateComments Sulfamethoxazole-PodteeyullqnNhofqke59/12/2024 Other Reaction(s): never taken, family is allergic Medications MedicationSigDispense QuantityRefillsLast FilledStart DateEnd DateStatus ondansetron (Zofran) 4 MG tablet Take 4 mg by mouth Daily as [id number] Guselkumab (Tremfya) 100 MG/ML solution auto-injector Indications:Plaque PsoriasisInject 100 mg under the skin every 8 (eight) weeks 1 mL 1105Active citalopram (CeleXA) 40 MG tablet Take 40 mg by mouth Daily5Active Cholecalciferol (Vitamin D3) 2400 UNIT/ML liquid as directedActive MAGNESIUM 4 MUSCLES MagnesiumActive Zinc 10 MG lozenge ZincActive calcium citrate (Calcitrate) 950 (200 Ca) MG tablet Take 475 mg by mouth DailyActive phentermine (Adipex-P) 37.5 MG tablet Take 37.5 mg by mouth in the morning. Take before meals.5Active Hospital, Clinic, or Other Facility Administered MedicationOrdered DoseRoute FrequencyStart DateEnd DateStatus guselkumab (Tremfya) injection 100 mg Indications:Psoriasis vulgaris,High risk medication nfo435 yxCBGpzm23/10/2025 Active Active Problems No known active problems Encounters DateTypeDepartmentCare CthyFqmtwipxarc44/06/2025 3:30 PM ESTOffice Visit [facility] [address] [place] [address] Marianne Baez PA Psoriasis vulgaris (Primary Dx); High risk medication use09/01/2025amboo flowsheet [facility] [address] [place] [address] Marianne Baez PA 09/01/2025Travelfrom Last 3 Months Family History Medical HistoryRelationNameCommentsHeart diseaseFatherHypertensionFatherDiabetes Maternal GrandfatherCancerMaternal GrandmotherHeart diseasePaternal Grandfather HypertensionPaternal GrandfatherRelationNameStatusCommentsFatherMaternal GrandfatherMaternal GrandmotherPaternal GrandfatherSonAlive Social History Tobacco UseTypesPacks/DayYears UsedDateSmoking Tobacco: NeverSmokeless Tobacco: Never Tobacco Cessation:Counseling Given: Not Answered Comments:* current smoker frequency unknown Alcohol UseStandard Drinks/WeekCommentsNot Currently0 (1 standard drink = 0.6 oz pure alcohol)Recently quitCommentsNoSex and Gender InformationValueDate RecordedSex Assigned at BirthNot on fileLegal QmbTbfjzt60/15/2023 11:47 PM EDT Gender IdentityNot on fileSexual OrientationNot on file Last Filed Vital Signs Vital SignReadingTime TakenCommentsBlood Mgevyycx233/8005 3:58 PM EDT Pulse--Temperature--Respiratory Rate--Oxygen Saturation--Inhaled Oxygen Concentration--Radolw71.8 kg (209 lb)02/28/2025 3:58 PM QNHFtmiqx175.1 cm (5' 5 )12/11/2023 9:07 AM ESTBody Mass Index34.78012/11/2023 9:07 AM EST Plan of Treatment DateTypeDepartmentCare Team (Latest Contact Info)Ejkrskqdnca62/07/2026 3:00 PM ESTOffice Visit [facility] [address] [place] [address] Marianne Baez PA [address] [place] [address] 03/06/2026 4:00 PM EDTOffice Visit [facility] [place] [facility] [address] [place] [address] Dallas Beard DO [address] [place], [place] [id number] Insurance * Guarantor: Lisa Flores TypeRelation to PatientDate of BirthPhone Billing AddressPersonal/NycdsaTbqj1997 [address] [place] [address] * Guarantor: Lisa Flores TypeRelation to PatientDate of BirthPhone Billing AddressPersonal/UwybzmTlxg1997 [address] [place] [address] Care Teams Team MemberRelationshipSpecialtyStart DateEnd Nazario Mays MD [address] [facility] [place] [address] PCP - GeneralFamily Medicine12/11/23
--- OUTSIDE RECORDS SUMMARY | 2025-10-26 09:45 | XMS_ITS | Patient Health Record ---
Author Organization [facility] in [place] Address [address] [place] [address] Support Name Relationship Address Phone Kathrine Ernst Emergency Contact [address] [place] [address] Maria C Flores Guarantor Unknown [phone] Care Team Providers Care Aqued[employer] And Reservoir Keeper Name Role Phone Joce Mays Primary Care Provider [phone] Candi Hilliard Unavailable [phone] Allergies Allergen (clinical drug ingredient) Drug/Non Drug Allergy documented on EMR Reaction Allergy Type Onset Date Status sulfamethoxazole / trimethoprim Bactrim never taken, family is allergic Drug Allergy Active Results Component Value Reference Range Notes QuantiFERON-TB Gold Plus Reviewed date:11/27/2024 04:34:38 PM Interpretation: Performing Lab: Notes/Report: [facility] , QuantiFERON Incubation . Reference Range: . Incubation performed. QuantiFERON-TB Gold PlusNegativeNegative reference range is an Antigen minus Nil result of <0.35 Performed at: [address] [phone] individuals should be considered for additional testing Contact Lens Molder: Joaquin Levine PhD, Phone: [phone] IU/mL. No response to M tuberculosis antigens detected. Chemiluminescence immunoassay methodology Infection with M tuberculosis is unlikely, but high risk (ATS/IDSA/CDC Clinical Practice Guidelines, 2017). The QuantiFERON CriteriaComment. QuantiFERON-TB Gold Plus is a qualitative indirect test for subtracting the Nil value from either TB antigen (Ag) radiography, and other medical and diagnostic evaluations. The QuantiFERON-TB Gold Plus result is determined by M tuberculosis infection (including disease) and is intended for use in conjunction with risk assessment, value. The Mitogen tube serves as a control for the test. QuantiFERON TB1 Ag Value0.01. IU/mLQuantiFERON TB2 Ag Value0.02. IU/mL QuantiFERON Nil Value0.01. IU/mLQuantiFERON Mitogen Value>10.00. IU/mLPerforming Lab:see noteLC - [facility] LBCBC AUTO DIFF Reviewed date:10/04/2025 04:21:14 PM Interpretation: Performing Lab: Notes/Report: [facility] ,White Blood Count12.14.0-11.0 10 3/uLRed Blood Count4.634.20-5.40 10 6/uL Hrcmjdtolp87.712.0-16.0 g/zGEyjtyudlvi44.136.0-48.0 %Mean Corpuscular Dpwija15.6 81.0-99.0 fLMean Corpuscular Umjqeqkbuz23.626.7-34.0 pgMean Corpuscular HGB Conc 34.229.9-35.2 g/dLRed Cell Distribution Width12.511.0-15.0 %Platelet Jgbhr805 150-450 10 3/uLMean Platelet Volume8.99.5-13.5 fLNeutrophils Percent Auto69.4 43.0-75.0 %Lymphocytes Percent Auto21.820.5-60.0 %Monocytes Percent Auto5.11.7- 12.0 %Eosinophils Percent Auto2.80.9-7.0 %Basophils Percent Auto0.50.2-2.0 % Immature Granulocytes Pct Auto0.40.0-0.5 %Neutrophils Absolute Auto8.41.4-6.5 10 3/uLLymphocytes Absolute Auto2.71.2-3.8 10 3/uLMonocytes Absolute Auto0.60.3-0.8 10 3/uLEosinophils Absolute Auto0.30.0-0.7 10 3/uLBasophils Absolute Auto0.10.0- 0.1 10 3/uLImmature Granulocytes Abs Auto0.050.00-0.03 10 3/uLPerforming Lab:see noteML - [facility] LBMAGNESIUM Reviewed date:10/04/2025 04:21:14 PM Interpretation: Performing Lab: Notes/Report: [facility] ,Magnesium1.61.8-2.4 mg/dLPerforming Lab:see noteML - [facility] LB PROF 14(COMP METB) Reviewed date:10/04/2025 04:21:14 PM Interpretation: Performing Lab: Notes/Report: [facility] ,Ydraca406078-568 mmol/LPotassium3.83.5-5.1 mmol/QTnebpgnq87479-332 mmol/LCarbon Xahmtto98.421.0-32.0 mmol/LAnion Gap15.1Oaphayo3979-322 mg/dLBlood Urea Nitrogen 7.07.0-18.0 mg/dLCreatinine0.780.55-1.02 mg/dLEstimated GFR ( Marlena>60 >=60 mL/min/1.73m 2Estimated GFR (Non- Nickie>60>=60 mL/min/1.73m 2BUN Creatinine Ratio9.1Qiwfwxo6.68.5-10.1 mg/dLBilirubin Total0.50.2-1.0 mg/dL Aspartate Amino Mmfosusvwcy0148-13 U/LAlanine Pvpaeyndtnqbbuzg8574-80 U/L Alkaline Sxettkbiwlj8623-343 U/LTotal Protein6.56.4-8.2 g/dLAlbumin Level3.43.4- 5.0 g/dLGlobulin3.1Albumin Globulin Ratio1.1Performing Lab:see noteML - [facility] LBTS Reviewed date:10/04/2025 04:21:14 PM Interpretation: Performing Lab: Notes/Report: [facility] ,Thyroid Stimulating Hormone1.6250.358-3.740 uIU/mLPerforming Lab:see noteML - [facility] LBTroponin I High Sensitivity Reviewed date:10/04/2025 04:21:14 PM Interpretation: Performing Lab: Notes/Report: [facility] ,Troponin I High Dudfzphbvvd828.94.0-51.3 pg/mL REFERENCE LIMIT (URL) OF TROPONIN, DEFINED THE 99TH RESULTS CALLED TO HAS BEEN CONFIRMED THE DECISION THRESHOLD FOR [place] WITH OTHER DIAGNOSTIC AND CLINICAL INFORMATION. 99TH PERCENTILE = 51.4 PG/ML USED IN ISOLATION BUT SHOULD BE INTERPRETED IN CONJUNCTION CUT-OFF POINTS HAVE BEEN ESTABLISHED BASED ON THE FOURTH DIAGNOSIS. PERCENTILE OF cTnI DISTRIBUTION IN A REFERENCE POPULATION, UNIVERSAL DEFINITION OF MYOCARDIAL INFARCTION. THE UPPER NOTE: HIGH-SENSITIVITY TROPONIN ASSAY IS NOT INTENDED TO BE Performing Lab:see note - [facility] LBHCG Qualitative* Reviewed date:10/04/2025 04:21:14 PM Interpretation: Performing Lab: Notes/Report: [facility] ,HCG QualitativeNEGATIVENEGATIVEPerforming Lab:see note - [facility] LBXR chest 1V Reviewed date:10/04/2025 04:24:29 PM Interpretation: Performing Lab: Notes/Report: Source Facility: [place] [address] XRay Report Signed Patient: MARIA C FLORES MR#: [id number] : 1995 Acct:[id number] Age/Sex: 30 / F ADM Date: 10/04/25 Loc: ER Attending Dr: Ordering Physician: Rocio Bobby Date of Service: 10/04/25 Procedure(s): XR chest 1V Accession Number(s): [id number] cc: Nazario Mays M.D.; oRcio Bobby [place] [address] Patient Name: MARIA C FLORES MRN: TB[facility]:[id number] date: 1995 Sex: F Assigned Patient Location: ED.MAIN Current Patient Location: ED.MAIN Accession/Order Number: [id number] Exam Date: 10/04/2025 15:10 Report Date: 10/04/2025 16:01 At the request of: ROCIO BOBBY MD Procedure: XR chest 1V XR chest 1V 10/04/2025 3:16 PM SIGNS AND SYMPTOMS: chest pressure PROTOCOL: Frontal radiograph of the chest COMPARISON: 10/03/2025 FINDINGS: The trachea is midline. The heart and mediastinal structures are within normal limits. The lung parenchyma is clear. The bony thorax is intact. XR/XR chest 1V IMPRESSION: No acute cardiopulmonary pathology. Impression dictated by: Rik Mendez M.D. 10/04/2025 4:01 PM Dictation Location: [place] [address] Electronically authenticated by: [id number] Y Date: 10/04/2025 16:01 Dictated By: Rik Mendez M.D. Signed By: 10/04/25 160 DD/ 00 TD/TT: Proposal Writer:ECG 12 lead Reviewed date:10/04/2025 08:39:06 PM Interpretation: Performing Lab: Notes/Report: Source Facility: [place] [address] Electrocardiograph Report Signed Patient: MARIA C FLORES MR#: [id number] : 1995 Acct:[id number] Age/Sex: 30 / F ADM Date: 10/03/25 Loc: ER Attending Dr: Ordering Physician: Power Donis Date of Service: 10/03/25 Procedure(s): ECG 12 lead Accession Number(s): [id number] cc: [facility] Test Date: 2025-10-03 Pat Name: MARIA C FLORES Department: Room: - Gender: Female Manager Book: : 1995 Requested By: [id number] Order Number: [id number] Reading MD: ELIU YANG M.D. Measurements Intervals [place]ga Rate: 99 P: 63 NM: 138 QRS: 60 QRSD: 82 T: 50 QT: 318 QTc: 375 Interpretive Statements 1100 Sinus rhythm 9110 normal ECG Compared to ECG 10/03/2025 18:21:16 Supraventricular tachycardia no longer present ST (T wave) deviation no longer present Possible ischemia no longer present Electronically Signed On 10-04-2025 19:59:53 EST by ELIU YANG M.D. Dictated By: ELIU YANG Signed By: 10/04/251999 DD/ 182 TD/TT: Proposal Writer:ECG 12 lead Reviewed date:10/04/2025 08:39:06 PM Interpretation: Performing Lab: Notes/Report: Source Facility: [place] [id number] Electrocardiograph Report Signed Patient: MARIA C FLORES MR#: [id number] : 1995 Acct:[id number] Age/Sex: 30 / F ADM Date: 10/03/25 Loc: ER Attending Dr: Ordering Physician: Rocio Bobby Date of Service: 10/03/25 Procedure(s): ECG 12 lead Accession Number(s): [id number] cc: [facility] Test Date: 2025-10-03 Pat Name: MARIA C FLORES Department: Room: - Gender: Female Manager Book: : 1995 Requested By: 1854 Order Number: [id number] Reading MD: ELIU YANG M.D. Measurements Intervals [place]ga Rate: 225 P: 55 NM: 166 QRS: 67 QRSD: 80 T: 25 QT: 266 QTc: 370 Interpretive Statements SUPRAVENTRICULAR TACHYCARDIA [address] depression, possible subendocardial injury 4564 Twave abnormality, possible lateral ischemia 9150 abnormal ECG No previous ECG available for comparison Electronically Signed On 10-04-2025 19:59:30 EST by ELIU YANG M.D. Dictated By: ELIU YANG Signed By: 10/04/251958 DD/ 20 TD/TT: Proposal Writer:CBC AUTO DIFF Reviewed date:10/03/2025 07:08:34 PM Interpretation: Performing Lab: Notes/Report: [facility] ,White Blood Count13.74.0-11.0 10 3/uLRed Blood Count4.974.20-5.40 10 6/uL Gendtgffbx25.512.0-16.0 g/eZGxdibzyyag50.936.0-48.0 %Mean Corpuscular Nuylij29.3 81.0-99.0 fLMean Corpuscular Rjeobluomf60.226.7-34.0 pgMean Corpuscular HGB Conc 33.829.9-35.2 g/dLRed Cell Distribution Width12.511.0-15.0 %Platelet Suzli844 150-450 10 3/uLMean Platelet Volume8.89.5-13.5 fLNeutrophils Percent Auto56.4 43.0-75.0 %Lymphocytes Percent Auto34.920.5-60.0 %Monocytes Percent Auto5.11.7- 12.0 %Eosinophils Percent Auto2.80.9-7.0 %Basophils Percent Auto0.60.2-2.0 % Immature Granulocytes Pct Auto0.20.0-0.5 %Neutrophils Absolute Auto7.71.4-6.5 10 3/uLLymphocytes Absolute Auto4.81.2-3.8 10 3/uLMonocytes Absolute Auto0.70.3-0.8 10 3/uLEosinophils Absolute Auto0.40.0-0.7 10 3/uLBasophils Absolute Auto0.10.0- 0.1 10 3/uLImmature Granulocytes Abs Auto0.030.00-0.03 10 3/uLPerforming Lab:see noteML - [facility] LBIGP,Aptima HPV,Age Gdln Reviewed date:03/03/2025 05:13:39 PM Interpretation: Performing Lab: Notes/Report: BRUSH-SPATULA CERVIX ENDOCERVIX [facility] ,Age Gdln ACOG TestingNote. Source.............Cervix;Endocervix L-Low Normal,H-High Normal,LL-Alert Low,HH-Alert High [address], [place] [address] Age Algo ACOG Marcia... -24 11 TESTS RESULT FLAG UNITS REF RANGE LAB 01 =G Nidhi Womack FLAG LEGEND: <-Panic Low,>-Panic High,A-Abnormal,AA-Critical Abnormal Clinician Provided Cytology Information Priscila Majano MD, No. of containers..01 ThinPrep Vial Performed at: [facility], rfx Aptima HPV ASCUNote. L-Low Normal,H-High Normal,LL-Alert Low,HH-Alert High Satisfactory for evaluation. Endocervical and/or squamous metaplastic TESTS RESULT FLAG UNITS REF RANGE LAB Test Methodology: Note 02 <-Panic Low,>-Panic High,A-Abnormal,AA-Critical Abnormal cancer. Both false-positive and false-negative reports do detection of premalignant and malignant conditions of the Note: Note 02 Performed at: =[facility] NEGATIVE FOR INTRAEPITHELIAL LESION OR MALIGNANCY. Priscila Majano MD, Contact Lens Molder: Priscila Majano MD, Phone: [phone] . 02 DIAGNOSIS: [address] [place] [address] [place], [place] [id number] should not be used as the sole means of detecting cervical Performed at: [address], [place] [id number] The HPV DNA reflex criteria were not met with this specimen The Pap smear is a screening test designed to aid in the [address] [facility] [place] [address] FLAG LEGEND: Performed at: Performed by: 02 Specimen adequacy: 02 the use of an image guided system. occur. 02 [facility] . 02 result therefore, no HPV testing was performed. Angela Zelaya, Stretch Machine Operator (ASCP) cells (endocervical component) are present. This liquid based ThinPrep(R) pap test was screened with Contact Lens Molder: Priscila Majano MD, Phone: [phone] uterine cervix. It is not a diagnostic procedure and Performing Lab:see [facility] LBHCV Antibody Reviewed date:11/25/2024 10:04:04 PM Interpretation: Performing Lab: Notes/Report: [facility] ,HCV AntibodyNon ReactiveNon Reactive HCV antibody alone does not differentiate between followed up with an HCV RNA test to support the diagnosis of active HCV infection. previously resolved infection and active infection. Equivocal and Reactive HCV antibody results should be Performing Lab:see [facility] LBHBsAg Screen Reviewed date:11/25/2024 10:04:04 PM Interpretation: Performing Lab: Notes/Report: [facility] ,HBsAg ScreenNegativeNegative Performed at: [address] [id number] Contact Lens Molder: Joaquin Levine PhD, Phone: [phone] Performing Lab:see [facility] LBHIV Ab/p24 Ag with Reflex Reviewed date:11/25/2024 10:04:04 PM Interpretation: Performing Lab: Notes/Report: [facility] ,HIV Ab/p24 Ag ScreenNon ReactiveNon Reactive HIV Negative detected. There is no laboratory evidence of HIV infection. Contact Lens Molder: Joaquin Levine PhD, Phone: [phone] HIV-1/HIV-2 antibodies and HIV-1 p24 antigen were NOT [address] [place] [phone] Performed at: [facility] Performing Lab:see [facility] LBSGPT Reviewed date:11/24/2024 08:56:27 PM Interpretation: Performing Lab: Notes/Report: [facility] ,Alanine Tafnlezyqtdhqkmv7948-83 U/LPerforming Lab:see note - [facility] LBSGOT Reviewed date:11/24/2024 08:56:27 PM Interpretation: Performing Lab: Notes/Report: [facility] ,Aspartate Amino Ezzuwzgwzig0710-64 U/LPerforming Lab:see noteML - [facility] LBCBC AUTO DIFF Reviewed date:11/23/2024 05:28:41 PM Interpretation: Performing Lab: Notes/Report: [facility] ,White Blood Count8.84.0-11.0 10 3/uLRed Blood Count4.504.20-5.40 10 6/uL Oaafsbgpky71.912.0-16.0 g/jMDpkzkxaufe60.036.0-48.0 %Mean Corpuscular Mglbas65.4 81.0-99.0 fLMean Corpuscular Mzxrvvgbka44.726.7-34.0 pgMean Corpuscular HGB Conc 33.929.9-35.2 g/dLRed Cell Distribution Width11.911.0-15.0 %Platelet Tatsc206 150-450 10 3/uLMean Platelet Volume8.99.5-13.5 fLNeutrophils Percent Auto38.3 43.0-75.0 %Lymphocytes Percent Auto47.020.5-60.0 %Monocytes Percent Auto7.51.7- 12.0 %Eosinophils Percent Auto6.40.9-7.0 %Basophils Percent Auto0.60.2-2.0 % Immature Granulocytes Pct Auto0.20.0-0.5 %Neutrophils Absolute Auto3.41.4-6.5 10 3/uLLymphocytes Absolute Auto4.11.2-3.8 10 3/uLMonocytes Absolute Auto0.70.3-0.8 10 3/uLEosinophils Absolute Auto0.60.0-0.7 10 3/uLBasophils Absolute Auto0.10.0- 0.1 10 3/uLImmature Granulocytes Abs Auto0.020.00-0.03 10 3/uLPerforming Lab:see noteML - [facility] LBECG 12 lead Reviewed date:10/04/2025 08:39:06 PM Interpretation: Performing Lab: Notes/Report: Source Facility: [facility] [place] [address] [place] [address] Electrocardiograph Report Signed Patient: MARIA C FLORES MR#: [id number] : 1995 Acct:[id number] Age/Sex: 30 / F ADM Date: 10/04/25 Loc: ER Attending Dr: Ordering Physician: Rocio Bobby Date of Service: 10/04/25 Procedure(s): ECG 12 lead Accession Number(s): [id number] cc: [facility] Test Date: 2025-10-04 Pat Name: MARIA C FLORES Department: Room: - Gender: Female Manager Book: : 1995 Requested By: 1854 Order Number: [id number] Reading MD: ELIU YANG M.D. Measurements Intervals [place]ga Rate: 97 P: 66 NM: 174 QRS: 52 QRSD: 80 T: 39 QT: 330 QTc: 384 Interpretive Statements 1100 Sinus rhythm 9110 normal ECG Compared to ECG 10/03/2025 18:28:01 No significant changes Electronically Signed On 10-04-2025 20:03:17 EST by ELIU YANG M.D. Dictated By: ELIU YANG Signed By: 10/04/252002 DD/ 1520 TD/TT: Proposal Writer:Troponin I High Sensitivity Reviewed date:10/04/2025 04:21:14 PM Interpretation: Performing Lab: Notes/Report: [facility] ,Troponin I High Nwardukyxyj096.94.0-51.3 pg/mL UNIVERSAL DEFINITION OF MYOCARDIAL INFARCTION. THE UPPER WITH OTHER DIAGNOSTIC AND CLINICAL INFORMATION. NOTE: HIGH-SENSITIVITY TROPONIN ASSAY IS NOT INTENDED TO BE PERCENTILE OF cTnI DISTRIBUTION IN A REFERENCE POPULATION, USED IN ISOLATION BUT SHOULD BE INTERPRETED IN CONJUNCTION 99TH PERCENTILE = 51.4 PG/ML DIAGNOSIS. CUT-OFF POINTS HAVE BEEN ESTABLISHED BASED ON THE FOURTH RESULTS CALLED TO ZACHERY POWELL RN @BY Ivana Quintana REFERENCE LIMIT (URL) OF TROPONIN, DEFINED THE 99TH at 2208 HAS BEEN CONFIRMED THE DECISION THRESHOLD FOR [place] Performing Lab:see noteML - [facility] LBXR chest 2V Reviewed date:10/04/2025 04:21:14 PM Interpretation: Performing Lab: Notes/Report: Source Facility: [place] [address] [address] XRay Report Signed Patient: MARIA C FLORES MR#: [id number] : 1995 Acct:[id number] Age/Sex: 30 / F ADM Date: 10/03/25 Loc: ER Attending Dr: Ordering Physician: Power Donis Date of Service: 10/03/25 Procedure(s): XR chest 2V Accession Number(s): [id number] cc: Power Donis; Nazario Mays M.D. [place] [address] Patient Name: MARIA C FLORES MRN: [facility]:[id number] date: 1995 Sex: F Assigned Patient Location: ER Current Patient Location: ER Accession/Order Number: [id number] Exam Date: 10/03/2025 20:27 Report Date: 10/03/2025 21:55 At the request of: POWER DONIS MD Procedure: XR chest 2V PA AND LATERAL CHEST: CLINICAL HISTORY: tachycardia COMPARISON: 11/05/2022 FINDINGS: Unremarkable cardiomediastinal. Lungs clear. No effusion or pneumothorax. XR/XR chest 2V IMPRESSION: NO ACUTE CARDIOPULMONARY ABNORMALITY. Impression dictated by: Hamilton Gutierrez M.D. 10/03/2025 9:55 PM Dictation Location: [place] [address] Electronically authenticated by: [id number] Y Date: 10/03/2025 21:55 Dictated By: Hamilton Gutierrez M.D. Signed By: 10/03/252156 DD/ 54 TD/TT: Proposal Writer:Troponin I High Sensitivity Reviewed date:10/03/2025 07:08:34 PM Interpretation: Performing Lab: Notes/Report: [facility] ,Troponin I High Sensitivity5.94.0-51.3 pg/mL DIAGNOSIS. REFERENCE LIMIT (URL) OF TROPONIN, DEFINED THE 99TH WITH OTHER DIAGNOSTIC AND CLINICAL INFORMATION. USED IN ISOLATION BUT SHOULD BE INTERPRETED IN CONJUNCTION 99TH PERCENTILE = 51.4 PG/ML UNIVERSAL DEFINITION OF MYOCARDIAL INFARCTION. THE UPPER HAS BEEN CONFIRMED THE DECISION THRESHOLD FOR [place] CUT-OFF POINTS HAVE BEEN ESTABLISHED BASED ON THE FOURTH PERCENTILE OF cTnI DISTRIBUTION IN A REFERENCE POPULATION, NOTE: HIGH-SENSITIVITY TROPONIN ASSAY IS NOT INTENDED TO BE Performing Lab:see noteML - [facility] LBPROF 14(COMP METB) Reviewed date:10/03/2025 07:08:34 PM Interpretation: Performing Lab: Notes/Report: [facility] ,Oudbbv318551-837 mmol/LPotassium3.43.5-5.1 mmol/SJrgcxobp56252-662 mmol/LCarbon Dobellx69.821.0-32.0 mmol/LAnion Gap18.3Vcvmupv76449-491 mg/dLBlood Urea Oxgvaikg43.07.0-18.0 mg/dLCreatinine0.810.55-1.02 mg/dLEstimated GFR ( Marlena>60>=60 mL/min/1.73m 2Estimated GFR (Non- Nickie>60>=60 mL/min/1.73m 2BUN Creatinine Ratio13.5Fcyvill8.98.5-10.1 mg/dLBilirubin Total0.40.2-1.0 mg/dL Aspartate Amino Qzfssbgmjgh9512-98 U/LAlanine Owyafabdacnbikap5362-34 U/L Alkaline Chisgnoakwt9718-299 U/LTotal Protein7.36.4-8.2 g/dLAlbumin Level3.83.4- 5.0 g/dLGlobulin3.5Albumin Globulin Ratio1.1Performing Lab:see noteML - [facility] LBMAGNESIUM Reviewed date:10/03/2025 07:08:34 PM Interpretation: Performing Lab: Notes/Report: [facility] ,Magnesium1.71.8-2.4 mg/dLPerforming Lab:see note - [facility] LB Reason For Referral No Information Medications Medication SIG (Take, Route, Frequency, Duration) Notes Start Date End Date Status Magnesium ActiveOndansetron 4 MG1 tablet on the tongue and allow to dissolve Orally qid 5ActiveTremfya 100 MG/ML1 mL SubcutaneousActiveAdipex-P 37.5 MG1 tablet before breakfast Orally Once a day5ActiveCitalopram Hydrobromide 40 mg TAKE 1 TABLET BY MOUTH DAILY; Duration: 90ActiveElderberryActivelevoFLOXacin 750 MG1 tablet Orally Once a day; Duration: 10 day(s)5ActiveVitamin D3 2400 UNIT/MLas directedActiveZincActive Social History Tobacco Use: Social History Observation Description Date Details (start date - stop date) Current Smoker 10/27/2013 - NA Tobacco Use/Smoking Question Answer Notes Patient is a current smoker When did you start smoking?10/27/2013How often do you smoke cigarettes?every day How many cigarettes a day do you smoke?6-10How soon after you wake up do you smoke your first cigarette?after 60 minutesAre you interested in quitting?Not ready to quitAdditional Findings: Tobacco UserModerate cigarette smoker (10-19 cigs/day)Alcohol Screen (Audit-C) Question Answer Notes Did you have a drink containing alcohol in the p ast year? No Ynajvu1MmmfrkzqnlatptMlqedlfcVUOSX-O (Standard) Question Answer Notes Did you have a drink containing alcohol in the p ast year? No Xmygwx1MtsvsdjgpcsiqtMfsjcepq Problems Problem Type SNOMED Code ICD Code Onset Dates Problem Status W/U Status Risk Notes Problem Morbid obesity (disorder) (93889 6002) Morbid (severe) obesity due to excess calories (E66.01) ActiveconfirmedProblemGeneralized anxiety disorder (73912630)Generalized anxiety disorder (F41.1)ActiveconfirmedProblemCardiac arrhythmia (502201794)Other specified cardiac arrhythmias (I49.8)ActiveconfirmedProblemStreptococcal pharyngitis (42969655)Streptococcal pharyngitis (J02.0)ActiveconfirmedProblem Dermatitis (839712765)Dermatitis, unspecified (L30.9)ActiveconfirmedProblemAcne vulgaris (40407771)Acne vulgaris (L70.0)ActiveconfirmedProblemExposure to communicable disease (722571878)Contact with and (suspected) exposure to other viral communicable diseases (Z20.828)ActiveconfirmedProblemFatigue (68613787) Fatigue (R53.83)ActiveconfirmedProblemGastroesophageal reflux disease (713967950)GERD (gastroesophageal reflux disease) (K21.9)ActiveconfirmedProblem Insomnia (565698843)Insomnia (G47.00)ActiveconfirmedProblemEczema (54857638) Eczema (L30.9)ActiveconfirmedProblemSinusitis (12942109)Sinusitis (J32.9)Active confirmedProblemAllergic rhinitis (68456780)Allergic rhinitis (J30.9)Active confirmedProblemWell adult (654448219)Well adult (Z00.00)ActiveconfirmedProblem Folliculitis (43617497)Folliculitis (L73.9)ActiveconfirmedProblemConjunctivitis (4537878)Conjunctivitis (H10.9)ActiveconfirmedProblemHand, foot and mouth disease (184127304)Hand, foot and mouth disease (B08.4)ActiveconfirmedProblem Overweight (980238701)Over weight (E66.3)ActiveconfirmedProblemOtitis media (24268184)Otitis media, right (H66.91)ActiveconfirmedProblemChronic rhinitis (26846884)Other rhinitis (J31.0)ActiveconfirmedProblemDisease caused by Severe acute respiratory syndrome coronavirus 2 (disorder) (401923157)COVID-19 virus infection (U07.1)ActiveconfirmedProblemBody mass index 35.00 to 39.99 (253340532029839)Body mass index [BMI] 38.0-38.9, adult (Z68.38)Activeconfirmed ProblemLow back pain (305712944)Low back pain, unspecified (M54.50)Active confirmedProblemCough (finding) (59418241)Other cough (R05.8)Activeconfirmed ProblemSupraventricular tachycardia (disorder) (3719603)Supraventricular tachycardia, unspecified (I47.10)Activeconfirmed Vital Signs Temperature 97.1 degrees Fahrenheit 09/06/2025 Blood pressure gpxanabol20 mm Hg09/06/20258250Btbqfn57 in09/06/2025lood pressure yxalmbei192 mm Hg09/06/20259617Shlzku186.4 lbs111/06/2024BMI33.15 kg/m209/06/2025 Encounters Encounter Location Date Provider Diagnosis [facility] [address] [facility] [place] [address] 07/04/2025 Joce Hoy Acute bronchitis, unspecified organism J20.9 and Over weight E66.3 [facility] [address] [place] [facility] [place] [address] 09/02/2025 Joce Hoy Fatigue R53.83 [facility] [address] [place] [place] [address] 09/06/2025 Candi Arminda Bronchitis J40 [facility] [address] [facility] [place] [address] 11/11/2024 Joce Hoy Acute bronchitis, unspecified organism J20.9 [facility] [address] [place] [address] 02/23/2025 Joce Hoy Low back pain, unspecified M54.50 and Over weight E66.3 [facility] [address] [facility] [address] 03/24/2025 Joce Hoy Over weight E66.3 an d GERD (gastroesophageal reflux disease) K21.9 [facility] [address] [facility] [address] 01/31/2025 Joce Hoy [facility] [facility] [address] 03/04/2025[place] [address] [facility] [place] [address]/12/2024[place] [address] [place] [address]/07/2025Doug HoyOver weight E66.3 and Acute bronchitis, unspecified organism J20.9[place] [address] [facility] [place] [address]/05/2025Doug Hoy Assessments Encounter Date Diagnosis (ICD Code) Assessment Notes Treatment Notes Treatment Clinical Notes Section Notes 11/11/2024 Acute bronchitis, unspecified or ganism (ICD-10 - J20.9) Rest and drink more liquids, especially water. You may use a humidifier or vaporizer to help keep the drainage moist. Rtlz-suk-duuqfrz Nasal Saline may help the stuffy and runny nose. Use Ibuprofen and or Tylenol as needed for fever, chills, body aches or pain. Children 5 years old should not be given lkuq-kbm-pcpcfvr cough and cold medications such as guaifenesin and dextromethorphan. If you're over age 5, you may try vlru-rsq-zthljui cold medications such as guaifenesin and dextromethorphan, or multi-symptom cold reliever such as Dayquil to help reduce the symptoms. Antibiotics have been pre scribed. You should take these until completed and follow the directions. Antibiotics can sometimescause upset stomach, and in rare cases, serious allergic reactions or serious gastrointestinal problems. If you start having severe abdominal pain, severe vomiting, or bloody diarrhea, you should be r eevaluated by your physician or urgent care immediately. Follow up with your Primary Care Provider or return to clinic if symptoms do not improve within 3-5 days. If you develop severe symptoms such as shortness of breath, repeated vomiting, coughing up blood, or chest pain you should go to the emergency room or call [phone] back pain, unspecified (ICD-10 - M54.50)02/23/2025Over weight (ICD-10 - E66.3)03/24/2025Over weight (ICD-10 - E66.3)03/24/2025GERD (gastroesophageal reflux disease) (ICD-10 - K21.9)5Acute bronchitis, unspecified organism (ICD-10 - J20.9)Rest and drink more liquids, especially water. You may use a humidifier or vaporizer to help keep the drainage moist. Ciyn-biv-hgwkzwy Nasal Saline may help the stuffy and runny nose. Use Ibuprofen and or Tylenol as needed for fever, chills, body aches or pain. Children 5 years old should not be given ufdl-mrt-msecdif cough and cold medications such as guaifenesin and dextromethorphan. If you're over age 5, you may try anfl-twc-tfkkvki cold medications such as guaifenesin and dextromethorphan, or multi-symptom cold reliever such as Dayquil to help reduce the symptoms. Antibiotics have been prescribed. You should take these until completed and follow the directions. Antibiotics can sometimescause upset stomach, and in rare cases, serious allergic reactions or serious gastrointestinal problems. If you start having severe abdominal pain, severe vomiting, or bloody diarrhea, you should be reevaluated by your physician or urgent care immediately. Follow up with your Primary Care Provider or return to clinic if symptoms do not improve within 3-5 days. If you develop severe symptoms such as shortness of breath, repeated vomiting, coughing up blood, or chest pain [facility] or call [phone] weight (ICD-10 - E66.3)09/02/2025Fatigue (ICD-10 - R53.83)5 days/month - leav med same for now5Bronchitis (ICD- 10 - J40)Kenalog 80007/06/2025Over weight (ICD-10 - E66.3)5Acute bronchitis, unspecified organism (ICD-10 - J20.9) Plan Of Treatment No Information Insurance Providers Payer Name Payer Address Payer Phone Subscriber Number Group Number Insured Name Patient Relationship to Insured Coverage Start Date Coverage End Date [employer] PPO PLUS LOCAL PLAN [address] [place] [address] [id number] Missael Flores - patient is the insured Medications Administered Medication Instructions Date of Administration Dosage Notes Ceftriaxone 1 gram gmethylPREDNISolone Xdvxzcd07 mgTriamcinolone 40 mg/ml mg Medical (General) History Medical History History ICD Code Well adult Z00.00 Over weight E66.3 Eczema L30.9 Otitis media, right H66.91 Low back pain, unspecified M54.50 COVID-19 virus infection U07.1 Contact with and (suspected) exposure to other viral communicable diseases Z20.828 Other cough R05.8 Hand, foot and mouth disease B08.4 Streptococcal pharyngitis J02.0 Fatigue R53.83 Insomnia G47.00 Generalized anxiety disorder F41.1 Sinusitis J32.9 Folliculitis L73.9 GERD (gastroesophageal reflux disease) K 21.9 Other rhinitis J31.0 Allergic rhinitis J30.9 Surgical History Surgery Date(Month/Year) Cyst removal tailbone 2017 [facility] Teeth removed 2012 Hospitalization History Reason Date(Month/Year) of Child 2020
--- OUTSIDE RECORDS SUMMARY | 2025-10-26 09:45 | XMS_ITS | Clinical Summary ---
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 Name Role Phone Nazario Mays MD Primary Care Provider Allergies Active AllergyReactionsCriticalityNoted DateComments Sulfamethoxazole-XngnlketkytwViebpvb49/12/2024 Other Reaction(s): never taken, family is allergic Medications MedicationSigDispense QuantityRefillsLast FilledStart DateEnd DateStatus citalopram (CeleXA) 40 mg tablet Take 40 mg by mouth in the morning.Active guselkumab (Tremfya) 100 mg/mL syringe Inject 100 mg under the skin 1 (one) time.5Active phentermine (Adipex-P) 37.5 mg tablet Take 37.5 mg by mouth if needed.5Active flecainide (Tambocor) 50 mg tablet Indications:SVT (supraventricular tachycardia)Take 1 tablet (50 mg) by mouth Twice daily at 6am and 6pm. 180 tablet 5Active flecainide (Tambocor) 50 mg tablet Take 1 tablet by mouth Twice daily at 6am and 6pm. Discontinued(Reorder) Encounters DateTypeDepartmentCare YpwjYddaxadakfx13/16/2025 9:[address] [facility] [address] [place] [address] Bull Mercado MD SVT (supraventricular tachycardia) (Primary Dx)10/11/2025Orders Only [facility] [address] [place] [facility] [place] [address] Katty Zayas MA SVT (supraventricular tachycardia) (Primary Dx); Abnormal EKG112/12/2024Orders Only [facility] [address] [place] [facility] [place] [address] Katty Zayas MA SVT (supraventricular tachycardia) (Primary Dx)from Last 3 Months Family History Medical HistoryRelationNameCommentsHeart diseaseFatherHypertensionFatherDiabetes type IIMaternal GrandfatherHeart attackMaternal GrandfatherHeart diseaseMaternal GrandfatherHeart attackPaternal GrandfatherHeart diseasePaternal Grandfather Heart failurePaternal GrandfatherRelationNameStatusCommentsFatherAliveMaternal GrandfatherMotherAlivePaternal Grandfather Social History Tobacco UseTypesPacks/DayYears UsedDateSmoking Tobacco: FormerCigarettes Smokeless Tobacco: Former Tobacco Cessation:Counseling Given: Not Answered Comments:Vape CommentsUnknownSex and Gender InformationValueDate RecordedSex Assigned at SnhntVsvtow04/15/2025 12:10 PM ESTLegal XysYjyqek47/09/2025 6:12 AM ESTGender EkuyuazyGvmmwm73/15/2025 12:10 PM ESTSexual OrientationHeterosexual or Straight 10/10/2025 12:10 PM EST Last Filed Vital Signs Vital SignReadingTime TakenCommentsBlood Uqbsetvd281/8210/11/2025 8:57 AM EST Ezjve618110/11/2025 8:57 AM ESTTemperature--Respiratory Rate--Oxygen Ridgmpqqdr84% 10/11/2025 8:57 AM ESTInhaled Oxygen Concentration--Gmrvlq82.2 kg (212 lb) 10/11/2025 8:57 AM RVYMhimbz962.6 cm (5' 6 )10/11/2025 8:57 AM ESTBody Mass Index34.22112/12/2024 8:57 AM EST Plan of Treatment NamePriorityAssociated DiagnosesDate/TimeEP STUDY SVT (supraventricular tachycardia) ABLATION AV NODE SVT (supraventricular tachycardia) ABLATION SVT ATRIAL TACHYCARDIA SVT (supraventricular tachycardia) Health MaintenanceDue DateLast DoneCommentsDepression Hpfrnjsax23/08/2009 Varicella Vaccines (1 of 2 - 13+ 2-dose series)2010Pap Smear2018 Adult Whxnqpu1108/03/2019HPV Vaccines (1 - 3-dose SCDM series)4COVID-19 Vaccine (1 - 2024- season)2025Influenza Vaccine (#1)2025Zoster Vaccines (1 of 2)2047HIB VaccinesAged OutNo longer eligible based on patient's age to complete this topicIPV VaccinesAged OutNo longer eligible based on patient's age to complete this topicMeningococcal B VaccineAged OutNo longer eligible based on patient's age to complete this topicMeningococcal VaccineAged OutNo longer eligible based on patient's age to complete this topicPneumococcal Vaccine: Pediatrics (0 to 5 Years) and At-Risk Patients (6 to 64 Years)Aged Out No longer eligible based on patient's age to complete this topicRotavirus VaccinesAged OutNo longer eligible based on patient's age to complete this topic Insurance MemberSubscriberPlan / Payer (Effective 2025-Present)Name:Maria C Flores Relation to Subscriber:SpouseName:Devin Flores Date of :1991 (Home) Address: [address] [place] [address] Payer ID:[id number] (NAIC) Type:Not on file Address: [facility] [address] [place] [address] Care Teams Team MemberRelationshipSpecialtyStart DateEnd Date Nazario Mays MD [address] [place] [address] [facility] - [facility]
--- OUTSIDE RECORDS SUMMARY | 2025-10-26 09:50 | XMS_ITS | CCD ---
Author Organization [facility] [employer] [facility] Care Team Providers Care Dry Cleaning Teacher Name Role Phone Chris Zazueta Attending Unavailable Saji Mays~[phone] UNKNOWN Primary Care Unavailable DENICE, DR VIVIAN Welch Consulting Unavailabl e REINECK, DR VIVIAN Welch Admitting Unavailabl e HOY ., DR LENNON Primary Care Unavailable REINECK, DR VIVIAN Welch Attending Unavailabl e GRECHNY ., JACKSON JAY Consulting Unavailabl e HOY ., DR LENNON Attending Unavailable HOY ., DR LENNON Primary Care Unavailable HOY ., DR LENNON Admitting Unavailable OSVALDO SIDDQII Attending Unavailable DEVANG, OSVALDO Consulting Unavailable OSVALDO SIDDIQI Admitting Unavailable HOY ., DR LENNON Primary Care Unavailable HOY ., DR LENNON Primary Care Unavailable MARKER ., DR BROOKE Attending Unavailable MARKER ., DR BROOKE Consulting Unavailable MARKER ., DR BROOKE Admitting Unavailable JAC HOGUE Consulting Unavailable Unavailable Primary Care Provider UnavailSaji Caldera MD Primary Care Provider [phone] Saji Mays MD Primary Care Provider [id number] [...] (3 sources)Sulfamethoxazole / Trimethoprim; Translations: [Bactrim]Drug Allergy 89-29-3405BnounjTog[facility] Rep[facility] (20 sources)Sulfamethoxazole / TrimethoprimDrug Nnvdaqk75-13-0997ZtplbphIMOO Healthcare Medications Current Medications MedicationDrug Class(es)DatesSig (Normalized)Sig (Original)calcium citrate 950 mg oral tablet (13 sources)calcium citrate (Calcitrate) 950 (200 Ca) MG tablet Take 475 mg by mouth Daily Activecephalexin 500 mg oral capsule (1 source)Cephalosporin AntibacterialStart: 12-11-2023 End: 35-37-1418axnb 1 capsule by mouth in the morning, [...] mg oral tablet (20 sources)Serotonin Reuptake InhibitorStart: 14-69-9135vrdl 1 tablet by mouth once dailycitalopram (CeleXA) 40 MG tablet Take 40 mg by mouth Daily 02/21/2025 Active End: 15-98-0555aiqj 1 tablet by mouth once dailycitalopram (CeleXA) 40 MG tablet TAKE 1 TABLET BY MOUTH ONCE DAILY for 90 days 11/15/2024 DiscontinuedMAGNESIUM 4 MUSCLES (13 sources)MAGNESIUM 4 MUSCLES Magnesium Ssbvxq06 hr metFORMIN hydrochloride 500 mg extended release oral tablet (4 sources)BiguanideStart: 12-11-2023 End: 92-42-6782gvuk 1 tablet by mouth every twenty-four hours at mealtime metFORMIN XR (Glucophage-XR) 500 MG 24 hr tablet Indications: Irregular periods/menstrual cycles Take 1 tablet (500 mg) by mouth in the evening. Take with meals Do not crush, chew, or split. 30 tablet 11 12/11/2023 09/15/2024 Discontinuednystatin 100 unt/mg topical powder (4 sources)Polyene AntifungalStart: 01-13-2023 End: 62-19-6946aejpepsz (Mycostatin) 371628 UNIT/GM powder Apply a small amount to skin twice a day 01/13/2023 09/15/2024 Discontinuedondansetron 4 mg oral tablet (20 sources)Serotonin-3 Receptor AntagonistStart: 43-60-4517oebq 1 tablet by mouth every twenty-four hours as neededondansetron (Zofran) 4 MG tablet Take 4 mg by mouth Daily as needed 04/03/2023 Activephentermine hydrochloride 37.5 mg oral tablet (1 source)Sympathomimetic Amine AnorecticStart: 89-28-6757cotp 1 tablet by mouth before mealtimephentermine (Adipex-P) 37.5 MG tablet Take 37.5 mg by mouth in the morning. Take before meals. 07/06/2025 ActivepredniSONE 20 mg oral tablet (4 sources)Start: 01-13-2023 End: 90-50-3629rale 3 tablets by mouth in the morningpredniSONE (Deltasone) 20 MG tablet Take 60 mg by mouth in the morning. 01/13/2023 09/15/2024 Discontinued Vit-Fe Fumarate-FA ( Vitamin) 27-0.8 MG tablet (4 sources) End: 01-69-8835Fufgsxwg Vit-Fe Fumarate-FA ( Vitamin) 27-0.8 MG tablet [...] topical lotion (10 sources)Lincosamide AntibacterialStart: 09-15-2024 End: 57-35-5542rixvwkrlmvq (Cleocin T) 1 % lotion Indications: Acne vulgaris Apply thin layer to face, once daily in the morning, 30 day supply 60 mL 11 09/15/2024 02/28/2025 Discontinued1 ml guselkumab 100 mg/ml prefilled syringe (20 sources)Interleukin-23 AntagonistStart: 09-01-2025 End: 68-99-3583hesnxwzyhc (Tremfya) injection 100 mgStart: 09-01-2025 End: 20-75-9539400 mg, Subcutaneous, Once, On Radha 09/01/25 at [...] to administering. Do not shake.Start: 07-07-2025 End: 03-30-1312Horeanwuzh solution auto-injector 100 mgStart: 07-07-2025 End: 82-26-2780ltkrif 100 mg by subcutaneous injection lpux062 mg, Subcutaneous, Once, On Radha 07/07/25 at 1600, For 1 doseStart: 07-07-2025 End: 44-33-7158Rnqhhchfjc solution auto-injector 100 mgStart: 07-07-2025 End: 54-53-0339zwfxvp 100 mg by subcutaneous injection jhky535 mg, Subcutaneous, Once, On Radha 07/07/25 at 1600, For 1 doseStart: 16-20-6940qjwtklpfny (Tremfya) injection 100 mgStart: 03-10-2025 End: 41-81-2469cpjlfrnbjh (Tremfya) injection 100 mgStart: 03-10-2025 End: 07-87-8453tjvgfbzddr (Tremfya) injection 100 mgStart: 03-10-2025 End: 41-87-7185498 mg, Subcutaneous, Once, On Radha 03/10/25 at [...] to administering. Do not shake.Start: 03-10-2025 End: 12-22-5076172 mg, Subcutaneous, Once, On Radha 03/10/25 at [...] to administering. Do not shake.Start: 02-07-2025 End: 98-62-2503Rermthbgim solution auto-injector 100 mgStart: 02-07-2025 End: 97-07-9388uqbbrs 100 mg by subcutaneous injection khru661 mg, Subcutaneous, Once, On 02/07/25 at 1600, For 1 doseStart: 02-01-2025 End: 43-34-3926Tthiuiylcf (Tremfya) 100 MG/ML solution auto-injector Indications: Plaque Psoriasis Inject 100 mg under the skin See administration instructions Inject 100 mg (contents of one pen) under the skin at week 0 and week 4. 2 mL 02/01/2025 03/02/2025 ActiveStart: 31-85-8039Nkfmerlarf (Tremfya) 100 MG/ML solution auto-injector Indications: Plaque Psoriasis Inject 100 mg un devi the skin every 8 (eight) weeks 1 mL 01/31/2025 Activeomeprazole 20 mg delayed release oral capsule (12 sources)Proton Pump Inhibitor End: 45-33-8622fdqinaopdc (PriLOSEC) [address] capsule 02/28/2025 Discontinued tretinoin 0.25 mg/ml topical cream (10 sources)RetinoidStart: 09-15-2024 End: 08-42-2214rfefnaada (Retin-A) 0.025 % cream Indications: Acne vulgaris Apply topically at bedtime Apply thin layer to face at bedtime 45 g 09/15/2024 02/28/2025 Discontinuedtriamcinolone acetonide 1 mg/ml topical cream (10 sources)CorticosteroidStart: 09-15-2024 End: 48-72-7122mzkzvhvecwuiq (Kenalog) 0.1 % cream Indications: Psoriasis vulgaris (CMS/HCC) Apply topically 2 (two) times a day as needed for rash 240 g 11 09/15/2024 02/28/2025 Discontinued Problems Active Problems Problem ClassificationProblemDateDocumented DateEpisodic/ChronicOther aftercare (10 sources)Taking high risk medication; Translations: [Other manager intermediate (current) drug therapy]88-28-1637BupytlknXqdca female genital disorders (1 source)Abnormal uterine and vaginal bleeding, unspecified; Translations: [ABNORMAL UTERINE VAGINAL BLEED UNS]Onset: 33-59-7292XwfwsxnOwwli inflammatory condition of skin (12 sources)Psoriasis vulgaris; Translations: [Psoriasis vulgaris]09-15-2024 ChronicOther skin disorders (4 sources)Acne vulgaris; Translations: [Acne vulgaris]52-96-1061Geokztpn Substance-related disorders (1 source)Nicotine dependence, cigarettes, uncomplicated; Translations: [NICOTINE DEPEND CIGARETTES UNCOMP]Onset: 10-14-7485CppsijkXbypvffwjkmy (3 sources)COUGH, UNSPECIFIED; Translations: [COUGH, UNSPECIFIED]Onset: 70-40-6124Slwtgktsuiqa (1 source)UNVACCINATED FOR COVID-19; Translations: [UNVACCINATED FOR COVID-19] Onset: 93-11-5531Urfcxfctapwb (4 sources)CONTACT W/AND (SUSP) EXPOS COVID-19; Translations: [CONTACT W/AND (SUSP) EXPOS COVID-19]Onset: 10-25-2022 Past or Other Problems Problem ClassificationProblemDateDocumented DateEpisodic/ChronicOther aftercare (1 source)Other chcf (current) drug therapy; Translations: [OTH CORRECTION CURRENT DRUG THERAPY]Onset: 35-16-9633XjybyozkHonez upper respiratory disease (1 source)Nasal congestion; Translations: [NASAL CONGESTION]Onset: 10-25-2022 EpisodicOther upper respiratory infections (1 source)Acute upper respiratory infection, unspecified; Translations: [ACUTE UP RESPIRATORY INFECTION UNS]Onset: 12-06-1753RulftmlaUmzvzzmhsaaa (1 source)COUGH, UNSPECIFIED; Translations: [COUGH, UNSPECIFIED]Onset: 09-47-0608Bqcilsczfvlx (1 source)CONTACT W/AND (SUSP) EXPOS COVID-19; Translations: [CONTACT W/AND (SUSP) EXPOS COVID-19]Onset: 32-66-4754Nmucfdh tract infections (1 source)Urinary tract infection, site not specified; Translations: [UTI SITE NOT SPECIFIED]Onset: 48-28-9952Zjfjbiwr Results Test NameValueInterpretationReference RangeFacilityIGP,APTIMA HPV,AGE GDLNon 71-29-4106YHQ GDLN ACOG TESTINGNote.[facility] HealthcareComment on above:TESTS RESULT FLAG UNITS REF RANGE LAB Clinician Provided Cytology Information Source.............Cervix;Endocervix No. of containers..01 ThinPrep Vial Age Algo ACOG Marcia... FLAG LEGEND: L-Low Normal,H-High Normal,LL-Alert Low,HH-Alert High <-Panic Low,>-Panic High,A-Abnormal,AA-Critical Abnormal Performed at: 01 =[facility], [place] [address] Priscila Majano MD, IGP, RFX APTIMA HPV ASCUNote.[facility] HealthcareComment on above:TESTS RESULT FLAG UNITS REF RANGE LAB DIAGNOSIS: 02 NEGATIVE FOR INTRAEPITHELIAL LESION OR MALIGNANCY. Specimen adequacy: 02 Satisfactory for evaluation. Endocervical and/or squamous metaplastic cells (endocervical component) are present. Performed by: Vanita Zelaya Measurement Superintendent ([facility]) . 02 Note: Note 02 [...] <-Panic Low,>-Panic High,A-Abnormal,AA-Critical Abnormal Performed at: [address] [place] [address] Priscila Majano MD, Performed at: =G - [facility] [address], [place] [id number] Windows Application Packager: Priscila Majano MD, Phone: [phone] Performed at: - [facility] [id number] Windows Application Packager: Priscila Majano MD, Phone: [phone] BRUSH-SPATULA CERVIX ENDOCERVIX CLINISYNCNOAK HealthcareCytology Cervical or vaginal smear or scraping studyon 78-59-8554KFQPResearch Medical CenterALL CBC WITH AUTO DIFFon 21-84-1365FUMJMOBLZ ABSOLUTE AUTO0.0NOSaint Mary's Hospital of Blue SpringsBasophils/100 WBC (Bld)0.5 %0.2 - 2.0 %[facility] Eosinophils/100 WBC (Bld)4.9 %0.9 - 7.0 %Research Medical CenterErythrocyte distribution width (RBC) [Ratio]12.4 %11.0 - 15.0 %Research Medical CenterHematocrit (Bld) [Volume fraction]38.0 %36.0 - 48.0 %[facility] Medical CenterHemoglobin (Bld) [Mass/Vol]12.6 g/dL 12.0 - 16.0 g/dLResearch Medical CenterIMMATURE GRANULOCYTES ABS AUTO0.01NOSaint Mary's Hospital of [facility] Springs Immature granulocytes/100 WBC (Bld)0.1 %0.0 - 0.5 %[facility] Medical CenterInterpretation and review of laboratory resultsAbnormalResearch Medical CenterLYMPHOCYTES ABSOLUTE AUTO3.1NOMS [facility]aconess HospitalLymphocytes/100 WBC (Bld)35.3 %20.5 - 60.0 %[facility] CenterH (RBC) [Entitic mass]28.1 pg26.7 - 34.0 pgSaint Joseph Health CenterHC (RBC) [Mass/Vol]33.2 g/dL29.9 - 35.2 g/dLResearch Medical CenterMCV (RBC) [Entitic vol]84.8 fL 81.0 - 99.0 fLResearch Medical CenterMONOCYTES ABSOLUTE AUTO0.6NOSaint Mary's Hospital of [facility] Springs Monocytes/100 WBC (Bld)7.1 %1.7 - 12.0 %[facility] Medical CenterNEUTROPHILS ABSOLUTE AUTO 4.6NOSaint Mary's Hospital of Blue SpringsNeutrophils/100 WBC (Bld)52.1 %43.0 - 75.0 %[facility] Platelet mean volume (Bld) [Entitic vol]8.8 fLLow9.5 - 13.5 fLResearch Medical CenterTB EO #0.4NOMS [facility]acon[facility] HospitalTB EHI087OIRKCarondelet Health RBC4.48NOCarondelet Health WBC 8.8NOSaint Mary's Hospital of Blue SpringsCLINISYNCNOMS HealthcareCULTURE URINEon 70-67-9461EONIGFO URINECulture Observations: MODERATE GROWTH OF MIXED GENITAL RASHIDA. NO POTENTIAL PATHOGENS SEEN.NormalThe [facility]ermont HospitalComment on above:Performed By: #### URCX #### [facility] [address] [address] [address] Crys Bishop URINE PROFILEon 57-71-6217Tmemxianp Ql (U)NegativeNormal NEGATIVEClinton Memorial HospitalComment on above:Performed By: #### PREGU, UMICRO, ERUR #### [facility] [address] [address] [address] Crys Weathersarity (U)CLEARNormalCLEARClinton Memorial HospitalComment on above: Performed By: #### PREGU, UMICRO, ERUR #### [facility] [address] [address] [address] Crys Turner (U)LT. YELLOWNormalYELLOWClinton Memorial HospitalComment on above:Performed By: #### PREGU, UMICRO, ERUR #### [facility] [address] [address] [address] Crys CamachoCENTRAL VALLEY [facility]ICAL [facility] micrscopic examination will be performed if indicated. NormalClinton Memorial HospitalCombronson battle creek hospital on above:Performed By: #### PREGU, UMICRO, ERUR #### [facility] [address] [address] [address] Crys HutchinsonGlucose Ql (U)NegativeNormalNEGATIVEClinton Memorial HospitalComment on above:Performed By: #### PREGU, UMICRO, ERUR #### [facility] [address] [address] [address] Crys HutchinsonHemoglobin Ql (U)LARGEAbnormalNEGATIVESelect Medical [facility]ty [facility] [place] on above:Performed By: #### PREGU, UMICRO, ERUR #### [facility] [address] [address] [address] Crys HutchinsonKetones Ql (U)NegativeNormalNEGATIVEClinton Memorial HospitalComment on above:Performed By: #### PREGU, UMICRO, ERUR #### [facility] [address] [address] [address] Crys HutchinsonLEUKOCYTESTRACEAbnormalNEGATIVEThe Crow HospitalComment on above:Performed By: #### PREGU, UMICRO, ERUR #### [facility] [address] [address] [address] Crys Nava Ql (U)NegativeNormalNEGATIVEThe [facility] HospitalComment on above:Performed By: #### PREGU, UMICRO, ERUR #### [facility] [address] [address] [address] Crys HutchinsonpH (U)5.5 [pH]Normal5-9The [facility] HospitalComment on above: Performed By: #### PREGU, UMICRO, ERUR #### [facility] [address] [place] [address] Dr. Crys HutchinsonSPEC GRAVITY1.928Rzdpmz4.005-<=1.025The [facility]ermont HospitalComment on above:Performed By: #### PREGU UMICRO, ERUR #### [facility] [address] [place] [address] Dr. Crys Parekh PROTEINNegativeNormalNEGATIVE/ TRACEThe [facility] Comment on above:Performed By: #### PREGU, UMICRO, ERUR #### [facility] [address] [place] [address] Dr. Crys Chadwick MICRO INDINDICATEDNormKettering Health DaytonComment on above: Performed By: #### PREGU, UMICRO, ERUR #### [facility] [address] [place] [address] Dr. Crys Puentebilinogen Qn (U)0.2 {Ryann'U}/dLNormal0.2 - 1.0The [facility] HospitalComment on above:Performed By: #### PREGU, UMICRO, ERUR #### [facility] [address] [place] [address] Dr. Crys HutchinsonPREGNANCY URon 21-25-6775QRXSQWPYG, QUALNegativeNormalNEGATIVEThe [facility] HospitalComment on above:Performed By: #### PREGU, UMICRO, ERUR #### [facility] [address] [address] [address] Crys Huston MICROSCOPIC ONLYon 08-92-4692KIMQQROOHVMCKSsnlxvawWEJP SEEN [facility] on above:Performed By: #### PREGU, UMICRO, ERUR #### [facility] [address] [address] [address] Crys Waite identified Cx Nom (U)INDICATEDNormalThe [facility] HospitalCombronson battle creek hospital on above:Performed By: #### PREGU, UMICRO, ERUR #### [facility] [address] [address] [address] Crys GomesE SEENNormalNONE SEENChildren's Hospital of [facility] on above:Performed By: #### PREGU, UMICRO, ERUR #### [facility] [address] [address] [address] Crys Isbellystals LM Nom (Urine sed)NONE SEENNormalNONE SEENThe [facility] on above:Performed By: #### PREGU, UMICRO, ERUR #### [facility] [address] [address] [address] Spangler ChangEpithelial cells LM Ql (Urine sed)FEWAbnormalNONE SEEN /RAREThe [facility] on above:Performed By: #### PREGU, UMICRO, ERUR #### [facility] [address] [address] [address] Crys BoswellCOUSNONE SEENNormalNONE SEENChildren's Hospital of [facility] on above:Performed By: #### PREGU, UMICRO, ERUR #### [facility] [address] [address] [address] Crys CamachoBomchXIF83-03Ngmicedk1-5WxvChildren's Hospital of [facility] on above: Performed By: #### PREGU, UMICRO, ERUR #### [facility] [address] [address] [address] Crys ZamoraBC2-5AbnormalNONE SEENThe [facility]wood HospitalComment on above: Performed By: #### ADDIEURIDGE, ERUR #### [facility] [address] [address] [address] Crys HutchinsonXR CHEST 1 Von 85-19-6285TB CHEST 1 VEXAMINATION: XR CHEST 1 V HISTORY: Cough COMPARISON: None. TECHNIQUE: Portable chest FINDINGS: The lung parenchyma is free of consolidation or infiltrate. No pneumothorax or pleural effusion. The cardiac, mediastinal and hilar contours are normal. The visualized osseous structures exhibit no gross abnormality. IMPRESSION: Normal chest x-ray. Electronically authenticated by: JAC HOGUE Date: 2022-11-05 22:55NormMansfield Hospitale [facility] HospitalCovid-19 PCR (CVDTBH)on 92-62-4242WYDR-CoV-2 (COVID-19) RNA ALTAF+probe Ql (Unsp spec)Not detectedNormalNOT DETECTEDThe [facility] Comment on above:Result Comment: This test is not yet approved or cleared by the [place] FDA. When there are no FDA-approved or cleared tests available, and other criteria are met, FDA can make tests available under an emergency access mechanism called an Emergency Use Authorization (EUA). The EUA for this test is supported by the Local Delivery Truck Driver of Health and Human Service's (HHS's) declaration [...] consistent with SARS-CoV-2.Performed By: #### CVDTBH #### [facility] [address] [address] [address] Crys HutchinsonGROUP A STREP CULTUREon 11-05-2022S. pyogenes Ag Ql (Unsp spec) Culture Observations: NEGATIVE FOR GROUP A STREPTOCOCCUS.NormalThe [facility] HospitalComment on above: Performed By: #### SSCRN, GRASTCX #### [facility] [address] [address] [address] Crys HutchinsonINFLHILARYZA A AND B AGon 39-46-7802WXCNTTCBC A AGNegativeNormal NEGATIVE SEE COMMENTThe [facility] HospitalComment on above:Performed By: #### INFLUAB #### [facility] [address] [place] [address] Dr. Crys HutchinsonINFLABY B AGNegativeNormalNEGATIVE SEE COMMENTThe [facility]ermont HospitalComment on above:Performed By: #### INFLUAB #### [facility] [address] [place] [address] Dr. Crys HutchinsonSTREPT SCREENon 18-37-4315ABWCH SCREEN ANegativeNormalNEGATIVEThe [facility] HospitalComment on above:Performed By: #### SSCRTameka, GRASTCX #### [facility] [address] [place] [address] Dr. Crys HutchinsonCovid-19 PCR ([facility])on 29-21-5656YFLS-CoV-2 (COVID-19) RNA ALTAF+probe Ql (Unsp spec)Not detectedNormalNOT DETECTEDThe [facility] Comment on above:Result Comment: This test is not yet approved or cleared by the [place] FDA. When there are no FDA-approved or cleared tests available, and other criteria are met, FDA can make tests available under an emergency access mechanism called an Emergency Use Authorization (EUA). The EUA for this test is supported by the [place] of Health and Human Service's (HHS's) declaration [...] SARS-CoV-2.Performed By: #### RIDGE CHRISTINE ERUR #### [facility] [address] [place] [address] Dr. Crys Gupta AND B AGon 13-25-5735JGPONCFOUTQMWSelect Medical [facility]ty [facility], [facility] on above:Result Comment: Negative for Flu A protein angiten. Infection due to Flu A cannot be ruled out. FluA angiten in the sample may be below the detection limit of the test.Performed By: #### INFLUAB #### [facility] [address] [place] [address] Dr. Crys BearUBNEGHSUC [facility] on above: Result Comment: Negative for Flu B protein antigen. Infection due to Flu B cannot be ruled out. FluB antigen in the sample may be below the detection limit of the test.Performed By: #### INFLUAB #### [facility] [address] [place] [address] Dr. Crys Gupta AGNegativeNormalNEGATIVE SEE COMMENTThe [facility] on above:Performed By: #### INFLUAB #### [facility] [address] [place] [address] Dr. Crys Meadows AGNegativeNormalNEGATIVE SEE COMMENTThe [facility] on above:Performed By: #### INFLUAB #### [facility] [address] [place] [address] Dr. Crys HutchinsonINTERNAL CONTROLSWithin Normal LimitsNormalWithin Normal Limits [facility] on above:Performed By: #### INFLUAB #### [facility] [address] [place] [address] Dr. Crys Hutchinson Vital Signs Date TimeVital SignValuePerforming JqstkeglyJjyzrcxm96-00-7144 15:58-0400Body mass index (BMI) [Ratio]34.78 kg/n8Kdclg Kisha DO Work Phone: [facility] CenterCxqmfzvnja18-78-4091 15:58-0400Body dmcdqi73.8 kg Kristen Kisha DO Work Phone: [facility] CenterNvtbrjgoov04-27-6988 15:58-0400Diastolic blood mm[Hg]Kristen Kisha DO Work Phone: [facility] Yvulwqcnjl17-91-5830 15:58-0400Systolic blood kdrytthw088 mm[Hg]Kristen Kisha DO Work Phone: [facility] Encounters Encounter DateEncounter TypeCare ProviderFacilityStart: 09-01-2025 End: 67-13-5845Prjyyu outpatient visit 5 minutesRylee Northeim PA Work Phone: [facility] Mann DermatologyComment on above:Psoriasis vulgaris (Primary Dx); High risk medication useStart: 09-01-2025 End: 50-54-0501zpbqxafxgvGTGEM NORTHEIMNot AvailableStart: 09-01-2025 End: 00-92-1173Fwwxua flowsheetRylee Northeim PA Work Phone: [facility] DermatologyStart: 09-01-2025 End: 28-05-0311Olncnz flowsheetRylee Northeim PA Work Phone: [facility] Mann DermatologyStart: 07-07-2025 End: 69-71-8436Mvivhj outpatient visit 5 minutesRylee Northeim PA Work Phone: [facility] Tripp DermatologyComment on above:Psoriasis vulgaris ; High risk medication useStart: 07-07-2025 End: 00-90-2557vjioyxudnaIBRTW NORTHEIMNot AvailableStart: 05-05-2025 End: 76-95-3309Bzowpo outpatient visit 5 minutesRylee Northeim PA Work Phone: [facility] SWS DERMComment on above:Psoriasis vulgaris (Primary Dx); High risk medication useStart: 05-05-2025 End: 31-56-0372gcyxtuflofWKMZP NORTHEIMNot AvailableStart: 05-05-2025 End: 02-88-2678Ezvuob flowsheetRylee Northeim PA Work Phone: [facility] SWS DERMStart: 05-05-2025 End: 39-07-3654Clbdqs flowsheetFittingRoomCox North PA Work Phone: noms SWS DERMStart: 03-10-2025 End: 32-51-9620Azlomu outpatient visit 5 minutesRylee Joeencompass [facility] PA Work Phone: [facility] SWS DERMComment on above:Psoriasis vulgaris (CMS/HCC) (Primary Dx); High risk medication useStart: 03-10-2025 End: 72-44-8466nbeqmtxpebINADD NORTHMNot AvailableStart: 03-10-2025 End: 48-31-5130Vqzaxl flowsheetLivingston Regional Hospital PA Work Phone: [facility] SWS DERMStart: 03-10-2025 End: 63-66-7139Jxxpzt flowsheetLivingston Regional Hospital PA Work Phone: noms SWS DERMStart: 02-28-2025 End: 46-03-3583Chlfaes encounter procedureCorey Kisha DO Work Phone: [facility] HealthcareStart: 02-28-2025 End: 30-02-6348Cpjomzfc preventive med est patient 18-39 yrsCorey Kisha DO Work Phone: [facility] BCP OBComment on above:Well woman exam with routine gynecological examStart: 02-28-2025 End: 40-61-2819obeppgxujnYMQPU FAZIONot AvailableStart: 02-28-2025 End: 68-72-9156Lnreyf flowsheetCorey Kisha DO Work Phone: [facility] BCP OBStart: 02-28-2025 End: 38-55-1128Hceyqq flowsheetCorey Kisha DO Work Phone: [facility] BCP OBStart: 02-28-2025 End: 32-43-9364Echcxipgy Result EncounterCorey Kisha DO Work Phone: [facility] External Department UnsolicitedStart: 02-07-2025 End: 19-02-7868Rehosk outpatient visit 5 minutesNatalie A Felter TRANSPORTATION DISPATCH MANAGER-MANAGER MEDICAL WRITING Work Phone: NOBI SWS DERMComment on above:Psoriasis vulgaris (CMS/HCC); High risk medication useStart: 02-07-2025 End: 89-03-7382mvssgwugwqZSPWHUF A FELTERNot AvailableStart: 02-07-2025 End: 23-60-3343Fjqkxi flowsheetNatalie A Felter TRANSPORTATION DISPATCH MANAGER-MANAGER MEDICAL WRITING Work Phone: [facility] SWS DERMStart: 02-07-2025 End: 43-74-9425Pvmhlg flowsheetNatalie A Felter TRANSPORTATION DISPATCH MANAGER-MANAGER MEDICAL WRITING Work Phone: [facility] SWS DERMStart: 11-15-2024 End: 60-27-4827Mqqnqd flowsheetRylee [facility] PA Work Phone: [facility] SWS DERMStart: 11-15-2024 End: 39-52-3263Zwselv flowsheetRye [facility] PA Work Phone: [facility] SWS DERMStart: 11-15-2024 End: 56-36-1097Sfbbql outpatient visit 25 minutesLiving[facility] Work Phone: N[facility]S SWS DERMComment on above:Psoriasis vulgaris (CMS/HCC) (Primary Dx); High risk medication use; Acne vulgarisStart: 11-15-2024 End: 73-98-6771aueiascvpmLFOBA NORTHEIMNot AvailableStart: 09-15-2024 End: 92-04-5504Xcjhxq flowsheetlee [facility] PA Work Phone: [facility]S SWS DERMStart: 09-15-2024 End: 53-04-5363Ntnznh flowsheetRylee [facility] PA Work Phone: [facility] SWS DERMStart: 09-15-2024 End: 67-78-9207Lynxab outpatient new 45 minutesLivingston [facility] PA Work Phone: N[facility]S SWS DERMComment on above:Psoriasis vulgaris (CMS/HCC); Acne vulgarisStart: 09-15-2024 End: 21-66-9299snthvenoifZIPWQ NORTHEIMNot AvailableStart: 25-96-6625Ojocvhges Result EncounterCorey Kisha DO Work Phone: noms External Department UnsolicitedStart: 12-11-2023 Clinisync Result EncounterCorey Kisha DO Work Phone: noms External Department UnsolicitedStart: 12-10-2023 Chart abstractingCorey Kisha DO Work Phone: NOMS BCP OBStart: 39-32-2287rweaacozcfGF SAJI MICHELLE . Facility:R9Vohka: 11-07-2022 End: 18-77-8518mqhtefrfkhPQ VIVIAN Welch DENICEFacility:T3Hwopb: 11-05-2022 End: 48-18-6439ocoaapjzbaTV SAJI MICHELLE .Facility:O6Eldzl: 10-22-2022 End: 75-77-0194vzbintccfoATVRXL CRAMERFacility:C4Xsoon: 12-31-2018 End: 12-33-6040Eacmsku encounter procedureJodeb ZazuetaFacility:CD:[id number] Procedures DateProcedureProcedure DetailPerforming ClinicianStart: 95-61-6905CFP,APTIMA HPV,AGE GDLNCorey Kisha DO Work Phone: Start: 80-49-9448Iqiu cerv/vag auto thin layer prep mnl screenCorey Kisha DO Work Phone: Start: 33-82-8680XPN CBC WITH AUTO DIFFCorey Kisha DO Work Phone: Plan of Treatment DateCare ActivityDetailAuthorStart: 03-06-2026 End: 83-71-4739Dznrlzh encounter procedureNOMS BCP OBStart: 11-02-2025 End: 63-32-3234Zcjmolm encounter tykfqzfhy67/07/2026 3:00 PM EST Office Visit [facility] [address] [place] [address] Annette Baez PA [address] [place] [address] NOMReynaldo Mann DermatologyStart: 09-01-2025 End: 23-68-4102Mkgirak encounter procedureNOMS Mackenzie DermatologyComment on above:ArrivedStart: 07-07-2025 End: 66-57-6573Xakqfgx encounter pfwtjywpi46/11/2025 3:50 PM EDT Office Visit [facility] [address] [place] [address] Annette Baez PA [address] [place] [address] NOMS SWS DERMStart: 05-05-2025 End: 37-04-0667Vlblrcb encounter procedureNOMS SWS DERMComment on above:Arrived Start: 03-15-2025 End: 62-48-7140Dvwjjvn encounter rykzirlyp40/20/2025 8:50 AM EDT Office Visit [facility] [address] [place] [address] Annette Baez, JACKSON [address] [place] [address] NOMS SWS DERMStart: 03-10-2025 End: 45-67-5787Qnvpjwb encounter procedureNOMS SWS DERMComment on above:Arrived Start: 02-28-2025 End: 86-82-3546Yajepwc encounter procedureNOMS BCP OBComment on above:Arrived Start: 02-07-2025 End: 47-55-7858Gulgzujg Luucnxy9402/07/2025 3:35 PM EDT Clinical Support [facility] [address] [place] [address] Micheline Souza APRN-TIM [address] [place] [address] ( Work) ArrivedNOMS SWS DERMComment on above:ArrivedStart: 11-15-2024 End: 49-34-9802Ofiodyy aminotransferase [Enzymatic activity/volume] in Serum or PlasmaALT Lab Routine Psoriasis vulgaris (CMS/HCC) High risk medication use Expected: 11/15/2024 (Approximate), Expires: 11/15/2025[facility] HealthcareComment on above:Expected: 11/15/2024 (Approximate), Expires: 11/15/2025Start: 11-15-2024 End: 42-30-2357Bzbtelget aminotransferase [Enzymatic activity/volume] in Serum or PlasmaAST Lab Routine Psoriasis vulgaris (CMS/HCC) High risk medication use Expected: 11/15/2024 (Approximate), Expires: 11/15/2025[facility] HealthcareComment on above:Expected: 11/15/2024 (Approximate), Expires: 11/15/2025Start: 11-15-2024 End: 84-04-3736XOK W Auto Differential panel - BloodCBC and differential Lab Routine Psoriasis vulgaris ([facility]/HCC) High risk medication use Expected: (Approximate), Expires: 11/15/2025[facility] HealthcareComment on above: Expected: 11/15/2024 (Approximate), Expires: 11/15/2025Start: 11-15-2024 End: 33-95-5823Ocxhqcudn B virus surface Ag [Presence] in Serum or Plasma by ImmunoassayHepatitis B surface antigen Lab Routine Psoriasis vulgaris ([facility]/HCC) High risk medication use Expected: 11/15/2024 (Approximate), Expires: 11/15/2025 [facility] HealthcareComment on above:Expected: 11/15/2024 (Approximate), Expires: 11/15/2025Start: 11-15-2024 End: 42-05-9027Hiqsibueq C virus Ab [Presence] in Serum or Plasma by Immunoassay Hepatitis C antibody Lab Routine Psoriasis vulgaris (CMS/HCC) High risk medication use Expected: 11/15/2024 (Approximate), Expires: 11/15/2025[facility] HealthcareComment on above:Expected: 11/15/2024 (Approximate), Expires: 11/15/2025Start: 11-15-2024 End: 95-98-8734OGY 1 RNA,QL REAL TIME PCRHIV 1 RNA,QL REAL TIME PCR Lab Routine Psoriasis vulgaris (CMS/HCC) High risk medication use Expected: 11/15/2024 (Approximate), Expires: 11/15/2025[facility] HealthcareComment on above:Expected: 11/15/2024 (Approximate), Expires: 11/15/2025Start: 11-15-2024 End: 42-75-6738WECAFAEYAGL TB GOLDNOMS Healthcare Work Phone: comment on above:Expected: 11/15/2024 (Approximate), Expires: 11/15/2025Start: 11-15-2024 End: 92-82-2768Sjnpktk encounter procedureNOMS SWS DERMComment on above:Arrived Start: 09-15-2024 End: 23-15-6050Xruavbz encounter /20/2024 8:40 AM EST Office Visit [facility] [address] [place] [address] Annette Baez PA [address] [place] [address] ArrivedNOMS SWS DERMComment on above:ArrivedStart: 02-18-2024 End: 51-66-6726Qsfofvt encounter azxghtidz55/24/2024 3:00 PM EDT Office Visit [facility] [address] [place] [phone] Kristen Beard, DO [address] [place], [place] [phone] NOMS BCP OBStart: 12-11-2023 End: 47-82-8663Ivouypk encounter pfnwacjzg42/15/2024 9:00 AM EST Office Visit [facility] [address] [place] [address] Kristen Beard, DO [address] [place], [place] [id number] Irregular periods/menstrual cycles; Crampy pain associated with mensesNOMS BCP OBComment on above:Irregular periods/menstrual cycles; Crampy pain associated with mensesCytology Cervical or vaginal smear or scraping studyPap Smear Pathology and Cytology Routine Well woman exam with routine gynecological exam Ordered: 02/28/2025[facility] Work Phone: comment on above:Ordered: 02/28/2025 Payers DatePayer CategoryPayerPolicy [id number] Sub[facility] Plan / Payer (Effective 2023-Present) Name: Maria C Flores Relation to Subscriber: Spouse Name: Devin Flores Dateof : 1991 Address: [facility] [address] [place] [address] Payer ID: Not on file Type: Not on file Address: [id number] [place], [place] [id number] [facility] [id number] 2023-Present [phone] [place], [place] [address] [id number] Private Health Fb[id number] 2.840.1.299373.3.579.2.727 [id number] 2.840.1.506665.3.57[id number] 2.840.1.644983.3.579.[id number] 2.0.1.166830.3.579.[id number] 2.16.840.1.577543.3.579.[id number] 2.16.840.1.943473.3.57[id number] 2.16.840.1.905273.3.579.[id number] 2.16.840.1.212439.3.57[id number] 2.16.840.1.316122.3.57[id number] 2.16.840.1.504259.3.579.2.[id number] 2.16.840.1.767735.3.579.2.802068-21-2967Qmwsrmy0632008 2.16.840.1.842951.3.579.2.0[id number] 2.16.840.1.206374.3.579.2.914625-27-4930Wkoe-keo82544091282-15-0402Mgmvuto [id number] Social History DateTypeDetailFacilityStart: 12-10-2023 End: 41-80-8898Gkvgmzy smoking status NHISTobacco smoking consumption unknown [facility] HealthcareStart: 12-10-2023 End: 28-49-7893Ijebujx intakeEx-drinker (finding)[facility]OMS HealthcareStart: 47-33-5429Nqfwywf Comment* current smoker frequency unknownNOAK HealthcareStart: 68-30-4953Bulvatw CommentRecently quitNOMS HealthcareStart: 29-41-9804Ozg Assigned At BirthNot on fileNOAK HealthcareStart: 44-35-7905Ydxmsb identityNot on [facility] HealthcareStart: 06-58-4270Aizgusv smoking status NHISNever smoked tobaccoNOMS HealthcareStart: 53-46-8120Enkvrrn use and exposureSmokeless tobacco non-userNOAK HealthcareStart: 32-59-3445Oxsqugu of Social functionNOAK HealthcareStart: 98-36-2026ShrRqvwecEDKB [facility] Clinical Notes 09-15-2024 to 09-01-2025 Note Date & DrrgAcuoTtalhjpr66-60-4660 History of Present illness Narrative* JACKSON Sargent [...] injection and follow up documented in this encounterResearch Medical CenterHlaoyschhh13-90-3399 History of Present illness Narrative* JACKSON Sargent [...] Next Visit: 09/01, INJECTION documented in this encounterResearch Medical CenterQswcoguizl46-02-6115 History of Present illness Narrative* JACKSON Sargent [...] Location: right thigh Expiration: 06/27/2026 Lot #: [id number] Plan to follow up in 8 weeks for next injection. Related Medications Guselkumab (Tremfya) 100 MG/ML solution auto-injector Inject 100 mg under the skin every 8 (eight) weeks guselkumab (Tremfya) injection 100 mg 2. HIGH RISK MEDICATION USE Related Medications guselkumab (Tremfya) injection 100 mg Next Visit: 2 months documented in this encounterResearch Medical CenterTbkdxemnba37-47-0992 History of Present illness Narrative* JACKSON Sargent [...] Next Visit: as scheduled. documented in this encounterResearch Medical CenterFibvvehxrn49-93-1406 History of Present illness Narrative* Fallon Davidson, PURCHASING/RECEIVING - 02/28/2025 4:00 PM EDT Reason for [...] Medical History: Diagnosis Date Anxiety and depression ([facility]) Contraceptive education Current smoker Hip pain Morbid obesity with BMI of 50.0-59.9, adult ([facility]) Pap smear for cervical cancer screening 2019 Pubic bone pain HISTORY PAST MEDICAL HISTORY SOCIAL HISTORY Past Medical History: Diagnosis Date Anxiety and depression ([facility]) Contraceptive education Current smoker Hip pain Morbid obesity with BMI of 50.0-59.9, adult ([facility]) Pap smear for cervical cancer screening [...] nursing note reviewed. Exam conducted with a estimator and drafter present. Vitals: Estimated body mass index is [...] of: Kristen Beard DO documented in this encounterResearch Medical CenterAwvfjfdvsm36-48-9608 History of Present illness Narrative* Micheline Souza [...] 4 weeks, injection tremfya documented in this encounterResearch Medical CenterPvkfqozpnw98-74-6519 History of Present illness Narrative* Annette Baez, [...] is candidate for injectable biologic medication as chcf use of topical steroids in contraindicated. Discussed [...] months (psoriasis follow up) documented in this encounterResearch Medical CenterTznytauqjq36-38-2519 History of Present illness Narrative* JACKSON Sargent [...] Next Visit: 2 months documented in this encounterNOAK HealthcareEvaluation note* Diagnosis Psoriasis vulgaris (CMS/HCC) Other [...] section and content) DATE CREATED AUTHOR 01/02/2019 [facility] DATE CREATED AUTHOR AUTHOR'S ORGANIZ ATION 02/28/2023 [facility] DATE CREATED AUTHOR AUTHOR'S ORGANIZ ATION 09/03/2025 [facility] EPIC Care Teams (unrecognized sec tion and content) Team MemberRelationshipSpecialtyStart DateEnd Date Saji Mays MD [address] [place] [address] PCP - GeneralFamily Medicine12/11/23Team MemberRelationshipSpecialtyStart DateEnd Date Saji Mays MD [address] [place] [facility] [address] PCP - GeneralFamily Medicine12/11/23Team MemberRelationshipSpecialtyStart DateEnd Date Saji Mays MD [address] [place] [facility] [address] PCP - GeneralFamily Medicine12/11/23Team MemberRelationshipSpecialtyStart DateEnd Date Saji Mays MD [address] [place] [facility] [address] PCP - GeneralFamily Medicine12/11/23Team MemberRelationshipSpecialtyStart DateEnd Date Saji Mays MD [address] [place] [facility] [address] PCP - GeneralFamily Medicine12/11/23Team MemberRelationshipSpecialtyStart DateEnd Date Saji Mays MD [address] [place] [facility] [address] PCP - GeneralFamily Medicine12/11/23Team MemberRelationshipSpecialtyStart DateEnd Date Saji Mays MD PCP - GeneralFamily Medicine12/11/23Team MemberRelationshipSpecialtyStart DateEnd Date Saji Mays MD PCP - GeneralFamily Medicine12/11/23Team MemberRelationshipSpecialtyStart DateEnd Date Saji Mays MD PCP - [facility]12/11/23Te MemberRelationshipSpecialtyStart DateEnd Date Saji Mays MD [address] [place] [facility] [address] PCP - [facility]12/11/23Te MemberRelationshipSpecialtyStart DateEnd Date Saji Mays MD [address] [place] [facility] [address] PCP - [facility]12/11/23Te MemberRelationshipSpecialtyStart DateEnd Saji Mays MD [address] [place] [facility] [address] PCP - [facility]12/11/23Te MemberRelationshipSpecialtyStart DateEnd Saji Mays MD [address] [place] [facility] [address] PCP - [facility]12/11/23 Reason for Visit (unrecogniz ed [...] BE BASED ON THE PRIMARY CLINICAL RECORDS. [facility] [employer] [facility]. provides no warranty or guarantee of the accuracy or completeness of information in this document.
--- NOTE | 2025-10-26 10:00 | CA_ITS ---
Patient Name: TANIYA QUIGLEY MR#: [id number] : 1995 Exam Date: 10/26/2025 Ordering Doctor: TATYANA ALVES ECHOCARDIOGRAM REPORT PROCEDURE: CA ECHO DOPPLER COMPLETE INDICATIONS: Abnormal ECG, SVT (supraventricular tachycardia), former smoker COMPARISON: None. DESCRIPTION: COMPLETE ECHOCARDIOGRAM Real-time transthoracic echocardiography with 2D, M-mode, spectral and color flow Doppler performed. QUALITY: Technical quality was good. LEFT VENTRICLE: Normal chamber size. Normal left ventricular wall thickness. Estimated left ventricular ejection fraction is 55-60 %. LV EF: Normal left ventricular ejection fraction, (>55%). DIASTOLIC: Normal diastolic function. ATRIAL SEPTUM: Visually appears intact. LEFT ATRIUM: Normal chamber size. RIGHT ATRIUM: Normal chamber size. RIGHT VENTRICLE: Normal chamber size. Normal right ventricular systolic function. TRICUSPID VALVE: Normal mobility and thickness. No stenosis with mild regurgitation. No evidence of pulmonary hypertension. RVSP 30 mmHg MITRAL VALVE: Normal mobility and thickness. No evidence of mitral valve stenosis. There is no mitral annular calcification. Trivial mitral regurgitation. AORTIC VALVE: Normal trileaflet appearance. No visible sclerosis. Normal leaflet mobility. No evidence of aortic valve stenosis. No aortic regurgitation. AORTIC ROOT: Normal diameter and appearance, measuring 3.0 cm. PULMONIC VALVE: Normal thickness and mobility. No stenosis. No regurgitation. PERICARDIUM: No evidence of pericardial effusion. IVC: Collapses with inspirations. IVC is normal in size. PLEURA: CONCLUSION: 1. Normal ventricular size and systolic function. Estimated LVEF is 55 to 60%. 2. Normal diastolic function. 3. No significant valvular dysfunction. 4. Normal right-sided pressures. Adult Echocardiography Procedure Report Left Ventricle LVEDD (3.7 - 5.6 cm): 4.90 cm LVESD (2.2 - 4.0 cm): 3.31 cm LVIVS thickness (0.6 - 1.2 cm): 0.98 cm LVPW thickness (0.5 - 1.0 cm): 1.00 cm e': 0.17 m/s E - e': 5.91 LVOT Max Gradient: 2.40 mm[Hg] LVOT Area (cm2): 0.78 m/s Peak Velocity (LVOT): 0.78 m/s Mean Velocity (LVOT): 0.52 m/s LVOT Diameter 2.14 cm Left Ventricular Ejection Fraction: 55-60 % Left Atrium LA Volume Index (2D A2C): 22.66 ml/m2 Left Atrium Systolic Dimension: 3.36 cm Mitral Valve MV E to A Ratio: 1.61 Mitral Valve A-Wave Peak Velocity: 0.61 m/s Mitral Valve E-Wave Peak Velocity: 0.99 m/s Right Ventricle Aorta AO Root Diam: 3.04 cm Aortic Valve AoV Area (Peak Audie): 2.32 cm2, 2.32 cm2 AoV Area (VTI): 1.99 cm2, 1.99 cm2 Peak Velocity(Antegrade Flow): 1.20 m/s Peak Gradient(Antegrade Flow): 5.78 mm[Hg] Mean Velocity(Antegrade Flow): 0.87 m/s Mean Gradient(Antegrade Flow): 3.44 mm[Hg] Velocity Time Integral: 28.68 cm Tricuspid Valve Peak Velocity (Regurgitant Flow): 2.16 m/s, 2.62 m/s, 2.36 m/s Pulmonic Valve Mean Gradient: 2.13 mm[Hg] Mean Velocity: 0.68 m/s Peak Velocity: 1.00 m/s Peak Gradient: 4.02 mm[Hg] Right Atrium Right Atrium Systolic Pressure: 31.85 ml, 31.85 ml Dictated by: Chao August M.D. on 10/26/2025 at 16:48 Approved by: Chao August M.D. on 10/26/2025 at 16:52
== END 2025-10-26 09:44 | disposition home or self-care (01) ==
LOC: CARD 09:43
PROVIDERS: PCP Family Medicine; Visit Provider Internal Medicine Cardiovascular Disease
DX: I47.10 Supraventricular tachycardia, unspecified (principal); R94.31 Abnormal electrocardiogram [ECG] [EKG]
CPT/HCPCS: 93306